=== PATIENT | male | born 1960 | race Caucasian/White ===

== ENCOUNTER → 2017-05-23 09:41 | Outpatient (CLI) | payer OTHER, SELFPAY ==
--- NOTE | 2017-05-23 09:42 | CDU_ITS ---
Reason For Study: Carotid stenosis Rt. Velocities/BP Lt. Velocities/BP Prox CCA 117.0/18.2 cm/sec. Prox CCA 135.0/29.5 cm/sec. Mid CCA 113.0/12.9 cm/sec. Mid CCA 115.0/23.6 cm/sec. Dist CCA 93.8/15.8 cm/sec. Dist CCA 90.4/22.0 cm/sec. Prox ICA 165.0/54.2 cm/sec. Prox ICA 47.5/15.3 cm/sec. Mid ICA 111.0/34.8 cm/sec. Mid ICA 65.8/23.6 cm/sec. Dist ICA 84.8/24.2 cm/sec. Dist ICA 60.5/20.6 cm/sec. Rt. ICA/CCA = 1.5. Lt. ICA/CCA = .57. Prox ECA 99.7/10.6 cm/sec. Prox ECA 116.0/15.7 cm/sec. Rt. Vert. 56.3/14.7 cm/sec. Lt. Vert. 45.1/14.1 cm/sec. Right Extracranial There is intimal thickening but no significant atherosclerotic plaque noted in the right common carotid artery. There is heterogeneous, irregular atherosclerotic plaque noted in the right internal carotid artery. There is homogeneous, smooth atherosclerotic plaque noted in the right external carotid artery. Antegrade flow is noted in the right vertebral artery. Left Extracranial There is homogeneous, smooth atherosclerotic plaque noted in the left common carotid artery. There is no significant atherosclerotic plaque noted in the left internal carotid artery. There is no significant atherosclerotic plaque noted in the left external carotid artery. Antegrade flow is noted in the left vertebral artery. Procedure Carotid Duplex [id number]. Exam performed in department. Interpretation Summary Irregular, calcific plague at the proximal right internal carotid with 50-69% stenosis. Post - operative patch changes of the left carotid bulb and proximal internal carotid with <50% stenosis. Normal flow bilateral external carotids. Patent and antegrade bilateral vertebrals Ordering Physician: Blane Bronson Referring Physician: Blane Bronson Performed By: Estefanía Klein RVT
== END ==
PROVIDERS: Family Provider Family Medicine; PCP Family Medicine; Visit Provider Surgery
DX: I65.23 Occlusion and stenosis of bilateral carotid arteries (principal)
CPT/HCPCS: 93880

== ENCOUNTER → 2018-08-05 07:40 | Outpatient (CLI) | payer OTHER, SELFPAY ==
[2017-03-06 08:17] VITALS: BMI 25.5
--- NOTE | 2018-08-05 07:42 | CDU_ITS ---
Reason For Study: Carotid stenosis Rt. Velocities/BP Lt. Velocities/BP Prox CCA 115.2/22.6 cm/sec. Prox CCA 115.6/26.1 cm/sec. Mid CCA 106/18.6 cm/sec. Mid CCA 95.5/18.8 cm/sec. Dist CCA 74.7/18.6 cm/sec. Dist CCA 87.6/20 cm/sec. Prox ICA 233.9/62.9 cm/sec. Prox ICA 62.6/19.2 cm/sec. Mid ICA 174.3/44.8 cm/sec. Mid ICA 78.3/26.7 cm/sec. Dist ICA 139.4/40.7 cm/sec. Dist ICA 82.8/34.4 cm/sec. Rt. ICA/CCA = 2.2. Lt. ICA/CCA = 0.9. Prox ECA 89.1/8.2 cm/sec. Prox ECA 115.8/15.1 cm/sec. Rt. Vert. 59.8/14.5 cm/sec. Lt. Vert. 55.3/17.9 cm/sec. Right Extracranial There is homogeneous, smooth atherosclerotic plaque noted in the right common carotid artery. There is heterogeneous, irregular atherosclerotic plaque noted in the right internal carotid artery. There is homogeneous, smooth atherosclerotic plaque noted in the right external carotid artery. Antegrade flow is noted in the right vertebral artery. Left Extracranial There is heterogeneous, irregular atherosclerotic plaque noted in the left common carotid artery. There is intimal thickening but no significant atherosclerotic plaque noted in the left internal carotid artery. There is intimal thickening but no significant atherosclerotic plaque noted in the left external carotid artery. Antegrade flow is noted in the left vertebral artery. Procedure Carotid Duplex 35850. Exam performed in department. Interpretation Summary Irregular calcific plague at the proximal right internal and external carotid arteries. >70% stenosis right internal carotid <50% stenosis right external carotid Patent and antegrade right vertebral Post operative changes left carotid bulb and proximal internal carotid with irregular plague <50% stenosis left internal carotid <50% stenosis left external carotid Patent and antegrade left vertebral Findings suggest progression of disease on the right since 05/23/18 Ordering Physician: Blane Bronson Referring Physician: Blane Bronson Performed By: Nan Shipman RVT
== END ==
PROVIDERS: Family Provider Family Medicine; PCP Family Medicine; Referring Provider Surgery; Visit Provider Surgery
DX: I65.22 Occlusion and stenosis of left carotid artery (principal); I77.9 Disorder of arteries and arterioles, unspecified
CPT/HCPCS: 93880

== ENCOUNTER → 2018-09-17 09:27 | Outpatient (CLI) | payer OTHER, SELFPAY ==
--- NOTE | 2018-09-17 09:33 | STEWCON_ITS ---
Reason For Study: CHEST PAIN Stress Results Protocol: Stress Echocardiogram Maximum Predicted HR: 160 bpm Target HR: 136 bpm % Maximum Predicted HR: 91 % DurationHeart Rate Stage (mm:ss) (bpm) BP Comment BASELINE 65 135/793CC DILUTED DEFINITY USED DURING STRESS ALLISON PROTOCOL- STAGE 1 3:00 110 140/80NO SX ALLISON PROTOCOL- STAGE 2 3:00 128 158/82NO SX ALLISON PROTOCOL- STAGE 3 2:30 146 160/84SL SOB, LEG PAIN RECOVERY 96 150/80SX RESOLVED Stress Duration: 8:30 mm:ss Maximum Stress HR: 146 bpm METS: 9 Baseline Echocardiogram Findings Stress Echo Wall motion Data Resting WM Intermediate WM Stress WM Resting Wall Motion Wall Motion Stress All segments Normal. All segments Hyperkinetic. Ejection Fraction 55 %. Ejection Fraction 65 %. Stress Results Heart rate response: Normal resting heart rate-appropriate response Blood pressure: Resting hypertension-appropriate blood pressure response Arrhythmias: None Functional capacity: Good Stopped: Secondary to dyspnea and leg discomfort. EKG Data The baseline ECG displays normal sinus rhythm. Exercise ECG: Somatic/motion artifact with no obvious ECG changes. Symptoms with Stress No complaint of chest discomfort during exercise or recovery. Interpretation Summary Technically difficult study Contrast injection performed Negative (adequate) stress echocardiogram Ordering Physician: Valeriy Bobo Referring Physician: Valeriy Bobo Performed By: Jessica Wills, ROSSANA, RVT
== END ==
PROVIDERS: Family Provider Family Medicine; PCP Family Medicine; Referring Provider Family Medicine; Visit Provider Family Medicine
DX: R07.9 Chest pain, unspecified (principal); R00.2 Palpitations
CPT/HCPCS: 93017; 93225; 93226; 93350; Q9957; A4216; C8928

== ENCOUNTER → 2019-05-26 09:44 | Outpatient (CLI) | payer OTHER, SELFPAY ==
--- NOTE | 2019-05-26 09:46 | CDU_ITS ---
Reason For Study: Carotid stenosis Rt. Velocities/BP Lt. Velocities/BP Prox CCA 117.8/17.3 cm/sec. Prox CCA 112/22.5 cm/sec. Mid CCA 102.1/21.3 cm/sec. Mid CCA 96.2/22.5 cm/sec. Dist CCA 74.7/17.3 cm/sec. Dist CCA 85.1/21.2 cm/sec. Prox ICA 187.3/57.8 cm/sec. Prox ICA 55.1/20.1 cm/sec. Mid ICA 153.6/42.2 cm/sec. Mid ICA 91.5/35.5 cm/sec. Dist ICA 117.4/35.3 cm/sec. Dist ICA 68.8/25.2 cm/sec. Rt. ICA/CCA = 1.8. Lt. ICA/CCA = 1.0. Prox ECA 106/10.8 cm/sec. Prox ECA 117.4/17 cm/sec. Rt. Vert. 54.2/10.2 cm/sec. Lt. Vert. 55.3/17.9 cm/sec. Right Extracranial There is homogeneous, smooth atherosclerotic plaque noted in the right common carotid artery. There is heterogeneous, irregular atherosclerotic plaque noted in the right internal carotid artery. Unable to demonstrate correlating velocities in the KATIE as compared to 08/05/2018. There is homogeneous, smooth atherosclerotic plaque noted in the right external carotid artery. Antegrade flow is noted in the right vertebral artery. Left Extracranial There is heterogeneous, irregular atherosclerotic plaque noted in the left common carotid artery. There is heterogeneous, irregular atherosclerotic plaque noted in the left internal carotid artery. There is intimal thickening but no significant atherosclerotic plaque noted in the left external carotid artery. Antegrade flow is noted in the left vertebral artery. Procedure Carotid Duplex 24073. Exam performed in department. Interpretation Summary Irregular calcific plaque at the proximal right internal carotid 50-69% stenosis right internal carotid <50% stenosis right external carotid Postoperative change left carotid bulb and proximal internal carotid with irregular calcific plaque noted. <50% stenosis left internal carotid Patent, antegrade vertebrals bilaterally Ordering Physician: Blane Bronson Referring Physician: Valeriy Bobo Performed By: Nan Shipman RVT
== END ==
PROVIDERS: PCP Family Medicine; Referring Provider Surgery; Visit Provider Surgery
DX: I65.22 Occlusion and stenosis of left carotid artery (principal)
CPT/HCPCS: 93880

== ENCOUNTER → 2020-02-03 | Outpatient (CLI) | payer OTHER, SELFPAY ==
[2019-06-30 14:05] VITALS: BMI 25.5
--- NOTE | 2020-02-03 | IMM_PTH ---
PATIENT: EVANGELINA CALHOUN LOC: [facility] U#:[id number] AGE/SX: 59/M ROOM: RE02/03/[address]: Dr. Jose Wing MD : 1960 BED: DIS: 02/03/2020 SPEC #: [id number] RECD: 02/04/20 13:22 STATUS: ALEXSANDRA REQ #: [id number] TIKI: 02/03/20 00:[address]: Jose Wing DEPT: IMMUNOHISTOCHEMISTRY RECD BY: Shaylee Kelly ENTERED: 02/04/20 13:22 SP TYPE: IMMUNO OTHR DR: Dr. Valeriy Bobo MD Tissues: F - PROSTATE LEFT Procedures: P40 (add) 34BE12 (initial) PHYSICIAN & INSTITUTION [place] [id number] SPECIMEN INFORMATION: Tissue Source: F - Left prostate, base, core biopsy Clinical Info: Elevated PSA Specimen Number: [id number] CPT code: 90448, 14705 METHODOLOGY: Deparaffinized sections of prefer/formalin-fixed tissue or PAP/DQ stained slides are incubated with monoclonal/polyclonal antibodies/oligonucleotide probes. Localization is made via biotin free immunoperoxidase method. Appropriate controls are performed and reacted as expected. Results on target cell population are indicated in the following table: RESULTS: ANTIBODY / CLONE RESULT Block F P40 (BC28) positive 34BE12 (34BE12) positive These tests were developed and their performance characteristics determined by [facility]. They may not have been cleared or approved by the U.[place]. Food and Drug Administration. The FDA has determined that such clearance or approval is not necessary. The above immunohistochemical/dualISH markers are ordered and reviewed by the Pathologist. INTERPRETATION: F. Left prostate, base, core biopsy: Consistent with focal high-grade prostatic intraepithelial neoplasia (HGPIN). MARQUITA:daren 02/05/20
--- NOTE | 2020-02-03 11:30 | PROSBIL_PTH ---
PATIENT: EVANGELINA CALHOUN LOC: [facility] U#:[id number] AGE/SX: 59/M ROOM: RE02/03/[address]: Dr. Jose Wing MD : 1960 BED: DIS: 02/03/2020 SPEC #: [id number] RECD: 02/03/20 13:09 STATUS: ALEXSANDRA REPapo #: [id number] TIKI: 02/03/20 11:[address]: Jose Wing DEPT: SURGICAL PATHOLOGY RECD BY: Megan Johnson ENTERED: 02/03/20 13:10 SP TYPE: PROST BX NEIL DR: Dr. Valeriy Bobo MD Tissues: A - PROSTATE RIGHT B - PROSTATE RIGHT C - PROSTATE RIGHT D - PROSTATE LEFT E - PROSTATE LEFT F - PROSTATE LEFT Procedures: PROSTATE BX HEADER OPERATION: Prostate biopsy PRE-OP DIAGNOSIS: Elevated PSA TISSUE SUBMITTED: A - Right apex, B - Right mid, C - Right base, D - Left apex, E - Left mid, F - Left base MICROSCOPIC DIAGNOSIS A. Right prostate, apex, core biopsy: Prostatic tissue, negative for malignancy. Focal atrophy and mild chronic inflammation. B. Right prostate, mid, core biopsy: Prostatic tissue, negative for malignancy. Focal mild acute and chronic inflammation. C. Right prostate, base, core biopsy: Prostatic tissue, negative for malignancy. Focal mild acute and chronic inflammation. D. Left prostate, apex, core biopsy: Prostatic tissue, negative for malignancy. E. Left prostate, mid, core biopsy: Prostatic tissue, negative for malignancy. Focal mild chronic inflammation. F. Left prostate, base, core biopsy: Focal high-grade prostatic intraepithelial neoplasia (HGPIN). Focal atrophy and chronic inflammation. See comment. SJ:daren 02/04/20 COMMENT F. Immunohistochemistry ([id number]) supports the above diagnosis. MICROSCOPIC DESCRIPTION Slides are reviewed. GROSS DESCRIPTION A - Received is one container designated prostate, right apex. The specimen consists of one elongated fragment of light wright-white soft tissue measuring 1.7 cm in length and 0.1 cm in diameter. The specimen is totally submitted in one cassette. B - Received is one container designated prostate, right mid. The specimen consists of two elongated fragments of light wright-white soft tissue measuring 1.2 and 1.8 cm in length and 0.1 cm in diameter. The specimen is totally submitted in one cassette. C - Received is one container designated prostate, right base. The specimen consists of two elongated fragments of light wright-white soft tissue each measuring 1.5 cm in length and 0.1 cm in diameter. The specimen is totally submitted in one cassette. D - Received is one container designated prostate, left apex. The specimen consists of one elongated fragment of light wright-white soft tissue measuring 1.2 cm in length and 0.1 cm in diameter. The specimen is totally submitted in one cassette. E - Received is one container designated prostate, left mid. The specimen consists of two elongated fragments of light wright-white soft tissue measuring 1.5 and 1.7 cm in length and 0.1 cm in diameter. The specimen is totally submitted in one cassette. F - Received is one container designated prostate, left base. The specimen consists of two elongated fragments of light wright-white soft tissue each measuring 1.5 cm in length and 0.1 cm in diameter. The specimen is totally submitted in one cassette. / SJ:rg 02/03/20 TC:3 CPT: 14374 x6
== END | disposition home or self-care (01) ==
LOC: LABSPEC 12:43
PROVIDERS: PCP Family Medicine; Visit Provider Urology
DX: R97.20 Elevated prostate specific antigen [PSA] (principal)
CPT/HCPCS: 88305; 88341; 88342; G0416

== ENCOUNTER → 2020-06-09 08:41 | Outpatient (CLI) | payer OTHER, SELFPAY ==
[2019-06-30 14:05] VITALS: BMI 25.5
--- NOTE | 2020-06-09 08:43 | CDU_ITS ---
Reason For Study: carotid stenosis Rt. Velocities/BP Lt. Velocities/BP Prox CCA 100.8/16.0 cm/sec. Prox CCA 134.4/19.4 cm/sec. Mid CCA 111.2/22.6 cm/sec. Mid CCA 119.8/28.5 cm/sec. Dist CCA 104.7/18.6 cm/sec. Dist CCA 114.3/24.8 cm/sec. Prox ICA 202.6/44.6 cm/sec. Prox ICA 66.0/16.9 cm/sec. Mid ICA 190.0/34.2 cm/sec. Mid ICA 92.6/32.2 cm/sec. Dist ICA 135.2/36.4 cm/sec. Dist ICA 40.3/12.2 cm/sec. Rt. ICA/CCA = 202.6/111.2=1.8. Lt. ICA/CCA = 92.6/134.4=0.7. Prox ECA 108.6/13.4 cm/sec. Prox ECA 145.4/8.4 cm/sec. Rt. Vert. 47.9/13.0 cm/sec. Lt. Vert. 52.0/18.0 cm/sec. Right Extracranial There is homogeneous, smooth atherosclerotic plaque noted in the right common carotid artery. There is heterogeneous, irregular atherosclerotic plaque noted in the right internal carotid artery. There is homogeneous, smooth atherosclerotic plaque noted in the right external carotid artery. Antegrade flow is noted in the right vertebral artery. There is heterogeneous, irregular atherosclerotic plaque noted in the right bulb. Left Extracranial There is heterogeneous, irregular atherosclerotic plaque noted in the left common carotid artery. There is heterogeneous, irregular atherosclerotic plaque noted in the left internal carotid artery. There is homogeneous, smooth atherosclerotic plaque noted in the left external carotid artery. Antegrade flow is noted in the left vertebral artery. Procedure Carotid Duplex 59307. This is a Carotid Duplex examination using B-mode, color flow and specral Doppler. Exam performed in department. VL/Carotid Duplex Ultrasound Interpretation Summary Irregular plague at the proximal right internal carotid with 50-69% stenosis. <50% stenosis right external carotid Post-operative changes left carotid bulb and proximal internal carotid with <50 % stenosis left internal carotid <50% stenosis left external carotid Patent, antegrade vertebrals bilaterally No change from 05/26/19 Ordering Physician: Blane Bronson Referring Physician: Valeriy Bobo Performed By: Jessica Wills, RDCS, RVT
== END ==
PROVIDERS: PCP Family Medicine; Referring Provider Surgery; Visit Provider Surgery
DX: I65.23 Occlusion and stenosis of bilateral carotid arteries (principal)
CPT/HCPCS: 93880

== ENCOUNTER → 2020-06-17 09:14 | Outpatient (CLI) | payer OTHER, SELFPAY ==
[2019-06-30 14:05] VITALS: BMI 25.5
[2020-06-17 10:22] LABS: PSA,Total- Diagnostic 7.45 ng/mL (0.0-4.0)
== END ==
PROVIDERS: PCP Family Medicine; Referring Provider Urology; Visit Provider Urology
DX: R97.20 Elevated prostate specific antigen [PSA] (principal)
CPT/HCPCS: 36415; 84153

== ENCOUNTER → 2020-10-18 14:15 | Outpatient (CLI) | payer OTHER, SELFPAY ==
[2020-10-18 15:36] LABS: PSA,Total- Diagnostic 5.68 ng/mL (0.0-4.0)
== END ==
PROVIDERS: PCP Family Medicine; Referring Provider Urology; Visit Provider Urology
DX: R97.20 Elevated prostate specific antigen [PSA] (principal)
CPT/HCPCS: 36415; 84153

== ENCOUNTER → 2021-06-24 | Outpatient (CLI) | payer OTHER, SELFPAY ==
--- NOTE | 2021-06-24 07:42 | CDU_ITS ---
Reason For Study: Carotid stenosis Rt. Velocities/BP Lt. Velocities/BP Prox CCA 106.5/18.8 cm/sec. Prox CCA 104.4/26.7 cm/sec. Mid CCA 95.5/17 cm/sec. Mid CCA 109.6/29.3 cm/sec. Dist CCA 70.4/15.1 cm/sec. Dist CCA 95/20.4 cm/sec. Prox ICA 253.1/78.5 cm/sec. Prox ICA 58.6/17.9 cm/sec. Mid ICA 161.4/44.8 cm/sec. Mid ICA 94.8/31.1 cm/sec. Dist ICA 86.2/24.8 cm/sec. Dist ICA 98.1/35.5 cm/sec. Rt. ICA/CCA = 2.65. Lt. ICA/CCA = 0.94. Prox ECA 88.8/9 cm/sec. Prox ECA 88.2/6 cm/sec. Rt. Vert. 46.6/9.7 cm/sec. Lt. Vert. 48.5/15.4 cm/sec. Right Extracranial There is homogeneous, smooth atherosclerotic plaque noted in the right common carotid artery. There is heterogeneous, irregular atherosclerotic plaque noted in the right internal carotid artery. There is homogeneous, smooth atherosclerotic plaque noted in the right external carotid artery. Antegrade flow is noted in the right vertebral artery. Left Extracranial There is heterogeneous, irregular atherosclerotic plaque noted in the left common carotid artery. There is heterogeneous, irregular atherosclerotic plaque noted in the left internal carotid artery. There is heterogeneous, irregular atherosclerotic plaque noted in the left external carotid artery. Antegrade flow is noted in the left vertebral artery. Procedure Carotid Duplex 55112. This is a Carotid Duplex examination using B-mode, color flow and specral Doppler. Prelim to Nallely. Exam performed in department. VL/Carotid Duplex Ultrasound Interpretation Summary Irregular calcific plaque at the proximal right internal carotid artery with gr eater than 70% stenosis. Less than 50% stenosis right external carotid artery Postoperative changes of the left carotid bulb and proximal internal carotid ar omer with less than 50% stenosis of the internal carotid artery Less than 50% stenosis left external carotid artery Patent and antegrade vertebral arteries bilaterally Slight progression of disease involving the right proximal internal carotid art cindy from the previous examination of June 09, 2020 Ordering Physician: Blane Bronson Referring Physician: Valeriy Bobo Performed By: Nan Shipman RVT
== END | disposition home or self-care (01) ==
LOC: CVS 07:39
PROVIDERS: PCP Family Medicine; Referring Provider Surgery; Visit Provider Surgery
DX: I65.23 Occlusion and stenosis of bilateral carotid arteries (principal)
CPT/HCPCS: 93880

== ENCOUNTER → 2021-07-25 | Outpatient (CLI) | payer OTHER, SELFPAY ==
--- NOTE | 2021-07-25 06:56 | CT_ITS ---
INDICATION: CAROTID STENOSIS EXAMINATION: CTA NECK - CTA Neck WO/W Contrast Injection TECHNIQUE: Routine carotid CT angiogram protocol was performed without and with IV contrast. NASCET criteria using the distal ICAs for comparison were used for evaluation of stenoses. 3D reconstructions were reviewed. A radiation dose optimization technique was used for this scan. IV Contrast dosage and agent: 100 cc [id number] COMPARISON: None. FINDINGS: AORTIC ARCH AND BRANCHES: Normal anatomy, patent. RIGHT CCA: Prominent calcific plaquing at the carotid bulb. No occlusion, significant stenosis or dissection. RIGHT ICA: No occlusion, significant stenosis or dissection. LEFT CCA: Surgical changes of endarterectomy noted at the left carotid bulb. LEFT ICA: No occlusion, significant stenosis or dissection. RIGHT VERTEBRAL ARTERY: No occlusion, significant stenosis or dissection. LEFT VERTEBRAL ARTERY: No occlusion, significant stenosis or dissection. NECK SOFT TISSUES: Unremarkable. LUNG APICES: Clear. BONES: Unremarkable. CT/CTA Neck W/WO Contrast IMPRESSION: No evidence of arterial stenosis, occlusion or dissection. Electronically Signed: August Mcgee MD at 11:54 EDT ,
[2021-07-25 07:06] LABS: CREATININE FINGERSTICK < 0.9 mg/dL (0.70-1.30); EGFR FINGERSTICK > 60.0000 mL/min (>60)
== END | disposition home or self-care (01) ==
LOC: CT 06:54
PROVIDERS: PCP Family Medicine; Referring Provider Surgery; Visit Provider Surgery
DX: Z01.812 Encounter for preprocedural laboratory examination (principal); I65.23 Occlusion and stenosis of bilateral carotid arteries
CPT/HCPCS: 70498; Q9967

== ENCOUNTER 2021-08-29 05:00 | Inpatient (IN) | payer OTHER, SELFPAY ==
--- NOTE | 2021-08-23 08:12 | EKG12_ITS ---
Test Reason : PRE OP Blood Pressure : / mmHG Vent. Rate : 064 BPM Atrial Rate : 064 BPM P-R Int : 154 ms QRS Dur : 092 ms QT Int : 394 ms P-R-T Axes : 045 082 060 degrees QTc Int : 406 ms Normal sinus rhythm Normal ECG Confirmed by ANDREA MCGEE, MANA ([id number]), art editor CUATE ASHFORD ([id number]) on 08/24/2021 9:36:02 AM Referred By: Blane Bronson Confirmed By:MANA MENDEZ MD
[2021-08-23 08:58] LABS: Hematocrit 45.1 % (40-54); Hemoglobin 14.9 g/dL (13.0-16.5); Mean Corpuscular Hgb 29.3 pg (27.0-32.0); Mean Corpuscular Volume 88.6 fL (80-94); Mean Platelet Vol. 9.6 fl (6.2-12.0); Platelet Count 233 K/mm3 (150-450); RBC Distribution Width CV 14.7 % (11.6-14.6); RBC Distribution Width SD 48.1 fl (35.1-43.9); Red Blood Count 5.09 M/mm3 (4.6-6.2); White Blood Count 8.9 K/mm3 (4.4-11.0)
[2021-08-23 09:21] LABS: Anion Gap 10 (5-15); BUN 12 mg/dL (7-18); BUN/Creat Ratio 13.1 RATIO (10-20); Calcium,Total 8.6 mg/dL (8.5-10.1); Chloride 104 mmol/L (98-107); Creatinine, Serum 0.92 mg/dL (0.70-1.30); EST Glomerular Filtration Rate 89 mL/min (>60); Est Glom Filt Rate - Afr Amer 107 mL/min (>60); Glucose 145 mg/dL (74-106); Sodium Level 137 mmol/L (136-145)
[2021-08-29] VITALS (21 sets, daily range): BP systolic 117–157; BP diastolic 64–88; PULSE 58–89; RESP 14–143; TEMP 36.2–37.3; O2SAT 16–100; BMI 27.0
--- NOTE | 2021-08-29 05:17 | HP.PCM_ITS ---
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 Is patient in pain?: No Allergies No Known Allergies Allergy (Verified 07/27/21 09:59) Medications amlodipine 5 mg PO DAILY 08/22/15 [History Confirmed 07/27/21] Lactobacillus acidophilus 1.5 mg (250 million cell) capsule 100 mmu cells PO DAILY 06/30/19 [History Confirmed 07/27/21] calcium cmb no.1-vit [id number]-B12 120 mg-1,000 unit-10 mg tablet tab PO 06/30/19 [History Confirmed 07/27/21] lisinopril 20 mg tablet 20 mg PO DAILY 06/30/19 [History Confirmed 07/27/21] multivitamin 1 tab PO DAILY 06/30/19 [History Confirmed 07/27/21] omega-3 fatty acids 1,000 mg capsule 1,000 mg PO DAILY 06/30/19 [History Confirmed 07/27/21] PFSH Medical History? Benign essential hypertension Carotid arterial disease Chest pain HLD (hyperlipidemia) Tobacco use disorder Surgical History? Carotid stenosis, left Hx of esophagogastroduodenoscopy Hx of eye surgery S/P appendectomy S/P colonoscopy Family History? Father Lung cancer Social History? Smoking Status:? Current every day smoker second hand exposure:? Yes alcohol intake:? current substance use type:? does not use caffeine:? No what type of physical activity do you participate in:? walking, running and weight training frequency:? 3-4 times per week seatbelt use:? 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 As noted below I saw this patient in the office on July 18, 2021.? 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 On July 25, 2021 at the [facility] the patient had a CTA of the carotid.? The initial interpretation per radiology was no significant disease.? However I personally reviewed the images and detected that he had postoperative changes of the left carotid bulb and internal carotid artery which was widely patent but that he also had clinically significant stenosis with calcific disease at the origin of the right internal carotid artery and more over that he had obvious atrophy of the right internal carotid artery consistent with a lower flow state.? This is actually rather dramatic in comparison from the right to the left internal carotid.? Fortunately I was able to get radiology to make a correct addendum on their initial interpretation. ADDENDUM by Dr. August Mcgee MD on 07/25/21 at 1541 ADDENDUM There may be an ulcerated lack at the origin of the right internal carotid artery.? There may be no greater than 70% stenosis at the origin of the right internal carotid artery. Electronically Signed: August Mcgee MD at 15:41 EDT , 07/25/21 1541Date cc:? Dr. Blane Bronson MD; Dr. Valeriy Bobo MD ~*Signed ADDENDUM by Dr. August Mcgee MD on 07/25/[address]/CTA Neck W/WO Contrast IMPRESSION: undefined 07/25/21 1548Date cc:? Dr. Blane Bronson MD; Dr. Valeriy Bobo MD ~*Signed INDICATION: CAROTID STENOSIS EXAMINATION: CTA NECK - CTA Neck WO/W Contrast Injection TECHNIQUE:? Routine carotid CT angiogram protocol was performed without and with IV contrast. NASCET criteria using the distal ICAs for comparison were used for evaluation of stenoses. 3D reconstructions were reviewed.? A radiation dose optimization technique was used for this scan. IV Contrast dosage and agent: 100 cc [id number] COMPARISON: None. FINDINGS: AORTIC ARCH AND BRANCHES: Normal anatomy, patent. RIGHT CCA: Prominent calcific plaquing at the carotid bulb.? No occlusion, significant stenosis or dissection. RIGHT ICA: No occlusion, significant stenosis or dissection. LEFT CCA: Surgical changes of endarterectomy noted at the left carotid bulb. LEFT ICA: No occlusion, significant stenosis or dissection. RIGHT VERTEBRAL ARTERY: No occlusion, significant stenosis or dissection. LEFT VERTEBRAL ARTERY: No occlusion, significant stenosis or dissection. NECK SOFT TISSUES: Unremarkable. LUNG APICES: Clear. BONES: Unremarkable. CT/CTA Neck W/WO Contrast IMPRESSION: ? No evidence of arterial stenosis, occlusion or dissection. ? Electronically Signed: August Mcgee MD at 11:54 EDT Reading Location ID and State: [facility] / [place] Tel , Service support? , I have just recently seen this patient in the office on July 18, 2021 and my note follows Intake Visit Reasons: FU COROTID Chief Complaint: carotid US results Allergies No Known Allergies Allergy (Verified 07/18/21 07:24) Medications amlodipine 5 mg PO DAILY 08/22/15 [History Confirmed 07/18/21] Lactobacillus acidophilus 1.5 mg (250 million cell) capsule 100 mmu cells PO DAILY 06/30/19 [History Confirmed 07/18/21] calcium cmb no.1-vit V7-R8-OR-B12 120 mg-1,000 unit-10 mg tablet tab PO 06/30/19 [History Confirmed 07/18/21] lisinopril 20 mg tablet 20 mg PO DAILY 06/30/19 [History Confirmed 07/18/21] multivitamin 1 tab PO DAILY 06/30/19 [History Confirmed 07/18/21] omega-3 fatty acids 1,000 mg capsule 1,000 mg PO DAILY 06/30/19 [History Confirmed 07/18/21] [facility] Medical History (Updated 07/18/21 @ 07:[address] Blane Bronson MD) Benign essential hypertension Carotid arterial disease Chest pain HLD (hyperlipidemia) Tobacco use disorder Surgical History Carotid stenosis, left Hx of esophagogastroduodenoscopy Hx of eye surgery S/P appendectomy S/P colonoscopy Family History Father Lung cancer Social History Smoking Status:? Current every day smoker second hand exposure:? Yes alcohol intake:? current substance use type:? does not use caffeine:? No what type of physical activity do you participate in:? walking, running and weight training frequency:? 3-4 times per week seatbelt use:? always HPI HPI HPI: EVANGELINA CALHOUN, is a 61 M who presents to the office today for follow-up of extracranial carotid artery occlusive disease.? His most recent visit with me was June 23, 2020.? Based upon carotid duplex imaging from June 09, 2020 his peak systolic velocity within the right internal carotid was 202 cm/s flow.? Currently that is slightly increased to 253 cm/s flow. Fortunately he is asymptomatic.? No hospitalizations over the past year.? Denies any focal TIAs. He continues to smoke cigarettes at the rate of a pack per day.? In addition he is not on a statin medication.? Claims that he is tried them in the past and developed sore muscles.? 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 He notes that he has had some trouble on the treadmill per tickly with the left calf cramping.? He was told by his chiropractor that it was probably low potassium.? The patient tried eating some more bananas but the problems not resolved. He is mildly hypertensive today.? He does take 2 blood pressure medications.? He is supposed to be on a low-dose aspirin and he takes it when he remembers it. He has known bilateral extracranial carotid artery occlusive disease.? On December 28, 2011 because of a preoperative TIA I performed a left carotid endarterectomy with bovine patch angioplasty.? He is done well since that time. As of August 05, 2018 bilateral carotid duplex imaging demonstrated peak systolic velocity within the right proximal internal carotid at 233 cm/s flow and peak systolic velocity on the left at 82 cm/s.? The patient has had a updated carotid duplex exam at the [facility] on May 26, 2019.? This demonstrates peak systolic velocity within the right proximal internal carotid at 187 cm/s and peak systolic velocity within the left internal carotid at 91 cm/s.? The current examination suggest 50 to 69% stenosis on the right and less than 50% stenosis on the left with postoperative changes on the left.? There is irregular calcific plaque noted bilaterally June 24, 2021 Reason For Study: Carotid stenosis Rt. Velocities/BP ? Lt. Velocities/BP Prox CCA 106.5/18.8 cm/sec. ? Prox CCA 104.4/26.7 cm/sec. Mid CCA 95.5/17 cm/sec. ? Mid CCA 109.6/29.3 cm/sec. Dist CCA 70.4/15.1 cm/sec.? Dist CCA 95/20.4 cm/sec. Prox ICA 253.1/78.5 cm/sec. ? Prox ICA 58.6/17.9 cm/sec. Mid ICA 161.4/44.8 cm/sec.? Mid ICA 94.8/31.1 cm/sec. Dist ICA 86.2/24.8 cm/sec.? Dist ICA 98.1/35.5 cm/sec. Rt. ICA/CCA = 2.65. ? Lt. ICA/CCA = 0.94. Prox ECA 88.8/9 cm/sec. ? Prox ECA 88.2/6 cm/sec. Rt. Vert. 46.6/9.7 cm/sec.? Lt. Vert. 48.5/15.4 cm/sec. Right Extracranial There is homogeneous, smooth atherosclerotic plaque noted in the right common carotid artery. There is heterogeneous, irregular atherosclerotic plaque noted in the right internal carotid artery. There is homogeneous, smooth atherosclerotic plaque noted in the right external carotid artery. Antegrade flow is noted in the right vertebral artery. Left Extracranial There is heterogeneous, irregular atherosclerotic plaque noted in the left common carotid artery. There is heterogeneous, irregular atherosclerotic plaque noted in the left internal carotid artery. There is heterogeneous, irregular atherosclerotic plaque noted in the left external carotid artery. Antegrade flow is noted in the left vertebral artery. Procedure Carotid Duplex 87268. This is a Carotid Duplex examination using B-mode, color flow and specral Doppler. Prelim to Nallely. Exam performed in department. VL/Carotid Duplex Ultrasound Interpretation Summary Irregular calcific plaque at the proximal right internal carotid artery with greater than 70% stenosis. Less than 50% stenosis right external carotid artery Postoperative changes of the left carotid bulb and proximal internal carotid ar omer with less than 50% stenosis of the internal carotid artery Less than 50% stenosis left external carotid artery Patent and antegrade vertebral arteries bilaterally Slight progression of disease involving the right proximal internal carotid artery from the previous examination of June 09, 2020 ? Ordering Physician: Blane Bronson Referring Physician: Valeriy Bobo Performed By: Nan Shipman RVT 06/24/21 0958Date Blane Bronson MD Exam Const General: cooperative, comfortable and no acute distress Nutritional Appearance: overweight Orientation: alert and awake [facility] Head: normal to inspection Neck Other: Well-healed left carotid incision Bilateral carotids approximately 3+.? No carotid bruits Chest Other: Increased AP diameter Resp Other: Diminished respiratory excursion, clear Cardio Rate: regular rate Rhythm: regular rhythm Other: Right femoral pulse 2+ left femoral pulse 1+.? Bilateral popliteals difficult to palpate GI Other: Soft, overweight, no bruits, not pulsatile or expansile Musc Cervical Spine: normal cervical lordosis Neuro General: patient alert, patient awake and patient oriented x3 Extrem General: no calf tenderness Psych Appearance: grossly normal Assessment and Plan Assessment and Plan (1) Tobacco use disorder: ? ? ? Status: Acute (2) Carotid stenosis, right: ? ? ? Status: Acute (3) PAOD (peripheral arterial occlusive disease): ? ? ? Status: Acute ? ? ? Plan - Dr. Blane Bronson MD: The patient has slow progression of his right extracranial carotid occlusive disease based upon carotid duplex imaging.? I recommend that we obtain a CTA of the carotids and we will have him return for further office consultation The patient describes symptoms that is very much consistent with vascular claudication left lower extremity.? Left femoral pulses diminished.? I have instructed him at this point we can pursue further investigation in the future.? We will follow through with his carotid determination and then can pursue his lo wer extremities pending recommendations for his carotid.? As noted fortunately he is still currently asymptomatic.? The patient has been urged multiple times to cease his tobacco use and just has been unable to. I appreciate the ongoing opportunity of assisting with surgical care Copy: Dr. Valeriy Bronson M.D., F.A.C.S. Assessment and Plan Assessment and Plan (1) Carotid stenosis, right: ?Status:?Acute ?Plan - Dr. Blane Bronson MD: Today was a 20-minute consultative appointment.? The patient's previously had a left carotid enterectomy performed by myself approximately 8 years ago.? He is quite familiar with that process.? I do recommend to him a right carotid enterectomy with patch angioplasty and arterial line monitoring.? I have demonstrated to him the atrophy of the right internal carotid distal to its origin at the site of the calcification.? I do believe that he has clinically significant stenosis at the origin of the right internal carotid.? He continues to smoke cigarettes which I believe continues to put him at increased risk.? He then goes on to say that in the morning he has had some filmlike debris over his right more than the left.? He was briefly seen by microsoft access developer who the patient suggested there was a dry eye syndrome.? Eyedrops were recommended and the patient states that this has improved that condition to a degree.? He additionally goes on to say that he was told that one of his retinal arteries was smaller than the other 1 but he honestly cannot remember which side had a smaller artery. He has had an opportunity to ask questions answered.? He wondered whether I would feel comfortable waiting till February 2022 and I suggested probably not.? He is aware that I cannot eliminate his risk of stroke and that with no surgical treatment is at risk and with surgical treatment he is at risk.? As he is an ongoing cigarette smoker I do believe that his risk of further disease progression is real and that I have offered him consideration of the surgical treatment. He states that he will consider the treatment options as described.? He then will recontact us as to how he would like to proceed.? He admits that he was well aware ever since he had a left carotid enterectomy that he likely would not have progression of disease on the right. Copy: Dr. Valeriy Bronson M.D., F.A.C.S. I have re-examined the patient. There are no clinical changes since date of exam. Blane Bronson M.D., F.A.C.S.
[2021-08-29] MEDS: 0.9% Normal Saline 1,000 ML 15 ML IV (06:02)
[2021-08-29] MEDS: Lactated Ringers 1,000 ML 15 ML IV ×2 (06:03→09:01)
--- NOTE | 2021-08-29 06:29 | OP.PCM_ITS ---
Report of Operation Date of Procedure: 08/29/21 Pre-Operative Diagnosis: Severe stenosis right extracranial internal carotid ar omer Post-Operative Diagnosis: Same Surgery/Procedure Performed:: Right radial arterial line placement Right carotid endarterectomy with bovine patch angioplasty Vascu-Guard 0.8 x 8 cm. Reference the [id number], lot number [id number], PN: [id number] Description of Surgical Findings:: Timeout and informed consent was obtained. At the bedside Venancio test was performed demonstrating adequate ulnar flow. The right wrist was gently extended and prepped with Betadine. Under ultrasound guidance 1% lidocaine was used as a local anesthetic. A total of 1 cc was used. Under ultrasound guidance an Angiocath was advanced into the artery and Seldinger wire technique was utilized. The catheter was secured to skin with 3-0 silk and OpSite dressing. Ryder wrap was applied. Good waveform was obtained. The patient tolerated the procedure well. Minimal blood loss. The hand was viable at the completion. No apparent complication. The patient was subsequently taken the operating for definitive surgical intervention. Timeout informed consent was obtained. The patient underwent general endotracheal intubation esthesia. Ancef 2 g were given intravenously preoperatively. The right neck was sterilely prepped and draped. An oblique incision was made along the anterior border the sternocleidomastoid. Sharp dissection was carried down through the subtenons tissue. The platysma was incised. The sternocleidomastoid was reflected laterally. Sharp and blunt dissection used to identify the common carotid carotid bulb and proximal right internal/external carotid arteries. A Cam tie of Dacron tape was placed around the common carotid Dacron tape Zamzam tourniquet around the internal carotid vessel loop around the external carotid and a Cam tie of 3-0 Vicryl around the superior thyroid artery. The patient received 9000 units of heparin. During the procedure based upon ACT measurements he received another 1000 units. Peripheral vascular clamps were placed on the common carotid internal carotid and external carotid. An 11 blade was used to make an arteriotomy which was extended with Cam scissors. It is of note that the internal carotid was dramatically diminutive in size. I was unable to get the #10 USC I style to insert in a very small orifice. I did an endarterectomy of the layer of the external elastic lamina. The plaque was sharply transected proximally large amount of calcific narrow plaque was removed from the carotid bulb and then the internal carotid was feathered. Further debris was carefully removed. It is of note that an inversion endarterectomy was performed of the external carotid. A 7-0 Prolene tacking suture was used at the internal carotid. The Vascu-Guard patch was shaped to form and a patch angioplasty created with a running 6-0 Prolene. Prior to completion there is good retrograde and antegrade flow. Patch angioplasty was completed. Clamps were removed. 2 repair sutures 1 proximally and distally of 7-0 Prolene was used for hemostasis. Then during some further adhesiolysis that dissection at the internal carotid to relieve some of the fibrinous tissue causing an abnormal curvature I did make a small opening in the internal carotid which I then repaired with a 7-0 Prolene. Pneumostasis was intact. The patient then had 30 mg of protamine as reversal agent. There was good pulsatile flow within the common carotid carotid bulb. Hemostasis was nicely intact. The wound was closed with the platysma layer running 3-0 Vicryl and the skin edges proximal and subicular 5-0 Vicryl. Incision was incised with 20 cc of 0.5% Marcaine. Steri-Strips, Telfa, tape dressing applied. Sponge and instrument and needle counts were reported to the surgeon to be correct. Specimens plaque. Drains none. Blood loss 250 cc. Blane Bronson M.D., F.A.C.S. Surgeon: Blane Bronson Type of Anesthesia: General and Local Anesthesiologist: Madina Garsia
--- NOTE | 2021-08-29 06:41 | DCINST_ITS ---
Discharge Instructions Diet Discharge Diet: Light diet - advance as tolerated Activity Discharge Activity: May Not Drive (For 5 to 7 days), May Not Shower (For 3 days. You may shower on .) and May Take a Tub Bath Weight Bearing Status: Full weight bearing Additional Activity Instructions:: You may shower starting on . Dressing / Incision Call your doctor if your incision/area has: Continuous Slow Oozing, Sudden Increased Bleeding and Increased Pain/ Swelling Call your doctor if you observe: Fever of 101 or Higher Suture Line Care: Avoid Pulling/Pushing Change Dressing in: 1 day (You may apply a dry gauze cover dressing to your incision as needed to protect from clothing irritation. Change as needed) Remove Dressing in: 1 week (Leave your Steri-Strips in place for 1 week then you may remove) Follow Up Care Please Follow Up With: Blane Bronson MD When: Approximately 10 days. Please call [phone] to arrange for an appointment Test Results: Test results from this visit will be discussed in further detail at your follow- up appointment, if applicable. Discharge Plan Admission Admit Date/Time: 08/29/21 05:00 Primary Reason for Your Visit: Severe stenosis right internal carotid artery Attending Provider: Blane Bronson Primary Care Provider: Valeriy Bobo Discharge Orders/Prescriptions Prescriptions: New aspirin 81 mg tablet,delayed release (DR/EC) 81 mg PO DAILY Qty: 360 0RF clopidogrel 75 mg tablet 75 mg PO DAILY Qty: 30 0RF Continued lisinopril 20 mg tablet 20 mg PO DAILY omega-3 fatty acids [Fish Oil Concentrate] 1,000 mg capsule 1,000 mg PO DAILY multivitamin Tablet 1 tab PO DAILY calcium cmb no.1-vit A9-J3-VJ-B12 120 mg-1,000 unit-10 mg tablet 120-1,000-10 mg-unit-mg tablet 1 tab PO DAILY amlodipine 5 MG tablet 5 mg PO DAILY Label Comments: hypertension sucralfate [Carafate] 1 gram Tablet 1 g PO BID PRN (Reason: GI UPSET) Other Ambulatory Orders: 12 Lead EKG (Routine) Timeframe: [id number] Location: None Selected Ordered By: Dr. Blane Bronson Referrals / Follow Up: Valeriy Bobo MD [Primary Care Provider] - Disposition Disposition (needs filled in before D/C Order can be placed): Home, Self Care
[2021-08-29] MEDS: Cefazolin 2 GM in 0.9% Normal Saline 100 ML IV (07:18)
--- NOTE | 2021-08-29 07:30 | PLAQ_PTH ---
PATIENT: EVANGELINA CALHOUN LOC: [facility] U#:[id number] AGE/SX: 61/M ROOM: LA315 RE08/29/[address]: Dr. Blane Bronson MD : 1960 BED: 1 DIS: 08/30/2021 SPEC #: [id number] RECD: 08/29/21 12:20 STATUS: ALEXSANDRA MCCLURE #: [id number] TIKI: 08/29/21 07:[address]: Blane Bronson DEPT: SURGICAL PATHOLOGY RECD BY: Alton Lorenzo ENTERED: 08/29/21 13:04 SP TYPE: PLAQUE OTHR DR: Dr. Valeriy Bobo MD Tissues: PLAQUE Procedures: Decalcification bone/plaque Surgery Specimen Level III HEADER OPERATION: Carotid endarterectomy with patch angioplasty and arterial PRE-OP DIAGNOSIS: Right carotid stenosis TISSUE SUBMITTED: Right carotid plaque MICROSCOPIC DIAGNOSIS Right carotid plaque, carotid endarterectomy: Calcified atheromatous plaque consistent with severe stenosis. AM:daren 08/31/2021 GROSS DESCRIPTION Received in fixative is one container labeled with the patient's name and designated right carotid plaque. The specimen consists of a previously opened Y-shaped piece of wright, indurated tubular tissue measuring 2.5 cm in length and up to 1.5 cm in diameter. The specimen cuts with gritty sensation. The entire specimen is submitted in one cassette after decalcification. / SJ:daren 08/30/2021 TC:5 CPT: 87715, 83877
[2021-08-29] MEDS: Heparin Injection (Vial) 5,000 UNIT/ML VIAL 5000 UNIT (09:31)
[2021-08-29] MEDS: Bupivacaine Mpf 0.5% 30 ML VIAL (09:37)
--- NOTE | 2021-08-29 13:42 | SUR.PHASEI ---
RIGHT RADIAL ARTERIAL DISCONTINUED INTACT. PRESSURE APPLIED TO RIGHT WRIST FOR APPROXIMATELY 10 MINUTES. NO ACTIVE BLEEDING OR HEMATOMA NOTED. DSD APPLIED
[2021-08-29] MEDS: Omega-3 Acid Ethyl Esters 1 GM Capsule PO (14:26)
[2021-08-29] MEDS: Cefazolin 1 GM/50 ML BAG IV ×2 (15:25→23:03)
[2021-08-29] MEDS: HYDROcodone Bitartrate/Apap 5/325 Tablet PO (20:11)
[2021-08-30 02:00] VITALS: BP 130/71; PULSE 55; RESP 18; TEMP 36.3; O2SAT 97
--- NOTE | 2021-08-30 06:08 | PCM.PN.SRG ---
Subjective Subjective Patient without complaints. Comfortable. Objective Data Objective Data Vital Signs: Vital Signs Temp Pulse Resp BP Pulse Ox 97.4 F L 55 L 18 130/71 H 97 08/30/21 02:00 08/30/21 02:00 08/30/21 02:00 08/30/21 02:00 08/30/21 02:00 Oxygen Flow Rate (L/min) 4 Oxygen Delivery Method Room Air Weight: 177 lb 14.609 oz Body Mass Index (BMI) 27.0 Intake & Output: Intake and Output for Last 24 Hours 08/28/21 08/29/21 08/30/21 23:59 23:59 23:59 Intake Total 4019 / 4019 120 / 120 Output Total 1025 / 1025 Balance 2994 / 2994 120 / 120 Lab / Micro Data Result Diagrams: 08/23/21 08:07 08/23/21 08:07 Physical Exam Narrative Right neck clean dry supple intact. Neuro intact. Assessment & Plan Assessment/Plan (1) Carotid stenosis, right: PLAN: The patient now admits that over the past week he had not been taking his routine 81 mg aspirin stating that he ran out of it. Because of the diminutive size of his internal carotid artery I will initiate him on clopidogrel therapy for 30 days in addition to low-dose aspirin. He is well aware that he is to remain on low-dose aspirin therapy for life. Plan for discharge. Blane Bronson M.D., F.A.C.S.
[2021-08-30] MEDS: Clopidogrel Bisulfate 75 MG Tablet PO (06:20)
[2021-08-30 07:50] LABS: ACT Activated Clotting Time 155 sec (74-137)
[2021-08-30 07:52] LABS: ACT Activated Clotting Time 271 sec (74-137)
[2021-08-30 07:54] LABS: ACT Activated Clotting Time 254 sec (74-137)
[2021-08-30 08:30] VITALS: BP 141/79; PULSE 63; RESP 16; TEMP 36.6; O2SAT 99
== END 2021-08-30 08:49 | disposition home or self-care (01) | DRG 39 ==
LOC: ACINP 05:43 → MS3 09:58
PROVIDERS: Admitting Provider Surgery; PCP Family Medicine; Referring Provider Surgery; Visit Provider Surgery
PROC: 03CM0ZZ Extirpation of Matter from Right External Carotid Artery, Open Approach (ICD-10-PCS; CPT 35301; principal; 2021-08-29 07:10)
DX: I65.21 Occlusion and stenosis of right carotid artery (principal); E78.5 Hyperlipidemia, unspecified; I73.9 Peripheral vascular disease, unspecified; I10 Essential (primary) hypertension; F17.210 Nicotine dependence, cigarettes, uncomplicated
CPT/HCPCS: 36415; 80048; 85027; 85347; 88304; 88311; 93005; 99251; 99406; J7040; J7050; J7120; G0463; J2405

== ENCOUNTER 2021-09-03 23:52 | Observation (INO) | payer OTHER, SELFPAY ==
[2021-09-03 23:53] VITALS: BP 163/82; PULSE 79; RESP 15; TEMP 36.6; O2SAT 99; BMI 27.3
[2021-09-03 23:59] VITALS: BP 155/88; PULSE 82; RESP 18; TEMP 36.4; O2SAT 98; BMI 28.2
[2021-09-04] VITALS (31 sets, daily range): BP systolic 77–184; BP diastolic 43–98; PULSE 66–100; RESP 12–24; TEMP 36.3–37.3; O2SAT 95–100; BMI 28.2; BMI 27.3
--- NOTE | 2021-09-04 00:02 | CT_ITS ---
STUDY: CTA NECK WITH CONTRAST REASON FOR EXAM: Male, 61 years old. post-op swelling RADIATION DOSAGE (If Supplied By Facility): CTDIvol = ( 23.77 ) mGy, DLP = ( 617.62 ) mGycm TECHNIQUE: CT angiography with multi-detector data acquisition was performed from the aortic arch to the skull base following intravenous administration of IV 100mL Isovue-370. MIP images were reconstructed from the axial data set. Post-processing of the angiographic images was performed, with multiplanar reformation and 3D reconstruction. Individualized dose optimization techniques were used for this CT. COMPARISON: None. FINDINGS: AORTIC ARCH: Normal. CAROTID ARTERIES: Normal. VERTEBRAL ARTERIES: Normal. OTHER ARTERIES: Normal. VENOUS STRUCTURES: Normal. BONES/SOFT TISSUES: Heterogeneous intermediate density collection in the superficial right neck inseparable from the sternocleidomastoid measuring 7.3 x 4.6 x 3.5 cm and focal 9 mm hyperattenuation. No acute osseous abnormality. OTHER: Left maxillary sinus mucosal thickening.. CT/CTA Neck W/WO Contrast IMPRESSION: 1. Heterogeneous collection in the right neck measuring up to 7.3 cm, likely represents hematoma with findings concerning for active extravasation. 2. No flow-limiting stenosis, aneurysm or dissection in the large vessels of the neck. Electronically Signed: Ced Griffith MD at 1:10 EDT ,
[2021-09-04 00:23] LABS: Absolute Lymphocyte Count 1.87 X10^3/uL (0.83-4.51); Absolute Neutrophil Count 7.3 X10^3/uL (2.0-7.7); Basophil# 0.09 X10^3/uL; Basophil% 0.9 % (0-1); Eosinophil# 0.23 X10^3/uL; Eosinophils% 2.3 % (0-5); Hematocrit 44.5 % (40-54); Hemoglobin 14.5 g/dL (13.0-16.5); Lymphocyte # 1.87 X10^3/ul (0.83-4.51); Lymphocyte % 18.5 % (19-41); Mean Corp Hgb Conc 32.6 g/dL (32-36); Mean Corpuscular Hgb 28.9 pg (27.0-32.0); Mean Corpuscular Volume 88.8 fL (80-94); Mean Platelet Vol. 9.1 fl (6.2-12.0); Monocyte# 0.59 X10^3/uL; Monocyte% 5.8 % (0-10); NRBC Flagged by Analyzer 0 % (0-5); Neutrophil # 7.26 X10^3/uL (2.7-7.7); Neutrophil % 71.6 % (47-70); Platelet Count 318 K/mm3 (150-450); RBC Distribution Width SD 45.1 fl (35.1-43.9); Red Blood Count 5.01 M/mm3 (4.6-6.2); White Blood Count 10.1 K/mm3 (4.4-11.0)
[2021-09-04] MEDS: Ondansetron 4 MG/2 ML Vial IV (00:24)
[2021-09-04] MEDS: Morphine 4 MG/ML Syringe IV (00:24)
[2021-09-04 00:34] LABS: Partial Thromboplast Time 34.6 Seconds (24.1-36.2); Prothrombin Time (Protime)PT. 12.4 SECONDS (11.7-14.9)
[2021-09-04 00:39] LABS: Anion Gap 9 (5-15); BUN 17 mg/dL (7-18); BUN/Creat Ratio 17.9 RATIO (10-20); Chloride 106 mmol/L (98-107); Creatinine, Serum 0.95 mg/dL (0.70-1.30); EST Glomerular Filtration Rate 85 mL/min (>60); Est Glom Filt Rate - Afr Amer 103 mL/min (>60); Estimated Creatinine Clearance 74.41 ml/min; Glucose 162 mg/dL (74-106); Potassium 3.9 mmol/L (3.5-5.1); Sodium Level 139 mmol/L (136-145)
--- NOTE | 2021-09-04 00:58 | EDS_ITS ---
HPI History of Present Illness Chief Complaint: Other, Pain/Inj Detail of Chief Complaint: neck pain/swelling Informant: patient Onset/Context/Timing Onset: Hours (1.5-2 hrs [employer]) Context: Sudden Onset Timing: Continuous Quality: sore/painful, swollen Location: R neck Current Severity: Severe Maximum Severity: Severe Worsened by: nothing Relieved by: nothing Associated Symptoms Associated Symptoms: none Narrative Narrative: Patient had a right carotid endarterectomy by Dr. Bronson about 6 days ago, he has had some mild swelling there but nothing severe until about an hour and a half or 2 hours prior to arrival, he was sitting watching TV when it started spontaneously becoming more painful and swollen and has quickly worsened. He denies any bleeding from the incision itself which has been doing well. He denies any neurologic symptoms, vision changes, headache. He is taking clopidogrel and no anticoagulants. [facility] Medical History Alcohol use Benign essential hypertension Bruises easily Bruising Carotid arterial disease Chest pain Difficulty with CPAP use Heartburn HLD (hyperlipidemia) Leg cramps Migraine headache Prostate disease Sleep apnea Smoker Tobacco use disorder Home Medications amlodipine 5 mg tablet 5 mg PO DAILY HTN 08/22/15 [History Last Taken 08/29/21 05:00] calcium cmb no.1-vit [id number]-MN-B12 120 mg-1,000 unit-10 mg tablet 1 tab PO DAILY SUPPLEMENT 06/30/19 [History Last Taken Unknown] lisinopril 20 mg tablet 20 mg PO DAILY HTN 06/30/19 [History Last Taken 08/29/21 05:00] multivitamin 1 tab PO DAILY SUPPLEMENT 06/30/19 [History Last Taken Unknown] omega-3 fatty acids 1,000 mg capsule (Fish Oil Concentrate) 1,000 mg PO DAILY SUPPLEMENT 06/30/19 [History Last Taken Unknown] sucralfate 1 gram tablet (Carafate) 1 g PO BID PRN GI UPSET 08/22/21 [History Last Taken Unknown] aspirin 81 mg tablet,delayed release 81 mg PO DAILY #360 tabs 08/30/21 [Rx Last Taken Unknown] clopidogrel 75 mg tablet 75 mg PO DAILY #30 tabs 08/30/21 [Rx Last Taken Unknown] Allergy/AdvReac Type Severity Reaction Status Date / Time doxycycline Allergy Rash Verified 09/04/21 00:04 prednisone Allergy Rash Verified 09/04/21 00:04 atorvastatin AdvReac Other Verified 09/04/21 00:04 Nyfsgex-RLU-XnM Reductase AdvReac Other Verified 09/04/21 00:04 Inhibitor Family History Father Lung cancer Surgical History (Updated 09/04/21 @ 02:[address] Robin Sawant MD) Carotid stenosis, left History of carotid endarterectomy Hx of esophagogastroduodenoscopy Hx of eye surgery S/P appendectomy S/P colonoscopy Social History Smoking Status: Current every day smoker tobacco type: cigarettes second hand exposure: Yes alcohol intake: current substance use type: does not use caffeine: No what type of physical activity do you participate in: walking, running and weight training frequency: 3-4 times per week seatbelt use: always ROS ROS ED Constitutional Constitutional ED: Denies chills or fever(s) Eyes Eyes: Denies change in vision or diplopia ENT ENT ED: Denies rhinorrhea or sore throat Cardiovascular Cardiovascular: Denies chest pain or palpitations Respiratory/Chest Respiratory/Chest: Denies cough or dyspnea Gastrointestinal Gastrointestinal: Denies abdominal pain, diarrhea, nausea or vomiting Genitourinary Genitourinary ED: Denies dysuria or hematuria Musculoskeletal Musculoskeletal: Reports neck pain; Denies back pain Integumentary Denies abscess or rash Neurologic Neurologic: Denies headache(s), paresthesias or weakness Psychiatric Psychiatric: Denies anxiety or suicidal thoughts EXAM Physical Exam Const Vital Signs: 09/03/21 23:53 09/03/21 23:59 09/04/21 00:04 Temperature 97.9 F 97.5 F L Temperature Source Temporal Temporal Pulse Rate 79 82 Respiratory Rate 15 18 Respiratory Effort Normal Non-Labored Respiratory Pattern Normal Blood Pressure 163/82 H 155/88 H Blood Pressure Mean 109 110 Blood Pressure Source Blood Pressure Position Blood Pressure Location Pulse Ox 99 98 Oxygen Delivery Method Room Air Room Air 09/04/21 00:04 09/04/21 00:52 09/04/21 02:23 Temperature 9736 F H 97.6 F L 97.7 F L Temperature Source Temporal Temporal Oral Pulse Rate 77 77 93 Respiratory Rate 18 18 24 H Respiratory Effort Respiratory Pattern Blood Pressure 149/77 H 149/77 H 184/98 H Blood Pressure Mean 101 101 126 Blood Pressure Source Monitor Blood Pressure Position Semi-Fowlers Blood Pressure Location Right Arm Pulse Ox 95 95 97 Oxygen Delivery Method Room Air Room Air Room Air Positive well nourished and well developed Constitutional Narrative: Patient mentating well. General Appearance ED: well developed and NAD HEENT Reports moist mucous membranes normocephalic and atraumatic Eyes PERRL and EOMs intact bilaterally Neck Neck Narrative: Very swollen and firm right neck beneath surgical incision which has Steri- Strips on it and is without dehiscence, signs of infection, or bleeding/discharge. This area in its entirety is very tender. I hear no carotid bruits bilaterally. Resp normal respiratory effort and clear to auscultation bilaterally Cardio regular rate, regular rhythm and no murmurs GI non-tender and non-distended Auscultation: normoactive bowel sounds Palpation: soft Back/Spine no CVA tenderness General Back: other FROM Extremity normal to inspection General Extremety ED: Negative for edema, pulses abnormal or tenderness General Extremity: Negative for edema or pulses abnormal Neuro oriented x3, CN's II-XII intact bilaterally and no sensory deficits noted Neuro Narrative: Neurologically normal/symmetric Sensorium / Orientation: awake and alert Motor Exam: strength 5/5 throughout Skin no rashes or lesions noted and no wounds MDM MDM MDM Narrative Medical decision making narrative: Out of concern for the patient's carotid/surgery, after obtaining an IV and giving him analgesics we sent him directly to CT angiography before waiting for labs, which do show normal kidney function. Clinically, on multiple reevalua tions I do not see the hematoma expanding significantly, I did have nursing place ice on the affected area to try to minimize this. CT angiography read by radiology shows what appears to be active extravasation but not from the carotid vessels which appear to be intact. Dr. Bronson not on-call. I discussed with Dr. Castellanos, she states she does not do vascular and really cannot help. We checked with the hospital and they said that Dr. Conner was on-call for vascular so I called him, unfortunately states he is not on-call and is out of town and recommends calling Dr. Bronson directly which then we did. He came and evaluated the patient and the images, it is taken the patient to the operating room for further management. Just prior to this, checking on the patient again, he is not actively expanding although there is a large hematoma present and the patient's airway is intact and he is speaking without difficulty. Lab Data Attestation: I reviewed the patient's lab results. Labs: Laboratory Results - last 24 hr 09/04/21 09/04/21 09/04/21 00:15 00:15 00:15 WBC 10.1 RBC 5.01 Hgb 14.5 Hct 44.5 MCV 88.8 MCH 28.9 MCHC 32.6 RDW Std Deviation 45.1 H RDW Coeff of Og 14.0 Plt Count 318 MPV 9.1 Immature Gran % (Auto) 0.900 Neut % (Auto) 71.6 H Lymph % (Auto) 18.5 L [place] % (Auto) 5.8 Eos % (Auto) 2.3 Baso % (Auto) 0.9 Absolute Neuts (auto) 7.3 Absolute Lymphs (auto) 1.87 Nucleated RBC % 0 PT 12.4 INR 1.0 APTT 34.6 Sodium 139 Potassium 3.9 Chloride 106 Carbon Dioxide 24.0 Anion Gap 9 BUN 17 Creatinine 0.95 Estim Creat Clear Calc 74.41 Est GFR (MDRD) Af Amer 103 Est GFR (MDRD) Non-Af 85 BUN/Creatinine Ratio 17.9 Glucose 162 H Calcium 9.0 Radiography Diagnostic Testing: Clinical Impression(s) from Imaging Studies Neck CTA 09/04/21 00:02 IMPRESSION: 1. Heterogeneous collection in the right neck measuring up to 7.3 cm, likely represents hematoma with findings concerning for active extravasation. 2. No flow-limiting stenosis, aneurysm or dissection in the large vessels of the neck. Electronically Signed: Ced Griffith MD at 1:10 EDT , Critical Care Time Critical Care Time: Yes Critical care time (excluding procedures): 30-74 minutes (30 min), Including time spent:, Discussing w/Patient &/or Family/Electrical And Instrument Mechanic, Discussing w/Consultants, Arranging Admission or Transfer and Performing Direct Patient Care at Bedside Discharge Plan Triage Chief Complaint: Other, Pain/Inj ED Provider: Robin Sawant Dx/Rx/DC Orders Clinical Impression: Hematoma of neck, S/P carotid endarterectomy Prescriptions: No Action lisinopril 20 mg tablet 20 mg PO DAILY omega-3 fatty acids [Fish Oil Concentrate] 1,000 mg capsule 1,000 mg PO DAILY multivitamin Tablet 1 tab PO DAILY calcium cmb no.1-vit N5-U6-VF-B12 120 mg-1,000 unit-10 mg tablet 120-1,000-10 mg-unit-mg tablet 1 tab PO DAILY amlodipine 5 MG tablet 5 mg PO DAILY Label Comments: hypertension sucralfate [Carafate] 1 gram Tablet 1 g PO BID PRN (Reason: GI UPSET) aspirin 81 mg tablet,delayed release (DR/EC) 81 mg PO DAILY Qty: 360 0RF clopidogrel 75 mg tablet 75 mg PO DAILY Qty: 30 0RF Primary Care Provider: Valeriy Bobo Referrals: Valeriy Bobo MD [Primary Care Provider] - Disposition Disposition: Acute Care Hospital [facility]
[2021-09-04] MEDS: HYDROmorphone 1 MG/ML Syringe IV ×2 (01:02→02:46)
[2021-09-04] MEDS: Cefazolin 2 GM in 0.9% Normal Saline 100 ML IV (02:40)
--- NOTE | 2021-09-04 03:15 | PCM.HP.STD ---
HPI - General General Date of Admission: 09/04/21 Chief Complaint: Expanding painful right neck HPI Narrative EVANGEILNA CALHOUN, is a 61 M who presents with sudden onset last night 10:30 PM of pain in the right neck with sudden expansion. He presented to the emergency room. I was notified approximately 2:30 in the morning with concerns that a CTA of the neck which had been taken through the emergency room suggested a bleed within the right sternocleidomastoid muscle. I presented to examine the patient who appeared to have a swollen right neck. Neurologically had no complaints. I personally reviewed the images and I contacted the interpreting radiologist. He suggested that he had difficulties interpreting the films. He suggested that there was likely hematoma within the right sternocleidomastoid. There appeared to be a superficial blush within the right sternocleidomastoid but he could not identify a feeding vessel. He did not feel that this was correlating with the recent common carotid carotid bulb or internal carotid artery and that this was a separate area within the muscle. [facility] Medical History Alcohol use Benign essential hypertension Bruises easily Bruising Carotid arterial disease Chest pain Difficulty with CPAP use Heartburn HLD (hyperlipidemia) Leg cramps Migraine headache Prostate disease Sleep apnea Smoker Tobacco use disorder Home Medications amlodipine 5 mg tablet 5 mg PO DAILY HTN 08/22/15 [History Last Taken 08/29/21 05:00] calcium cmb no.1-vit O5-C4-TN-B12 120 mg-1,000 unit-10 mg tablet 1 tab PO DAILY SUPPLEMENT 06/30/19 [History Last Taken Unknown] lisinopril 20 mg tablet 20 mg PO DAILY HTN 06/30/19 [History Last Taken 08/29/21 05:00] multivitamin 1 tab PO DAILY SUPPLEMENT 06/30/19 [History Last Taken Unknown] omega-3 fatty acids 1,000 mg capsule (Fish Oil Concentrate) 1,000 mg PO DAILY SUPPLEMENT 06/30/19 [History Last Taken Unknown] sucralfate 1 gram tablet (Carafate) 1 g PO BID PRN GI UPSET 08/22/21 [History Last Taken Unknown] aspirin 81 mg tablet,delayed release 81 mg PO DAILY #360 tabs 08/30/21 [Rx Last Taken Unknown] clopidogrel 75 mg tablet 75 mg PO DAILY #30 tabs 08/30/21 [Rx Last Taken Unknown] Allergy/AdvReac Type Severity Reaction Status Date / Time doxycycline Allergy Rash Verified 09/04/21 00:04 prednisone Allergy Rash Verified 09/04/21 00:04 atorvastatin AdvReac Other Verified 09/04/21 00:04 Cyodazx-Diz-Ctt Reductase AdvReac Other Verified 09/04/21 00:04 Inhibitor [Uwjxsbu-KFF-KmH Reductase Inhibitor] Family History Father Lung cancer Surgical History (Updated 09/04/21 @ 02:[address] Robin Sawant MD) Carotid stenosis, left History of carotid endarterectomy Hx of esophagogastroduodenoscopy Hx of eye surgery S/P appendectomy S/P colonoscopy Social History Smoking Status: Current every day smoker tobacco type: cigarettes second hand exposure: Yes alcohol intake: current substance use type: does not use caffeine: No what type of physical activity do you participate in: walking, running and weight training frequency: 3-4 times per week seatbelt use: always ROS ROS Narrative Patient had acute onset of pain right neck with subsequent diaphoresis. Eyes Eyes: Reports systems reviewed and no addt'l complaints, except as documented ENT HEENT: Reports other Details: Acute right neck pain and swelling Respiratory/Chest Respiratory/Chest: Denies cough Neurologic Neurologic: Reports systems reviewed and no addt'l complaints, except as documented Vital Signs Vital Signs Vital Signs: 09/03/21 23:53 09/03/21 23:59 09/04/21 00:04 Temperature 97.9 F 97.5 F L Temperature Source Temporal Temporal Pulse Rate 79 82 Respiratory Rate 15 18 Respiratory Effort Normal Non-Labored Respiratory Pattern Normal Blood Pressure 163/82 H 155/88 H Blood Pressure Mean 109 110 Blood Pressure Source Blood Pressure Position Blood Pressure Location Pulse Ox 99 98 Oxygen Delivery Method Room Air Room Air 09/04/21 00:04 09/04/21 00:52 09/04/21 02:23 Temperature 9736 F H 97.6 F L 97.7 F L Temperature Source Temporal Temporal Oral Pulse Rate 77 77 93 Respiratory Rate 18 18 24 H Respiratory Effort Respiratory Pattern Blood Pressure 149/77 H 149/77 H 184/98 H Blood Pressure Mean 101 101 126 Blood Pressure Source Monitor Blood Pressure Position Semi-Fowlers Blood Pressure Location Right Arm Pulse Ox 95 95 97 Oxygen Delivery Method Room Air Room Air Room Air 09/04/21 02:58 Temperature 97.7 F L Temperature Source Oral Pulse Rate 93 Respiratory Rate 24 H Respiratory Effort Respiratory Pattern Blood Pressure 184/98 H Blood Pressure Mean 126 Blood Pressure Source Blood Pressure Position Blood Pressure Location Pulse Ox 97 Oxygen Delivery Method Weight Weight: 180 lb 1.883 oz Body Mass Index (BMI) 28.2 Physical Exam Const alert and oriented x3 General Appearance: cooperative Orientation / Consciousness: awake, oriented to person and oriented to place HEENT HEENT Narrative: Marked swelling of the right neck, no bleeding from the incision which is very clean dry and intact Eyes PERRL General Eye: normal appearance of both eyes Alignment: alignment normal Pupil: PERRL Neck Neck Narrative: Markedly swollen right neck, tender Resp normal respiratory effort Auscultation: clear to auscultation bilaterally Cardio regular rate and regular rhythm Rate: regular rate Rhythm: regular rhythm Extremity normal to inspection Neuro oriented x3, CN's II-XII intact bilaterally, moves all extremities and no focal motor deficits Results Lab / Micro Data Result Diagrams: 09/04/21 00:15 09/04/21 00:15 Labs: Laboratory Results - last 24 hr 09/04/21 00:15: WBC 10.1, RBC 5.01, Hgb 14.5, Hct 44.5, MCV 88.8, MCH 28.9, MCHC 32.6, RDW Std Deviation 45.1 H, RDW Coeff of Og 14.0, Plt Count 318, MPV 9.1, Immature Gran % (Auto) 0.900, Neut % (Auto) 71.6 H, Lymph % (Auto) 18.5 L, [place] % (Auto) 5.8, Eos % (Auto) 2.3, Baso % (Auto) 0.9, Absolute Neuts (auto) 7.3, Absolute Lymphs (auto) 1.87, Nucleated RBC % 0 09/04/21 00:15: PT 12.4, INR 1.0, APTT 34.6 09/04/21 00:15: Sodium 139, Potassium 3.9, Chloride 106, Carbon Dioxide 24.0, Anion Gap 9, BUN 17, Creatinine 0.95, Estim Creat Clear Calc 74.41, Est GFR (MDRD) Af Amer 103, Est GFR (MDRD) Non-Af 85, BUN/Creatinine Ratio 17.9, Glucose 162 H, Calcium 9.0 Radiology Impression Neck CTA 09/04/21 00:02 IMPRESSION: 1. Heterogeneous collection in the right neck measuring up to 7.3 cm, likely represents hematoma with findings concerning for active extravasation. 2. No flow-limiting stenosis, aneurysm or dissection in the large vessels of the neck. Electronically Signed: Ced Griffith MD at 1:10 EDT , Assessment & Plan Assessment/Plan (1) Hematoma of neck: PLAN: Acute postoperative right sternocleidomastoid hematoma. Because of the deviation of the neck and size of the hematoma I recommend urgent exploration. A feeding vessel cannot be identified per radiology. The patient is aware of the technique, benefit, risk and alternatives. We will proceed directly to the operating room. Dictation of this history and physical was delayed secondary to delayed patient registration Blane Bronson M.D., F.A.C.S.
--- NOTE | 2021-09-04 04:27 | PCM.OPRPT ---
Report of Operation Date of Procedure: 09/04/21 Pre-Operative Diagnosis: Right neck hematoma Post-Operative Diagnosis: Right neck hematoma suspected medication related Surgery/Procedure Performed:: Right neck exploration with evacuation of right neck hematoma Description of Surgical Findings:: Timeout informed consent was obtained. 61-year-old gentleman was urgently taken to the operating room. He had had a right carotid endarterectomy on August 30, 2021 and he presented to the emergency room with acute onset of right neck swelling and pain. The emergency room physician had gotten a CTA of the neck suggesting a right sternocleidomastoid hematoma. He was taken to the operating placed on the table underwent general endotracheal intubation anesthesia. Left tracheal deviation noted by Dr. Adorno. Patient received 2 g of Ancef. The right neck was sterilely prepped and draped. The previous right neck incision was very carefully reopened. Upon dissecting down through the subdermal stitching hematoma under pressure was encountered. This was slowly and carefully evacuated and clearly was not a sternocleidomastoid hematoma and not related to a bleed within the sternocleidomastoid. It tracked down to the carotid artery but the patch angioplasty was absolutely intact with absolutely no evidence of suture line leak. Over the next 45 minutes or so the neck wound was inspected no definitive source of bleeding identified. A few superficial areas treated with cautery a couple areas were secured with a 3-0 Vicryl suture but there was no pulsatile bleeding vessel. Clearly nothing within the sternocleidomastoid. My impression was that this was a medication related bleed with the aspirin and fish oil and clopidogrel aggravated by the increased pressure caused by the size differential between the common carotid carotid bulb and in the internal carotid. But again the patch angioplasty in particular the internal carotid was inspected there was no thrombus at the internal carotid site in fact there was already healing over the patch angioplasty. I placed Floseal and fibula are. Close the platysma with a running 3-0 Vicryl and closed the skin with a running subdermal 5-0 Vicryl. Very incision was now sized with 20 cc of 0.5% Marcaine. Steri-Strips Telfa tape dressings applied. Sponge and instrument and needle counts were reported to the surgeon to be correct. New blood loss was very minimal. Thrombus approximately 100 cc. He was taken to the recovery room in satisfactory addition no apparent complication. I have spoken to Dr. Nickie Rios who will assist with postoperative hypertension management. I anticipate holding all of the patient's anticoagulants including the fish oil that he takes. Blane Bronson M.D., F.A.C.S. Surgeon: Blane Bronson Type of Anesthesia: General and Local Anesthesiologist: Ramez Pettit
--- NOTE | 2021-09-04 04:32 | PCM.CONS.GEN ---
Assessment & Plan Assessment/Plan (1) Hematoma of neck: PLAN: Plan The patient is a 61 y/o M w/ PMHx: Carotid disease, HTN, HLD, MELODY with difficulty with CPAP usage, Tobacco use, BPH, PAOD, GERD who presents to the [facility] ED 09/04/21 with history of R CEA by Dr. 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 #1. Acute postoperative right sternocleidomastoid hematoma with postoperative hypotension, previously hypertensive suspect likely secondary to pain on #3: s/p recent R CEA, CTA neck with heterogeneous collection in the right neck measuring up to 7.3 cm likely sales support representative of a hematoma with findings concerning for active extravasation, admitted per Dr. Bronson, transitioned to the OR for evaluation, planned hold on asa, plavix, fish oil per discussion with Dr. Bronson. In the PACU patient blood pressure trended downward therefore have requested at this time 1 L normal saline bolus and a stat H&H. Dr. Bronson has been updated. Discussed with PACU staff and we will continue to monitor as patient may require transition from PACU to ICU if continued hypotension. #2. PAOD: Patient status post recent intervention given acute presentation #1, defer reinitiation of aspirin and Plavix to primary service, continue lisinopril regimen, per current list not on statin therapy with noted allergy. #3. Hypertension: Continue home regimen including lisinopril, amlodipine with hold parameters as needed, PRN hydralazine. #4. Hyperlipidemia: Noted statin intolerance. #5. MELODY: Unable to tolerate CPAP nightly. #6. Tobacco Abuse: Encouraged cessation, inpatient consultation per RT, NR if desired. #7. GERD: We will continue patient home as needed sucralfate. #8. DVT prophylaxis: SCDs, defer chemoprophylaxis given acute presentation with recent procedures noted. HPI Consult Data Date of Consult: 09/04/21 HPI Narrative Reason for Consultation: Medical consultation, BP aggressive treatment given acute presentation. HPI Narrative: The patient is a 61 y/o M w/ PMHx: Carotid disease, HTN, HLD, MELODY with difficulty with CPAP usage, Tobacco use, BPH, PAOD, GERD who presents to the [facility] ED 09/04/21 with history of R CEA by Dr. 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 He noted the pain was severe, constant, 10 out of 10 in severity and currently following OR he notes pain 1-2 out of 10 and significantly improved since intervention. Work-up in the ED included T97.9, heart rate 79, BP 163/82, respiratory rate 15, 99% on room air, CBC with WC 10.1, hemoglobin 14.5, platelets 318 without marked shift, unremarkable coags, BMP with glucose 162 otherwise unremarkable, CTA of the neck with heterogeneous collection in the right neck measuring up to 7.3 cm likely sales support representative of a hematoma with findings concerning for active extravasation. Patient was admitted per Dr. Bronson. In the PACU upon evaluation patient is having pressure held to the right side of his neck. From discussion with PACU staff he did get 10 mg of IV hydralazine in the OR secondary to elevated blood pressures at that time. Currently blood pressures are trending down therefore discussed with PACU staff and requested stat H&H and 1 L normal saline bolus. [facility] Medical History Alcohol use Benign essential hypertension Bruises easily Bruising Carotid arterial disease Chest pain Difficulty with CPAP use Heartburn HLD (hyperlipidemia) Leg cramps Migraine headache Prostate disease Sleep apnea Smoker Tobacco use disorder Home Medications amlodipine 5 mg tablet 5 mg PO DAILY HTN 08/22/15 [History Last Taken 08/29/21 05:00] calcium cmb no.1-vit Q9-J3-AL-B12 120 mg-1,000 unit-10 mg tablet 1 tab PO DAILY SUPPLEMENT 06/30/19 [History Last Taken Unknown] lisinopril 20 mg tablet 20 mg PO DAILY HTN 06/30/19 [History Last Taken 08/29/21 05:00] multivitamin 1 tab PO DAILY SUPPLEMENT 06/30/19 [History Last Taken Unknown] omega-3 fatty acids 1,000 mg capsule (Fish Oil Concentrate) 1,000 mg PO DAILY SUPPLEMENT 06/30/19 [History Last Taken Unknown] sucralfate 1 gram tablet (Carafate) 1 g PO BID PRN GI UPSET 08/22/21 [History Last Taken Unknown] aspirin 81 mg tablet,delayed release 81 mg PO DAILY #360 tabs 08/30/21 [Rx Last Taken Unknown] clopidogrel 75 mg tablet 75 mg PO DAILY #30 tabs 08/30/21 [Rx Last Taken Unknown] Allergy/AdvReac Type Severity Reaction Status Date / Time doxycycline Allergy Rash Verified 09/04/21 00:04 prednisone Allergy Rash Verified 09/04/21 00:04 atorvastatin AdvReac Other Verified 09/04/21 00:04 [id number]-VgF Reductase AdvReac Other Verified 09/04/21 00:04 Inhibitor Family History Father Lung cancer Surgical History (Updated 09/04/21 @ 02:[address] Robin Sawant MD) Carotid stenosis, left History of carotid endarterectomy Hx of esophagogastroduodenoscopy Hx of eye surgery S/P appendectomy S/P colonoscopy Social History Smoking Status: Current every day smoker tobacco type: cigarettes second hand exposure: Yes alcohol intake: current substance use type: does not use caffeine: No what type of physical activity do you participate in: walking, running and weight training frequency: 3-4 times per week seatbelt use: always ROS ROS Narrative Admission Review of Systems: CONSTITUTIONAL: No weight loss, fever, chills, + weakness or fatigue. HEENT: + Right-sided neck enlargement, pain, recent CEA. Eyes: No visual loss, blurred vision, double vision or yellow sclerae. Ears, Nose, Throat: No hearing loss, sneezing, congestion, runny nose or sore throat. SKIN: No rash or itching, lesions, wounds. CARDIOVASCULAR: No chest pain, chest pressure or chest discomfort, palpitations, edema, orthopnea, syncopal events. RESPIRATORY: No shortness of breath, cough or sputum, wheezing, hemoptysis. GASTROINTESTINAL: No anorexia, nausea, vomiting or diarrhea, abdominal pain, melena, BRBPR. GENITOURINARY: No dysuria, frequency, urgency or retention. NEUROLOGICAL: No headache, dizziness, syncope, paralysis, ataxia, numbness or tingling in the extremities, focal weakness, change in bowel or bladder control, seizure. MUSCULOSKELETAL: + muscle, back pain, joint pain or stiffness. HEMATOLOGIC: + anemia, bleeding or bruising. LYMPHATICS: No enlarged nodes. No history of splenectomy. PSYCHIATRIC: No history of depression or anxiety. ENDOCRINOLOGIC: No reports of sweating, cold or heat intolerance. No polyuria or polydipsia. ALLERGIES: No history of asthma, hives, eczema or rhinitis. Physical Exam Narrative Physical Examination: General: Awake, alert, oriented x 3 and cooperative, seated upright in the PACU bed, pressure being held to the right neck by staff. Skin: Normal color, normal turgor, no icterus, no cyanosis except recent OR with dressing in place to right neck with staff holding pressure currently. HEENT: AT/NC, EOMI, PERRLA, mildly dry MM, no obvious left-sided carotid bruit or JVD, right neck with dressing in place with pressure currently being held by staff, obvious mild right neck swelling although patient reports that this is improved. Lungs: Mildly diminished, greater bases, appropriate effort, no rales, ronchi or wheezing. Heart: Regular rate and rhythm; no gallop, rub audible. Abdomen: Soft, overweight, NTTP, ND, normal BS, no HSM. Extremities: No cyanosis, clubbing, or edema. Neurological: Patient awake, alert, oriented as noted, cognitive function intact; pupils equally reactive to light and accommodation, cranial nerves II-XII grossly normal, moving all 4 extremities, no focal deficits, strength moderately global decrease given recent intervention. Psychiatric: Affect appears fatigued otherwise notes feeling significantly improved, no acute evidence of depressive or anxiety feelings. Lab / Micro Data Result Diagrams: 09/04/21 00:15 09/04/21 00:15 Labs: Laboratory Results - last 24 hr 09/04/21 00:15: WBC 10.1, RBC 5.01, Hgb 14.5, Hct 44.5, MCV 88.8, MCH 28.9, MCHC 32.6, RDW Std Deviation 45.1 H, RDW Coeff of Og 14.0, Plt Count 318, MPV 9.1, Immature Gran % (Auto) 0.900, Neut % (Auto) 71.6 H, Lymph % (Auto) 18.5 L, [place] % (Auto) 5.8, Eos % (Auto) 2.3, Baso % (Auto) 0.9, Absolute Neuts (auto) 7.3, Absolute Lymphs (auto) 1.87, Nucleated RBC % 0 09/04/21 00:15: PT 12.4, INR 1.0, APTT 34.6 09/04/21 00:15: Sodium 139, Potassium 3.9, Chloride 106, Carbon Dioxide 24.0, Anion Gap 9, BUN 17, Creatinine 0.95, Estim Creat Clear Calc 74.41, Est GFR (MDRD) Af Amer 103, Est GFR (MDRD) Non-Af 85, BUN/Creatinine Ratio 17.9, Glucose 162 H, Calcium 9.0 Radiology Impression Neck CTA 09/04/21 00:02 IMPRESSION: 1. Heterogeneous collection in the right neck measuring up to 7.3 cm, likely represents hematoma with findings concerning for active extravasation. 2. No flow-limiting stenosis, aneurysm or dissection in the large vessels of the neck. Electronically Signed: Ced Griffith MD at 1:10 EDT , Charges/Coding Visit Charges Office Visits / Consults: 40037 IP Consult L4
--- NOTE | 2021-09-04 04:36 | DCINST_ITS ---
Discharge Instructions Diet Discharge Diet: Light diet - advance as tolerated Activity Discharge Activity: May Not Drive (For 5 to 7 days), May Not Shower (For 3 days) and May Take a Tub Bath Weight Bearing Status: Full weight bearing Dressing / Incision Call your doctor if your incision/area has: Continuous Slow Oozing, Sudden Increased Bleeding and Increased Pain/ Swelling Call your doctor if you observe: Fever of 101 or Higher Suture Line Care: Avoid Pulling/Pushing Change Dressing in: 1 day (You may apply a dry gauze cover dressing to your incision as needed to protect from clothing irritation. Change as needed) Remove Dressing in: 1 week (Leave your Steri-Strips in place for 1 week then you may remove) Additional Dressing/Incision Instructions:: Leave your dressing intact today and tomorrow. You may remove your dressing on September 07, 2021. Leave the Steri-Strips in place for an additional 1 week As much as possible please remain upright. You may apply ice at least 3 times daily to the right neck to limit discomfort and to limit swelling. Please keep the dressing clean and dry. As I have instructed you to cut the sidebar of the urinary catheter early on the morning of September 07, 2021. Remove the catheter. Notify my office if you have any difficulties urinating. Follow Up Care Please Follow Up With: Blane Bronson MD When: Please call [phone] to arrange for an appointment. Please convert your appointment from September 09 to September 12, 2021. Test Results: Test results from this visit will be discussed in further detail at your follow- up appointment, if applicable. Discharge Plan Admission Admit Date/Time: 09/04/21 04:21 Primary Reason for Your Visit: Right neck hematoma Attending Provider: Blane Bronson Primary Care Provider: Valeriy Bobo Consulting Providers: Suresh Oh ; Nickie Rios ; Tim Moncada Discharge Orders/Prescriptions Prescriptions: New tamsulosin 0.4 mg Capsule 0.8 mg PO DAILY 10 Days Qty: 10 0RF Continued lisinopril 20 mg tablet 20 mg PO DAILY multivitamin Tablet 1 tab PO DAILY calcium cmb no.1-vit B1-P4-FX-B12 120 mg-1,000 unit-10 mg tablet 120-1,000-10 mg-unit-mg tablet 1 tab PO DAILY amlodipine 5 MG tablet 5 mg PO DAILY Label Comments: hypertension sucralfate [Carafate] 1 gram Tablet 1 g PO BID PRN (Reason: GI UPSET) Held aspirin 81 mg tablet,delayed release (DR/EC) 81 mg PO DAILY Qty: 360 0RF Hold Instructions: Resume on 09/13/21. Discontinued omega-3 fatty acids [Fish Oil Concentrate] 1,000 mg capsule 1,000 mg PO DAILY clopidogrel 75 mg tablet 75 mg PO DAILY Qty: 30 0RF Referrals / Follow Up: Valeriy Bobo MD [Primary Care Provider] - Disposition Disposition (needs filled in before D/C Order can be placed): Home, Self Care
[2021-09-04] MEDS: 0.9% Normal Saline 1,000 ML 15 ML IV (05:12)
[2021-09-04] MEDS: 0.9% Normal Saline 1,000 ML 999 ML IV (05:37)
[2021-09-04 05:51] LABS: Hematocrit 40.4 % (40-54)
[2021-09-04 07:57] LABS: Hemoglobin A1c 5.4 % (3.8-5.6)
[2021-09-04] MEDS: Bupivacaine Mpf 0.5% 30 ML VIAL (08:35)
[2021-09-04] MEDS: Lidocaine Jelly 2% 20 ML Syringe (URO-JET) 1 APPLIC TOPICAL ×2 (09:29→14:00)
[2021-09-04] MEDS: Lisinopril 20 MG Tablet PO (09:41)
[2021-09-04] MEDS: amLODIPine 5 MG Tablet PO (09:41)
--- NOTE | 2021-09-04 10:39 | PCM.HOSP.N ---
Hospitalist Note Patient was seen and examined briefly today, he has had some urinary retention and he had to have a straight cath performed today with return in about 1000 cc of urine. Patient was placed on Flomax by surgery. Patient's blood pressure remained stable at this time.
[2021-09-04] MEDS: Tamsulosin HCl 0.4 MG Capsule PO ×2 (10:40→16:46)
[2021-09-04] MEDS: Cefazolin 1 GM/50 ML BAG IV ×2 (14:22→20:53)
[2021-09-04] MEDS: 0.9% Saline Lock 10 ML Syringe IV (20:54)
[2021-09-05 00:04] VITALS: BP 107/69; PULSE 87; RESP 18; TEMP 36.8; O2SAT 95
[2021-09-05] MEDS: Acetaminophen 325 MG Tablet PO (02:00)
[2021-09-05 03:16] VITALS: PULSE 75
[2021-09-05 04:00] VITALS: BP 109/61; PULSE 69; RESP 18; TEMP 36.7; O2SAT 95
[2021-09-05 06:39] VITALS: PULSE 74
--- NOTE | 2021-09-05 07:10 | PN.SURG_ITS ---
Subjective Subjective Patient is currently doing well. No complaints. He required straight caths x3 yesterday and then a Mary was left in place. He was initiated on Flomax yesterday. Objective Data Objective Data Vital Signs: Vital Signs Temp Pulse Resp BP Pulse Ox O2 Del Method O2 Flow Rate 98.1 F 74 18 109/61 95 Room Air 2 09/05/21 04:00 09/05/21 06:39 09/05/21 04:00 09/05/21 04:00 09/05/21 04:00 09/05/21 04:20 09/04/21 06:24 Oxygen Flow Rate (L/min) 2 Oxygen Delivery Method Room Air Weight: 175 lb Body Mass Index (BMI) 27.3 Intake & Output: Intake and Output for Last 24 Hours 09/03/21 09/04/21 09/05/21 23:59 23:59 23:59 Intake Total 4046 / 4046 Output Total 5850 / 5850 250 / 250 Balance -1804 / -1804 -250 / -250 Lab / Micro Data Result Diagrams: 09/04/21 05:40 09/04/21 00:15 Labs: Laboratory Results - last 24 hr 09/04/21 05:40: Hemoglobin A1c 5.4 Physical Exam Narrative Right neck has appropriate moderate induration. It is soft to palpation. Dressings are clean and dry. Nontender. Const oriented x3 and no apparent distress Resp normal respiratory effort Assessment & Plan Assessment/Plan (1) Postoperative hematoma: (2) Acute urinary retention: PLAN: Plan Patient appears stable status post postoperative hematoma right carotid enterect bhavik. No source of bleeding was identified. The patch angioplasty appeared to be completely intact and did not appear to be the focus of the bleed. I suspect a medical bleed related to his aspirin and clopidogrel and fish oil therapy. He has been asked to hold these until his office follow-up. Acute urinary retention treated with Mary catheter. He will go home with a catheter in and has instructions to remove it on Sunday morning. He will notify my office of any difficulties. Anticipate discharge today pending medical review. Blane Bronson M.D., F.A.C.S.
[2021-09-05 07:40] VITALS: BP 135/70; PULSE 72; RESP 18; TEMP 36.6; O2SAT 94
[2021-09-05 09:27] VITALS: BP 116/55; PULSE 73; RESP 18; TEMP 36.7; O2SAT 98
[2021-09-05] MEDS: Polyethylene Glycol 3350 17 GM PACKET PO ×2 (09:29)
[2021-09-05] MEDS: amLODIPine 5 MG Tablet PO (09:29)
[2021-09-05] MEDS: Lisinopril 20 MG Tablet PO (09:30)
--- NOTE | 2021-09-05 12:36 | PCM.PN.HOSP ---
Subjective Subjective Doing well, no issues overnight. Mary is draining and he was started on Flomax Objective Data Objective Data Vital Signs: Vital Signs Temp Pulse Resp BP Pulse Ox O2 Del Method O2 Flow Rate 98.0 F 73 18 116/55 L 98 Room Air 2 09/05/21 09:27 09/05/21 09:27 09/05/21 09:27 09/05/21 09:27 09/05/21 09:27 09/05/21 09:27 09/04/21 06:24 Oxygen Flow Rate (L/min) 2 Oxygen Delivery Method Room Air Weight: 175 lb Body Mass Index (BMI) 27.3 Intake & Output: Intake and Output for Last 24 Hours 09/04/21 09/05/21 09/06/21 03:59 03:59 03:59 Intake Total 500 / 500 3546 / 3546 Output Total 5850 / 5850 250 / 250 Balance 500 / 500 -2304 / -2304 -250 / -250 Lab / Micro Data Result Diagrams: 09/04/21 05:40 09/04/21 00:15 Physical Exam Const alert, oriented x3 and no apparent distress General Appearance: cooperative HEENT normocephalic and moist oral mucous membranes Eyes PERRL, EOMs intact bilaterally and conjunctivae normal Neck supple and no JVD Neck Narrative: Right neck incision with dressing intact Resp normal respiratory effort, no retractions, no use of accessory muscles and clear to auscultation bilaterally Auscultation: Negative for crackles, rales, rhonchi or wheezes Cardio regular rate, regular rhythm, S1 normal heart sound, S2 normal heart sound and no murmurs GI soft to palpation, non-tender and non-distended; Negative for hepatosplenomegaly Extremity no clubbing, cyanosis or edema Skin no rashes or lesions noted Neuro no focal motor deficits and no sensory deficits noted Psych affect normal Appearance: appropriate Assessment & Plan Assessment/Plan (1) Hematoma of neck: PLAN: Plan 1. Right neck hematoma status post repair on 09/04/2021 after a right carotid endarterectomy 08/29/2021 ? Blood pressure is stable ? Can resume his home blood pressure medications ? Hemoglobin remained stable ? Stable for discharge 2. Urinary retention ? Has a Mary in place ? Continue with Flomax ? Plan to have him follow-up as an outpatient for Mary removal and if this reoccurs then will need a Mary for longer and follow-up with urology Charges/Coding Visit Charges OBSV E&M: 62460 Subsequent observation care L2
--- NOTE | 2021-09-05 12:53 | NURSING ---
This RN changed pt's pascual cath to leg bag and provided education.
== END 2021-09-05 07:21 | disposition home or self-care (01) ==
LOC: ED 09-04 02:37 → SDC 09-04 03:08 → AC 09-04 03:20 → SDC 09-04 06:21 → PCU 09-04 06:21
PROVIDERS: Emergency Medicine; Family Medicine; Admitting Provider Surgery; Emergency Provider Emergency Medicine; PCP Family Medicine; Visit Provider Surgery
PROC: (CPT 35301; principal; 2021-09-04 03:00)
DX: I97.638 Postprocedural hematoma of a circulatory system organ or structure following other circulatory system procedure (principal); R33.9 Retention of urine, unspecified; K21.9 Gastro-esophageal reflux disease without esophagitis; I10 Essential (primary) hypertension; E78.5 Hyperlipidemia, unspecified; N40.1 Benign prostatic hyperplasia with lower urinary tract symptoms; Z79.899 Other long term (current) drug therapy; Z79.02 Long term (current) use of antithrombotics/antiplatelets; Z79.82 Long term (current) use of aspirin; F17.210 Nicotine dependence, cigarettes, uncomplicated; Y84.9 Medical procedure, unspecified as the cause of abnormal reaction of the patient, or of later complication, without mention of misadventure at the time of the procedure; G47.33 Obstructive sleep apnea (adult) (pediatric); R33.8 Other retention of urine
CPT/HCPCS: 21501; 70498; 80048; 83036; 85014; 85018; 85025; 85610; 85730; 96361; 96365; 96366; 96375; 96376; 99218; 99284; 99406; J7030; J7040; J7120; Q9967; A4216; G0378; J2405

== ENCOUNTER → 2021-10-03 | Outpatient (CLI) | payer OTHER, SELFPAY ==
--- NOTE | 2021-10-03 13:46 | CDU_ITS ---
Reason For Study: carotid stenosis Rt. Velocities/BP Lt. Velocities/BP Prox CCA 118.9/19.9 cm/sec. Prox CCA 126.6/20.6 cm/sec. Mid CCA 122.8/19.9 cm/sec. Mid CCA 107.2/23.7 cm/sec. Dist CCA 95.5/17.3 cm/sec. Dist CCA 113.4/20.0 cm/sec. Prox ICA 67.9/17.6 cm/sec. Prox ICA 54.2/11.3 cm/sec. Mid ICA 70.0/21.3 cm/sec. Mid ICA 77.2/22.3 cm/sec. Dist ICA 87.6/23.7 cm/sec. Dist ICA 86.0/31.1 cm/sec. Rt. ICA/CCA = .7. Lt. ICA/CCA = .8. Prox ECA 130.2/9.7 cm/sec. Prox ECA 121.1/13.3 cm/sec. Rt. Vert. 63.0/11.4 cm/sec. Lt. Vert. 65.2/16.8 cm/sec. Right Extracranial There is homogeneous, smooth atherosclerotic plaque noted in the right common carotid artery. There is intimal thickening but no significant atherosclerotic plaque noted in the right internal carotid artery. The right internal carotid artery is very tortuous. There is homogeneous, smooth atherosclerotic plaque noted in the right external carotid artery. Antegrade flow is noted in the right vertebral artery. Possible old hematoma measuring 1.29 x 2.4 cm. Left Extracranial There is heterogeneous, irregular atherosclerotic plaque noted in the left common carotid artery. There is heterogeneous, irregular atherosclerotic plaque noted in the left internal carotid artery. There is heterogeneous, irregular atherosclerotic plaque noted in the left external carotid artery. Antegrade flow is noted in the left vertebral artery. Procedure Carotid Duplex [id number]. This is a Carotid Duplex examination using B-mode, color flow and specral Doppler. The exam was diagnostic. Exam performed in department. VL/Carotid Duplex Ultrasound Interpretation Summary Intimal thickening of the right internal carotid artery with significant tortuo sity but less than 50% stenosis. Postoperative changes noted. 1.29 x 2.4 cm structure superficial to the carotid consistent with a hematoma noted. No vascular flow identified. Less than 50% stenosis right external carotid artery Postoperative changes of the left internal carotid with less than 50% stenosis Less than 50% stenosis left external carotid Patent and antegrade vertebrals bilaterally Ordering Physician: Blane Bronson Performed By: Valentino Durham RVT
== END | disposition home or self-care (01) ==
LOC: CVS 13:46
PROVIDERS: PCP Family Medicine; Referring Provider Surgery; Visit Provider Surgery
DX: I65.23 Occlusion and stenosis of bilateral carotid arteries (principal); Z98.890 Other specified postprocedural states
CPT/HCPCS: 93880

== ENCOUNTER → 2021-12-07 | Outpatient (CLI) | payer OTHER, SELFPAY ==
--- NOTE | 2021-12-07 09:59 | CDU_ITS ---
Reason For Study: H/O HEMATOMA & discomfort Rt. Velocities/BP Lt. Velocities/BP Prox CCA 111.3/22.3 cm/sec. Prox CCA 144.1/25.4 cm/sec. Mid CCA 110.2/20.1 cm/sec. Mid CCA 111.2/25.4 cm/sec. Dist CCA 103.6/16.8 cm/sec. Dist CCA 147.8/29.0 cm/sec. Prox ICA 133.2/23.6 cm/sec. Prox ICA 191.5/41.2 cm/sec. Mid ICA 165.5/35.8 cm/sec. Mid ICA 80.9/18.3 cm/sec. Dist ICA 84.4/24.1 cm/sec. Dist ICA 62.5/24.4 cm/sec. Rt. ICA/CCA = 165.5/110.2=1.50. Lt. ICA/CCA = 191.5/111.2=1.72. Prox ECA 247.0/11.1 cm/sec. Prox ECA 190.8/10.8 cm/sec. Rt. Vert. 64.1/8.4 cm/sec. Lt. Vert. 78.5/25.7 cm/sec. Right Extracranial There is homogeneous, smooth atherosclerotic plaque noted in the right common carotid artery. There is heterogeneous, irregular atherosclerotic plaque noted in the right internal carotid artery. There is homogeneous, smooth atherosclerotic plaque noted in the right external carotid artery. Antegrade flow is noted in the right vertebral artery. Left Extracranial There is homogeneous, smooth atherosclerotic plaque noted in the left common carotid artery. There is homogeneous, irregular atherosclerotic plaque noted in the left internal carotid artery. There is homogeneous, smooth atherosclerotic plaque noted in the left external carotid artery. Antegrade flow is noted in the left vertebral artery. Procedure Carotid Duplex [id number]. This is a Carotid Duplex examination using B-mode, color flow and specral Doppler. Exam performed in department. VL/Carotid Duplex Ultrasound Interpretation Summary Minimal plaque noted within the right internal carotid artery with tortuosity n oted and increased velocities likely secondary to this. By velocity 50 to 69% stenosis but likely an overestimation secondary to the size mismatch from the carotid bulb to the internal carotid ar omer. Greater than 50% stenosis right external carotid artery Postoperative changes of the left carotid bulb with irregular plaque noted and 50 to 69% stenosis of the proximal left internal carotid artery Less than 50% stenosis left external carotid artery Patent and antegrade vertebral arteries bilaterally Compared to the recent study of October 03, 2021 there appears to be increased ve locities in bilateral internal carotid arteries as compared to the previous study. Clinical correlati on would be appropriate. Ordering Physician: Blane Bronson Referring Physician: Kenia Morrison Performed By: Jessica Wills, RDDEMETRI, RVT
== END | disposition home or self-care (01) ==
LOC: CVS 09:58
PROVIDERS: PCP Internal Medicine; Referring Provider Surgery; Visit Provider Surgery
DX: I65.23 Occlusion and stenosis of bilateral carotid arteries (principal)
CPT/HCPCS: 93880

== ENCOUNTER 2022-03-02 06:16 | Day surgery (SDC) | payer OTHER, SELFPAY ==
[2022-03-01 07:04] VITALS: BMI 29.7
[2022-03-01 09:25] LABS: Absolute Neutrophil Count 6.8 X10^3/uL (2.0-7.7); Basophil# 0.15 X10^3/uL; Basophil% 1.5 % (0-1); Eosinophil# 0.69 X10^3/uL; Eosinophils% 7.1 % (0-5); Hemoglobin 16.2 g/dL (13.0-16.5); Lymphocyte % 16.5 % (19-41); Mean Corp Hgb Conc 33.1 g/dL (32-36); Mean Corpuscular Hgb 28.4 pg (27.0-32.0); Mean Platelet Vol. 9.1 fl (6.2-12.0); Monocyte# 0.48 X10^3/uL; Monocyte% 4.9 % (0-10); NRBC Flagged by Analyzer 0 % (0-5); Neutrophil # 6.75 X10^3/uL (2.7-7.7); Neutrophil % 69.6 % (47-70); Platelet Count 253 K/mm3 (150-450); RBC Distribution Width CV 14.9 % (11.6-14.6); White Blood Count 9.7 K/mm3 (4.4-11.0)
[2022-03-01 09:37] LABS: Anion Gap 4 (5-15); BUN 16 mg/dL (7-18); Calcium,Total 9.3 mg/dL (8.5-10.1); Chloride 105 mmol/L (98-107); Creatinine, Serum 0.84 mg/dL (0.70-1.30); EST Glomerular Filtration Rate 98 mL/min (>60); Est Glom Filt Rate - Afr Amer 118 mL/min (>60); Estimated Creatinine Clearance 84.16 ml/min; Glucose 103 mg/dL (74-106); Potassium 4.6 mmol/L (3.5-5.1); Sodium Level 136 mmol/L (136-145)
--- NOTE | 2022-03-02 06:37 | HP.PCM_ITS ---
History and Physical Date of Admission: 03/02/22 Chief Complaint: Update H&P [employer] Freight Required: No Is patient in pain?: No Allergies doxycycline Allergy (Verified 03/01/22 08:41) Rashprednisone Allergy (Verified 03/01/22 08:41) Rashatorvastatin Adverse Reaction (Verified 03/01/22 08:41) [id number] Reductase Inhibitor Adverse Reaction (Verified 03/01/22 08:41) Other Medications calcium cmb no.1-vit [id number]-B12 120 mg-1,000 unit-10 mg tablet 1 tab PO DAILY SUPPLEMENT 06/30/19 [History Confirmed 03/01/22] multivitamin 1 tab PO DAILY SUPPLEMENT 06/30/19 [History Confirmed 03/01/22] sucralfate 1 gram tablet (Carafate) 1 g PO BID PRN GI UPSET 08/22/21 [History Confirmed 03/01/22] aspirin 81 mg tablet,delayed release 81 mg PO DAILY #360 tabs 08/30/21 [Rx Confirmed 03/01/22] tamsulosin 0.4 mg capsule 0.4 mg PO DAILY #90 caps 10/06/21 [Rx Confirmed 03/01/22] ascorbic acid (vitamin C) 500 mg capsule mg PO 10/31/21 [History Confirmed 03/01/22] omega 8-hdh-yxv-fish oil 60 mg-90 mg-500 mg capsule (Fish Oil) 1 cap PO DAILY 10/31/21 [History Confirmed 03/01/22] amoxicillin 875 mg-potassium clavulanate 125 mg tablet 1 tab PO BID #28 tabs 11/16/21 [Rx Confirmed 03/01/22] meclizine 25 mg tablet 12.5 mg PO BID PRN dizziness #14 tabs 11/30/21 [Rx Confirmed 03/01/22] amlodipine 5 mg tablet 5 mg PO DAILY HTN #90 tabs 02/08/22 [Rx Confirmed 03/01/22] lisinopril 20 mg tablet 20 mg PO DAILY HTN #90 tabs 02/08/22 [Rx Confirmed 03/01/22] PFSH Medical History? Acute sinusitis, unspecified Alcohol use Benign essential hypertension Bruises easily Bruising Carotid arterial disease Chest pain Difficulty with CPAP use Heartburn HLD (hyperlipidemia) Hypertension Leg cramps Migraine headache Prostate disease Sleep apnea Smoker Tobacco use disorder Surgical History? Carotid stenosis, left History of carotid endarterectomy Hx of esophagogastroduodenoscopy Hx of eye surgery S/P appendectomy S/P carotid endarterectomy (~08/2021) S/P colonoscopy Family History? Father Lung cancer Social History? Smoking Status:? Current every day smoker tobacco type: cigarettes second hand exposure:? Yes alcohol intake:? current substance use type:? does not use caffeine:? No what type of physical activity do you participate in:? walking, running and weight training frequency:? 3-4 times per week seatbelt use:? always HPI HPI Surgical H&P: Yes HPI: Patient is a 61 y/o M I am seeing for an update history and physical for an elective abdominal pelvic left lower extremity arteriogram with possible left endovascular intervention. Patient denies any recent hospitalizations or illnesses since his last visit. Patient notes bilateral lower extremities with claudication. He is maintained on a daily aspirin. Patient's previous history per Dr. Bronson: 61-year-old gentleman.? I have most recently seen him in the office on November 16, 2021.? That was in follow-up of extracranial carotid artery occlusive disease.? August 30, 2021 I did a right carotid enterectomy and then he had evacuation of a hematoma the right neck September 05, 2021.? That area continues to improve. His most recent carotid duplex imaging December 07, 2021 demonstrates maximal velocity within the mid right internal carotid artery 165 cm second flow with minimal plaque noted.? Tortuosity is noted and that it is at an area of tortuosity with where the velocity is increased and likely is an overestimation of the degree of stenosis.? There are postoperative changes of the left carotid bulb with some irregular plaque with 50 to 69% stenosis.? Compared to a previous study of October 03, 2021 there is increased velocities in bilateral internal carotids.? A neck CTA of September 04, 2021 showed a heterogenous collection of the right neck 7.3 cm consistent with a hematoma.? No flow-limiting stenosis aneurysm or dissection of the large vessels of the neck. He was seen by Dr. Kenia Morrison in November 30, 2021.? Is complaining of unsteady dizziness spinning sensation.? This felt to have acute sinusitis and benign paroxysmal positional vertigo Had a previous office visit October 31, [address] Kenia Morrison the patient complained of claudication.? Recommendations were for aortic ultrasound and ABIs but I I do not see that those were accomplished. The patient underwent [facility] screening on November 25, 2021.? They did not inspect his carotids because of his recent investigations.? They did not find a abdominal aortic aneurysm.? They did find peripheral arterial occlusive disease with a left ILSA of 0.71 and a right ILSA of 0.8.? The patient has an elevated high sensitive see reactive protein of 3.2 He has been a greater than [id number] history of smoking and although he stopped for 2 months both he and his have resumed their tobacco use The patient complains of bilateral calf pain with walking.? He initially complained of the right leg worse than the left but now the left leg seems to be every bit as bad as the right possibly even worse.? He used to use a treadmill but now he is given up on that because of his leg discomfort.? He even notices discomfort that extends into his buttock. He is not on cholesterol medication.? 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 ROS General General: No weight change, appetite, fatigue, colon cancer, breast cancer or weakness HEENT HEENT: Yes eye surgery; No difficulty swallowing, eye injury, swollen glands or hoarseness Endo Endocrine: No thyroid disease, diabetes mellitus, thyroid cancer, Hair loss, heat intolerance or cold intolerance Skin Skin: No rash or changing moles Musc Musculoskeletal: No back problems, arthritis, rheumatoid arthritis, gout or joint pain Cardio Cardiovascular: No murmur, pacemaker, heart disease, atrial fibrillation, high blood pressure, heart attack, heart stent, palpitations, shortness of breat with exertion or chest pain Psych Psychiatric: No depression, anxiety or hearing voices Resp Respiratory: No shortness of breath, No sleep apnea, No cough, No COPD, No asthma, No emphysema and No wheezing Gastro Gastrointestinal: No abdominal pain, No nausea or vomiting, No diarrhea, No constipation, No blood in stool, No acid reflux, No hemorrhoids, No ulcers, No gallbladder problem and No black,tarry stools Neo Hematologic: No blood thinners, No blood disorders, No bleeding, No anemia and No blood clots Neuro Neurologic: No system reviewed and no additional complaints, except as documented, No as per HPI, No abnormal gait, No abnormal hearing, No abnormal movements, No abnormal speech, No behavioral changes, Yes burning sensations (Legs), No confusion, No convulsions, No disequilibrium, No dizziness, No localized weakness, No frequent falls, No headache(s), No lack of coordination, No loss of vision, No memory loss, Yes numbness (legs), No other visual disturbances, No radicular pain, No restless legs, No sensory deficit, No syncope, Yes tingling (legs), No tremor(s), No weakness and No other Exam Const General: cooperative, healthy appearing, comfortable and no acute distress HENMT Head: normal to inspection Neck Neck: normal visual inspection Neck mass: No Resp Effort & Inspection: normal respiratory effort Auscultation: clear to auscultation bilaterally Cardio Rate: regular rate Rhythm: regular rhythm Other: Bilateral radial pulse- 2+, bilateral femoral pulse 2+, left popliteal DP and PT are absent, right popliteal and DP pulses are absent, right posterior tibial 2+ GI Inspection: normal to inspection Palpation: soft Auscultation: normal bowel sounds Musc Cervical Spine: normal cervical lordosis Skin General: no rashes or lesions noted Neuro General: no focal motor deficits Extrem General: normal to inspection Psych Appearance: grossly normal Affect: normal affect Assessment and Plan Assessment and Plan (1) PVD (peripheral vascular disease) with claudication: ?Status:?Acute ?Plan: Dr. Bronson will plan to perform an abdominal pelvic left lower extremity arteriogram with possible endovascular intervention. Patient is also aware if iliofemoral disease is identified bilaterally, there is a potential that bilateral common femoral arteries would be accessed retrograde with possible endovascular intervention of his iliac vessels. Patient is maintained on a daily aspirin. Patient has had the opportunity to ask and have questions answered. Patient will obtain a CBC and BMP labs today. Patient verbally understands and agrees with the plan. I have examined the patient and the H&P has been reviewed. There are no clinical changes since date of exam. Blane Bronson M.D., F.A.C.S.
--- NOTE | 2022-03-02 09:50 | PCM.OPRPT ---
Report of Operation Date of Procedure: 03/02/22 Pre-Operative Diagnosis: Bilateral lower extremity claudication Post-Operative Diagnosis: Bilateral common iliac and external iliac occlusive disease. Occlusion left anterior tibial artery Surgery/Procedure Performed:: Abdominal pelvic left lower extremity arteriogram Bilateral common iliac 8 x 29 mm Fannie stenting reconstruction of aortic bifurcation Right common iliac 9 x 39 mm VBX stenting Right external iliac 8 x 40 mm angioplasty Left external iliac 8 x 40 mm angioplasty x2 locations Description of Surgical Findings:: Timeout informed consent was obtained the patient was taken to the special procedures lab placed on the table throughout the procedure he received in aliquots a total of 50 mcg of fentanyl and 3 mg of Versed is intravenous sedation bilateral groins were sterilely prepped and draped under ultrasound guidance the right common femoral artery was identified 2% lidocaine was instilled throughout the procedure a total of 20 cc of 2% lidocaine was used and under ultrasound guidance micropuncture needle was inserted micropuncture wire micropuncture sheath 035 J-wire 5 Lithuanian short sheath dilator then an 035 stiff Glidewire was placed in the abdominal aorta enough 5 Lithuanian universal flush catheter was placed. Visipaque contrast was used throughout the procedure and total of 65 cc was used. An AP aortogram was obtained of the abdominal aorta and pelvis. This demonstrated diffuse irregular disease of the proximal right common iliac and proximal left common iliac was able to get the Glidewire into the left common neck advance the Glidewire into the proximal left superficial femoral artery and then static views of the left lower extremity were obtained having performed that I then popped sheath the right groin to a 7 Lithuanian and eventually an 8 Lithuanian sheath I then used ultrasound and 2% lidocaine micropuncture technique and then placement of a 7 Lithuanian sheath on the left. Patient received 10,000 units of heparin. I placed in a kissing technique to 8 x 29 mm Fannie stents. They were deployed. Upon inspection. The stents were slightly more proximally into the abdominal aorta however the area of disease on the left nicely covered while the aortic bifurcation had been truly reconstructed more proximally now in the disease in the right incompletely covered. This at this point that up sheath to the 8 Lithuanian sheath and I then placed a 9 x 39 mm VBX stent additionally has an extension in the right common iliac. Images demonstrated now disease of the bilateral common necks appear to be covered widely patent and there appeared to be significantly improved flow The patient had stenosis of at least 70% at the immediate bifurcation of the external iliac internal iliac and common iliac. I placed the 8 x 4 balloon performed balloon angioplasty of that area only up to 8 dillon of pressure. Inspection revealed improvement because of its location because of a fairly dominant sized internal iliac I elected not to place any stents. On the left there is an area of stenosis in a similar location just proximal to the bifurcation of the internal iliac and also distally close to the inguinal ligament on the left. I treated both these areas with the 8 x 4 balloon but only up to 4 dillon of pressure. The proximal 1 responded nicely to the distal 1 had a very short segment of nonflow limiting dissection. The patient was completely asymptomatic and comfortable. I elected not to perform any additional treatment on the left. The patient had nicely palpable bilateral PT pulses. This point I deployed Perclose devices in both groins. I was prepared to place a second 1 on the right however the initial 1 immediately obtained hemostasis. Both groins were hemostatic additional gentle pressure was held. I did not give any reversal agent. It is of note that the patient did receive an additional 1000 units of heparin during the procedure based upon ACT measurements. The patient was taken to the recovery area in satisfactory addition without apparent complication Images demonstrate mild diffuse disease of the abdominal aorta with irregular calcific plaque at the bifurcation of the common iliacs with more diffuse disease extending within the proximal right common iliac there was at least 70% stenosis. The very proximal right external iliac at its bifurcation and moderate stenosis of the left external iliac at the internal iliac bifurcation as well as distally close to the inguinal ligament. The left superficial femoral and popliteal are patent the left anterior tibial artery occludes shortly after its origin left peroneal and posterior tibial appear to be patent down to the ankle. Subsequent to the angioplasty and stenting there is essentially reconstruction of the aortic bifurcation with the Fannie stents. There appears to be wide open patency at this location. Minimal plaque at the origin of the right external iliac. Nicely responded left proximal external iliac and nonflow limiting dissection and patent angioplasty of the distal left external iliac Total contrast used was 65 cc. Blane Bronson M.D., F.A.C.S. Surgeon: Blane Bronson Type of Anesthesia: IV Sedation and Local
[2022-03-02 15:49] LABS: ACT Activated Clotting Time 155 sec (74-137)
[2022-03-02 15:50] LABS: ACT Activated Clotting Time 299 sec (74-137)
[2022-03-02 15:50] LABS: ACT Activated Clotting Time 305 sec (74-137)
== END 2022-03-02 13:58 | disposition home or self-care (01) ==
PROVIDERS: Physician Assistant; PCP Internal Medicine; Referring Provider Surgery; Visit Provider Surgery
DX: I73.9 Peripheral vascular disease, unspecified (principal); G47.30 Sleep apnea, unspecified; F17.210 Nicotine dependence, cigarettes, uncomplicated; I10 Essential (primary) hypertension; Z79.82 Long term (current) use of aspirin; Z79.899 Other long term (current) drug therapy; Z79.01 Long term (current) use of anticoagulants
CPT/HCPCS: 36200; 36245; 36246; 36415; 37220; 37221; 37222; 75625; 75716; 76937; 80048; 85025; 85347; 99152; 99153; C1874; J7030; J7040; Q9967; C1760; C1769; C1876; C1894

== ENCOUNTER 2022-03-07 10:26 | Emergency (ER) | payer OTHER, SELFPAY ==
[2022-03-07 10:28] VITALS: BP 160/74; PULSE 105; RESP 16; TEMP 36.6; O2SAT 99; BMI 30.9
--- NOTE | 2022-03-07 10:51 | RAD_ITS ---
STUDY: X-RAY CHEST REASON FOR EXAM: Male, 61 years old. Lightheadedness and dizziness. Weakness. TECHNIQUE: Single AP portable view of the chest. COMPARISON: Comparison is made with prior study dated 08/22/2015. FINDINGS: EKG electrodes are seen. Mild increased markings at the left lung base. This may represent either atelectasis and/or early infiltrate. There is no demonstrated pleural abnormality. Normal size heart. Normal mediastinum and cain. Normal visualized pulmonary arteries. Normal visualized aortic arch and descending thoracic aorta. There are diffuse degenerative changes of the visualized thoracic spine. Normal visualized ribs, clavicles, and shoulders. There is no demonstrated abnormality of the visualized soft tissue structures of the upper abdomen. RAD/Chest 1 View (Portable) IMPRESSION: Mild increased markings at the left lung base suggestive of either atelectasis and/or early infiltrate. Electronically Signed: Maximo Caruso MD at 11:21 EST ,
--- NOTE | 2022-03-07 10:52 | EKG12_ITS ---
Test Reason : AB Blood Pressure : / mmHG Vent. Rate : 101 BPM Atrial Rate : 101 BPM P-R Int : 142 ms QRS Dur : 092 ms QT Int : 350 ms P-R-T Axes : 046 084 026 degrees QTc Int : 453 ms Sinus tachycardia Otherwise normal ECG Confirmed by ANDREA MCGEE, MANA ([id number]), subeditor CUATE ASHFORD ([id number]) on 03/09/2022 9:22:26 AM Referred By: Confirmed By:MANA MENDEZ MD
--- NOTE | 2022-03-07 10:53 | EX.ED.DYSGE1 ---
HPI History of Present Illness Chief Complaint: Fatigue Narrative Narrative: 61-year-old male presenting with lightheadedness. He does not describe this as vertiginous. He states he walked out to his shed while he was out there he became lightheaded and felt like he was going to pass out. He states he had a stent placed in his left external iliac about a week ago from Dr. Bronson. He states he is immediate concern was that he might of sprung a leak. He does not note any swelling to the area. Patient states his symptoms lasted for about 30 minutes on and off. He denied chest pain but states he might of felt a little short of breath with the episode. He states he feels like its a panic attack. He does have a history of anxiety that he knows of. He does have a history of benign positional vertigo. He is not had a fever, chills, sweats. He is not had any chest pain. He denies cardiac history. [facility] Medical History Acute sinusitis, unspecified Alcohol use Benign essential hypertension Bruises easily Bruising Carotid arterial disease Chest pain Difficulty with CPAP use Heartburn HLD (hyperlipidemia) Hypertension Leg cramps Migraine headache Prostate disease Sleep apnea Smoker Tobacco use disorder Home Medications calcium cmb no.1-vit G5-V8-LA-B12 120 mg-1,000 unit-10 mg tablet 1 tab PO DAILY SUPPLEMENT 06/30/19 [History Last Taken Unknown] multivitamin 1 tab PO DAILY SUPPLEMENT 06/30/19 [History Last Taken Unknown] sucralfate 1 gram tablet (Carafate) 1 g PO BID PRN GI UPSET 08/22/21 [History Last Taken Unknown] aspirin 81 mg tablet,delayed release 81 mg PO DAILY #360 tabs 08/30/21 [Rx Last Taken Unknown] tamsulosin 0.4 mg capsule 0.4 mg PO DAILY #90 caps 10/06/21 [Rx Last Taken Unknown] ascorbic acid (vitamin C) 500 mg capsule mg PO 10/31/21 [History Last Taken Unknown] omega 9-rxc-bqr-fish oil 60 mg-90 mg-500 mg capsule (Fish Oil) 1 cap PO DAILY 10/31/21 [History Last Taken Unknown] amoxicillin 875 mg-potassium clavulanate 125 mg tablet 1 tab PO BID #28 tabs 11/16/21 [Rx Last Taken Unknown] meclizine 25 mg tablet 12.5 mg PO BID PRN dizziness #14 tabs 11/30/21 [Rx Last Taken Unknown] amlodipine 5 mg tablet 5 mg PO DAILY HTN #90 tabs 02/08/22 [Rx Last Taken 03/02/22] lisinopril 20 mg tablet 20 mg PO DAILY HTN #90 tabs 02/08/22 [Rx Last Taken 03/02/22] clopidogrel 75 mg tablet (Plavix) 75 mg PO DAILY #90 tabs 03/02/22 [Rx Last Taken Unknown] Allergy/AdvReac Type Severity Reaction Status Date / Time doxycycline Allergy Rash Verified 03/07/22 10:27 prednisone Allergy Rash Verified 03/07/22 10:27 atorvastatin AdvReac Other Verified 03/07/22 10:27 Dnunugj-VLQ-BqG Reductase AdvReac Other Verified 03/07/22 10:27 Inhibitor Family History Father Lung cancer Surgical History Carotid stenosis, left History of carotid endarterectomy Hx of esophagogastroduodenoscopy Hx of eye surgery S/P appendectomy S/P carotid endarterectomy (~08/2021) S/P colonoscopy Social History Smoking Status: Current every day smoker tobacco type: cigarettes second hand exposure: Yes alcohol intake: current substance use type: does not use caffeine: No what type of physical activity do you participate in: walking, running and weight training frequency: 3-4 times per week seatbelt use: always EXAM Physical Exam Const Vital Signs: 03/07/22 10:28 03/07/22 10:30 03/07/22 11:22 Temperature 98 F Temperature Source Temporal Pulse Rate 105 H Pulse Rate [Lying] 78 Pulse Rate [Sitting (for 1 minute prior to obtaining)] 81 Pulse Rate [Standing (for 1 minute prior to obtaining)] 101 H Respiratory Rate 16 Respiratory Pattern Normal Blood Pressure 160/74 H Blood Pressure [Lying] 127/67 H Blood Pressure [Sitting (for 1 minute prior to obtaining)] 125/77 H Blood Pressure [Standing (for 1 minute prior to obtaining)] 130/81 H Blood Pressure Mean 102 Blood Pressure Mean [Lying] 87 Blood Pressure Mean [Sitting (for 1 minute prior to obtaining)] 93 Blood Pressure Mean [Standing (for 1 minute prior to obtaining)] 97 Pulse Ox 99 Oxygen Delivery Method Room Air 03/07/22 12:33 Temperature Temperature Source Pulse Rate 71 Pulse Rate [Lying] Pulse Rate [Sitting (for 1 minute prior to obtaining)] Pulse Rate [Standing (for 1 minute prior to obtaining)] Respiratory Rate 22 H Respiratory Pattern Blood Pressure 116/75 Blood Pressure [Lying] Blood Pressure [Sitting (for 1 minute prior to obtaining)] Blood Pressure [Standing (for 1 minute prior to obtaining)] Blood Pressure Mean 88 Blood Pressure Mean [Lying] Blood Pressure Mean [Sitting (for 1 minute prior to obtaining)] Blood Pressure Mean [Standing (for 1 minute prior to obtaining)] Pulse Ox 96 Oxygen Delivery Method Room Air Positive well nourished General Appearance ED: NAD; Negative for pallor HEENT Reports moist mucous membranes Eyes PERRL and EOMs intact bilaterally Resp normal respiratory effort and clear to auscultation bilaterally Auscultation: Negative for rales, rhonchi or wheezes Cardio regular rate and regular rhythm GI normal to inspection, nondistended, normoactive bowel sounds Neuro oriented x3 Sensorium / Orientation: alert Motor Exam: strength 5/5 throughout Psych mental status grossly normal Skin General Skin Exam: Negative for jaundice or pallor MDM MDM MDM Narrative Medical decision making narrative: Patient presenting with lightheadedness. He does not describe it as vertiginous. Does have a history of vertigo. He states that she will usually give a little bit of vertiginous dizziness when he first stands up. Patient did not have any chest pain during his episodes. He does state that he felt transiently short of breath while he felt lightheaded. EKG was obtained and on my interpretation this is a normal sinus tachycardia with a ventricular rate of 101 bpm. No signs of ischemia. Chest x-ray on my interpretation shows no acute cardiopulmonary process. The radiologist represents and states increased linear markings and possible atelectasis versus infiltrate. Patient has not had any cough, fever, congestion. His CBC shows no elevated white blood cell count and is currently 10.7. Hemoglobin is actually higher than previous. Renal function and electrolytes are normal. LFTs within normal limits. High-sensitivity troponin is 5. Orthostatic vital signs are normal. Patient was able to ambulate to the restroom without any difficulty. At this point I feel he stable for discharge home. Return precautions were discussed. Impression: 1. Dyspnea resolved 2. Lightheadedness Lab Data Attestation: I reviewed the patient's lab results. Labs: Laboratory Results - last 24 hr 03/07/22 03/07/22 10:00 10:00 WBC 10.7 RBC 5.86 Hgb 16.8 H Hct 50.0 MCV 85.3 MCH 28.7 MCHC 33.6 RDW Std Deviation 45.1 H RDW Coeff of Og 14.5 Plt Count 323 MPV 9.6 Immature Gran % (Auto) 0.500 Neut % (Auto) 71.7 H Lymph % (Auto) 15.7 L [place] % (Auto) 3.5 Eos % (Auto) 7.5 H Baso % (Auto) 1.1 H Absolute Neuts (auto) 7.7 Absolute Lymphs (auto) 1.68 Nucleated RBC % 0 Sodium 137 Potassium 3.9 Chloride 103 Carbon Dioxide 25.0 Anion Gap 9 BUN 16 Creatinine 0.88 Estim Creat Clear Calc 80.33 Est GFR (MDRD) Af Amer 112 Est GFR (MDRD) Non-Af 92 BUN/Creatinine Ratio 18.1 Glucose 99 Calcium 9.4 Total Bilirubin 0.40 AST 15 ALT 37 Alkaline Phosphatase 105 Troponin I High Sens 5 Total Protein 8.4 H Albumin 3.8 Globulin 4.6 H Albumin/Globulin Ratio 0.8 L Radiography Diagnostic Testing: Clinical Impression(s) from Imaging Studies Chest X-Ray 03/07/22 10:51 IMPRESSION: Mild increased markings at the left lung base suggestive of either atelectasis and/or early infiltrate. Electronically Signed: Maximo Caruso MD at 11:21 EST , Discharge Plan Triage Chief Complaint: Fatigue ED Provider: Jorge Pineda Dx/Rx/DC Orders Instructions: ED Weakness (Uncertain Cause) Prescriptions: No Action multivitamin Tablet 1 tab PO DAILY calcium cmb no.1-vit G4-M5-NZ-B12 120 mg-1,000 unit-10 mg tablet 120-1,000-10 mg-unit-mg tablet 1 tab PO DAILY tamsulosin 0.4 mg capsule 0.4 mg PO DAILY Qty: 90 2RF omega 1-ypr-upc-fish oil [Fish Oil] 60-90-500 mg capsule 1 cap PO DAILY ascorbic acid (vitamin C) 500 mg capsule PO amoxicillin-pot clavulanate 875-125 mg tablet 1 tab PO BID Qty: 28 0RF meclizine 25 mg tablet 12.5 mg PO BID PRN (Reason: dizziness) Qty: 14 0RF sucralfate [Carafate] 1 gram Tablet 1 g PO BID PRN (Reason: GI UPSET) aspirin 81 mg tablet,delayed release (DR/EC) 81 mg PO DAILY Qty: 360 0RF Hold Instructions: Resume on 09/13/21. clopidogrel [Plavix] 75 mg tablet 75 mg PO DAILY Qty: 90 0RF amlodipine 5 mg tablet 5 mg PO DAILY Qty: 90 3RF lisinopril 20 mg tablet 20 mg PO DAILY Qty: 90 3RF Primary Care Provider: Kenia Morrison Referrals: Kenia Morrison MD [Primary Care Provider] - Disposition Disposition: Home, Self Care
[2022-03-07 11:06] LABS: Absolute Lymphocyte Count 1.68 X10^3/uL (0.83-4.51); Absolute Neutrophil Count 7.7 X10^3/uL (2.0-7.7); Basophil# 0.12 X10^3/uL; Basophil% 1.1 % (0-1); Eosinophils% 7.5 % (0-5); Hemoglobin 16.8 g/dL (13.0-16.5); Lymphocyte # 1.68 X10^3/ul (0.83-4.51); Lymphocyte % 15.7 % (19-41); Mean Corp Hgb Conc 33.6 g/dL (32-36); Mean Corpuscular Hgb 28.7 pg (27.0-32.0); Mean Corpuscular Volume 85.3 fL (80-94); Mean Platelet Vol. 9.6 fl (6.2-12.0); Monocyte# 0.37 X10^3/uL; Monocyte% 3.5 % (0-10); NRBC Flagged by Analyzer 0 % (0-5); Neutrophil # 7.65 X10^3/uL (2.7-7.7); Neutrophil % 71.7 % (47-70); Platelet Count 323 K/mm3 (150-450); RBC Distribution Width CV 14.5 % (11.6-14.6); RBC Distribution Width SD 45.1 fl (35.1-43.9); Red Blood Count 5.86 M/mm3 (4.6-6.2); White Blood Count 10.7 K/mm3 (4.4-11.0)
[2022-03-07 11:22] VITALS: BP 125/77; BP 127/67; BP 130/81; PULSE 101; PULSE 78; PULSE 81
[2022-03-07 11:23] LABS: ALB/GLOB Ratio 0.8 RATIO (0.9-2.4); AST(SGOT) 15 U/L (15-37); Alanine Aminotransfer ALT/SGPT 37 U/L (16-61); Albumin, Serum 3.8 g/dL (3.2-5.0); Alkaline Phosphatase 105 U/L (45-117); Anion Gap 9 (5-15); BUN 16 mg/dL (7-18); BUN/Creat Ratio 18.1 RATIO (10-20); Calcium,Total 9.4 mg/dL (8.5-10.1); Chloride 103 mmol/L (98-107); Creatinine, Serum 0.88 mg/dL (0.70-1.30); EST Glomerular Filtration Rate 92 mL/min (>60); Est Glom Filt Rate - Afr Amer 112 mL/min (>60); Estimated Creatinine Clearance 80.33 ml/min; Globulin 4.6 g/dL (2.2-4.2); Glucose 99 mg/dL (74-106); Potassium 3.9 mmol/L (3.5-5.1); Protein, Total 8.4 g/dL (6.4-8.2); Sodium Level 137 mmol/L (136-145); Troponin-I HS 5 pg/mL (3.0-78.0)
[2022-03-07 12:33] VITALS: BP 116/75; PULSE 71; RESP 22; O2SAT 96
[2022-03-07 14:21] VITALS: BP 123/76; PULSE 73; PULSE 78; RESP 19; RESP 21; O2SAT 97; O2SAT 98
== END 2022-03-07 14:32 | disposition home or self-care (01) ==
PROVIDERS: Emergency Provider Student in an Organized Health Care Education/Training Program; PCP Internal Medicine; Visit Provider Student in an Organized Health Care Education/Training Program
DX: R42 Dizziness and giddiness (principal); I10 Essential (primary) hypertension; E78.5 Hyperlipidemia, unspecified; F17.210 Nicotine dependence, cigarettes, uncomplicated; F41.9 Anxiety disorder, unspecified; R55 Syncope and collapse; R53.83 Other fatigue
CPT/HCPCS: 71045; 80053; 84484; 85025; 93005; 99285

== ENCOUNTER → 2022-04-04 | Outpatient (CLI) | payer OTHER, SELFPAY ==
--- NOTE | 2022-04-04 07:36 | ART_ITS ---
Reason For Study: Claudication Procedure A bilateral lower extremity continuous wave Doppler with analog waveform analysis,segmental pressures,and ankle brachial indexes with exercise. Left Segmental Pressures Left brachial= 126mmHg. Left posterior tibial artery = 137mmHg. Left dorsalis pedis artery = 111mmHg. Left digit = 106 mmHg. The left posterior tibial artery waveforms are triphasic. The left dorsalis pedis waveforms are triphasic. Right Segmental Pressures Right brachial= 127mmHg. Right thigh = 135mmHg. Right calf = 105mmHg. Right posterior tibial artery = 109mmHg. Right dorsalis pedis artery = 88mmHg. Right digit = 62 mmHg. The right posterior tibial artery waveforms are triphasic. The right dorsalis pedis waveforms are triphasic. Indices The right ankle brachial index by the posterior tibial artery is 0.86. The right ankle brachial index by the dorsalis pedis is 0.69. The right digital-brachial index is 0.49. The right ankle brachial index by the posterior tibial artery post exercise is 0.87. The left ankle brachial index by the posterior tibial artery is 1.08. The left ankle brachial index by the dorsalis pedis is 0.87. The left digital-brachial index is 0.83. The left post exercise ankle brachial index is 1.00. VL/Lower Ext Art Exam w/ Exercise Interpretation Summary Abnormal right posterior tibial and dorsalis pedis Doppler waveforms at rest at 0.86 and 0.69 respectively consistent with moderate occlusive disease. Interestingly there is no change with exercise. The right digital brachial indices of 0.49 is abnormal suggestive of small vess el disease. Left lower extremity posterior tibial and dorsalis pedis ankle-brachial indices at rest are 1.08 and 0.87 respectively suspicious for mild occlusive disease. The exercise response is normal suggesting no areas of clinically significant stenosis. The left digital brachial index is 0.83 which is normal Ordering Physician: Blane Bronson MD Referring Physician: Kenia Morrison M.D. Performed By: Gilberto Isaac RVT
== END | disposition home or self-care (01) ==
LOC: CVS 07:35
PROVIDERS: PCP Internal Medicine; Visit Provider Physician Assistant
DX: I73.9 Peripheral vascular disease, unspecified (principal)
CPT/HCPCS: 93924

== ENCOUNTER → 2022-04-10 | Outpatient (CLI) | payer OTHER, SELFPAY ==
[2022-04-10 12:33] LABS: Absolute Lymphocyte Count 1.79 X10^3/uL (0.83-4.51); Absolute Neutrophil Count 7.7 X10^3/uL (2.0-7.7); Basophil# 0.18 X10^3/uL; Basophil% 1.6 % (0-1); Eosinophil# 0.77 X10^3/uL; Eosinophils% 7.1 % (0-5); Hemoglobin 15.6 g/dL (13.0-16.5); Lymphocyte # 1.79 X10^3/ul (0.83-4.51); Lymphocyte % 16.4 % (19-41); Mean Corp Hgb Conc 33.2 g/dL (32-36); Mean Corpuscular Hgb 27.9 pg (27.0-32.0); Mean Corpuscular Volume 84.1 fL (80-94); Mean Platelet Vol. 9.2 fl (6.2-12.0); Monocyte# 0.44 X10^3/uL; NRBC Flagged by Analyzer 0 % (0-5); Neutrophil % 70.6 % (47-70); Platelet Count 261 K/mm3 (150-450); RBC Distribution Width CV 14.4 % (11.6-14.6); RBC Distribution Width SD 43.8 fl (35.1-43.9); Red Blood Count 5.59 M/mm3 (4.6-6.2); White Blood Count 10.9 K/mm3 (4.4-11.0)
[2022-04-10 12:55] LABS: Vitamin B12 935 pg/mL (211-911)
[2022-04-10 13:22] LABS: AST(SGOT) 20 U/L (15-37); Alanine Aminotransfer ALT/SGPT 33 U/L (16-61); Albumin, Serum 3.7 g/dL (3.2-5.0); Alkaline Phosphatase 86 U/L (45-117); Anion Gap 6 (5-15); BUN 18 mg/dL (7-18); BUN/Creat Ratio 20.4 RATIO (10-20); Calcium,Total 9.3 mg/dL (8.5-10.1); Chloride 107 mmol/L (98-107); Cholesterol 238 mg/dL (200); Creatinine, Serum 0.88 mg/dL (0.70-1.30); EST Glomerular Filtration Rate 93 mL/min (>60); Est Glom Filt Rate - Afr Amer 112 mL/min (>60); Globulin 3.8 g/dL (2.2-4.2); Glucose 95 mg/dL (74-106); High Density Lipoprotein 36 mg/dL; PSA,Total- Diagnostic 7.76 ng/mL (0.0-4.0); Potassium 4.5 mmol/L (3.5-5.1); Protein, Total 7.5 g/dL (6.4-8.2); Sodium Level 139 mmol/L (136-145); Thyroid Stim Hormone (TSH) 2.24 uIU/mL (0.358-3.74); Triglycerides 287 mg/dL; Very Low Density Lipoprotein 57 mg/dL (5-40)
== END | disposition home or self-care (01) ==
LOC: LAB 11:47
PROVIDERS: PCP Internal Medicine; Referring Provider Internal Medicine; Visit Provider Internal Medicine
DX: I73.9 Peripheral vascular disease, unspecified (principal); I77.9 Disorder of arteries and arterioles, unspecified; E78.5 Hyperlipidemia, unspecified; I10 Essential (primary) hypertension; N40.0 Benign prostatic hyperplasia without lower urinary tract symptoms; E53.8 Deficiency of other specified B group vitamins; E55.9 Vitamin D deficiency, unspecified
CPT/HCPCS: 36415; 80053; 80061; 82306; 82607; 84153; 84443; 85025

== ENCOUNTER → 2022-06-26 | Outpatient (CLI) | payer OTHER, SELFPAY ==
--- NOTE | 2022-06-26 06:36 | ECHOD_ITS ---
Reason For Study: DYSPNEA Procedure This was a 2D Doppler, Color Flow transthoracic echocardiogram. Exam performed in department. Left Ventricle Normal LV size. Left ventricular systolic function is normal. The estimated ejection fraction is 55 %. Stage 1 diastolic dysfunction. No regional wall motion abnormalities noted. Right Ventricle Normal RV size. Normal systolic function. Atria Normal left atrium. Normal right atrium. Mitral Valve Normal mitral valve. Tricuspid Valve Normal tricuspid valve. Mild tricuspid valve insufficiency. Aortic Valve Trisinus/trileaflet aortic valve. Pulmonic Valve Normal pulmonic valve. Great Vessels Normal aortic root. The pulmonary artery is normal size. Normal inferior vena cava. Pericardium/Pleural No pericardial effusion. MMode/2D Measurements & Calculations LVIDd: 4.3 cm IVSd: 0.81 cm Ao root diam: 3.5 cm LVIDs: 2.6 cm LVPWd: 0.83 cm RVDd: 2.9 cm FS: 40.4 % LAV(MOD-bp): 47.4 ml LVAd ap4: 24.5 cm2 SV(MOD-sp4): 40.7 ml LAV(MOD-bp) Indexed: 24.6 ml/m2 LVLd ap4: 7.7 cm LAV(MOD-sp2): 40.6 ml EDV(MOD-sp4): 63.6 ml LAV(MOD-sp4): 48.0 ml EDV(sp4-el): 66.0 ml LVAs ap4: 12.9 cm2 LVLs ap4: 6.2 cm ESV(MOD-sp4): 23.0 ml ESV(sp4-el): 22.8 ml EF(MOD-sp4): 63.9 % EF(sp4-el): 65.5 % SV(sp4-el): 43.2 ml LA A4 area: 19.4 cm2 LA dimension(2D): 3.3 cm RA A4 area: 13.9 cm2 Time Measurements MV dec time: 0.19 sec Doppler Measurements & Calculations MV E max [place]: 77.8 cm/sec Lat Peak E' [place]: 10.1 cm/sec Med Peak E' [place]: 9.8 cm/sec MV A max [place]: 94.3 cm/sec E/E' lat: 7.7 E/E' med: 8.0 MV E/A: 0.83 MV V2 max: 108.0 cm/sec Ao V2 max: 147.6 cm/sec MV max P.7 mmHg MV dec slope: 427.3 cm/sec2 Ao max P.7 mmHg MV V2 mean: 58.1 cm/sec Ao V2 mean: 96.4 cm/sec MV mean P.6 mmHg Ao mean P.4 mmHg MV V2 VTI: 41.8 cm Ao V2 VTI: 32.1 cm AV (velocity ratio): 0.85 LV V1 max: 122.7 cm/sec PA V2 max: 116.2 cm/sec TR max [place]: 213.1 cm/sec LV V1 max P.0 mmHg PA V2 mean: 77.2 cm/sec TR max P.2 mmHg LV V1 mean P.1 mmHg LV V1 mean: 81.9 cm/sec LV V1 VTI: 27.2 cm ECHO/Echo Complete Interpretation Summary Normal LV size. Left ventricular systolic function is normal. The estimated ejection fraction is 55 %. Stage 1 diastolic dysfunction. Ordering Physician: Edson Can Referring Physician: Edson Can Performed By: Kelsea Bradford RCS
--- NOTE | 2022-06-26 13:57 | STRESSREP_ITS ---
Stress Test Report Exercise myocardial perfusion stress test. 62-year-old man with a history of coronary artery disease Stress protocol: Resting EKG demonstrates normal sinus rhythm with a rate of 60 bpm resting blood pressure is 118/64 mmHg. The patient exercised according to the regular Tyrese protocol for a total duration of 7 minutes completing 1 minute into stage III attaining a maximum heart rate of 134 bpm which was 85% of maximum predicted heart rate; the maximum workload was 10.1 metabolic equivalents. At rest there were no ST or T wave changes noted to suggest ischemia and at peak exercise upsloping ST changes only were noted which did not meet the criteria for ischemia. No clinical angina was noted the test was terminated due to the targe t heart rate being achieved/fatigue. The peak blood pressure was 190/72 mmHg. Rate-pressure product was 21,700. Myocardial perfusion protocol. 11.5 mCi of technetium 99m sestamibi was injected at rest. The patient exercised according to regular Tyrese protocol for total duration of 7 minutes and at peak exercise 34.9 mCi of technetium 99m sestamibi was injected stress images were obtained stress and rest images were reconstructed in comparing the short axis vertical long and horizontal long axis. Gated images were also obtained. Perfusion SPECT analysis: Review of the stress images demonstrate normal uptake of tracer noted in all areas of the myocardium. The resting images similarly demonstrate normal uptake of tracer noted in all areas of the myocardium. No areas of reversibility are noted to suggest ischemia no previous infarct was noted. Gated SPECT analysis: The gated ejection fraction is 66%. Conclusion: Normal exercise myocardial perfusion stress test at a moderate workload to high workload Normal ejection fraction.
== END | disposition home or self-care (01) ==
LOC: CVS 06:35
PROVIDERS: PCP Internal Medicine; Referring Provider Internal Medicine Cardiovascular Disease; Visit Provider Internal Medicine Cardiovascular Disease
DX: I73.9 Peripheral vascular disease, unspecified (principal); I10 Essential (primary) hypertension; I25.10 Atherosclerotic heart disease of native coronary artery without angina pectoris
CPT/HCPCS: 78452; 93017; 93306; A9500; A4216

== ENCOUNTER 2022-09-26 07:41 | Outpatient (RCR) | payer BC, SELFPAY ==
--- NOTE | 2022-11-24 07:20 | HP.PTDCNRP_ITS ---
Patient Information Patient Information: EVANGELINA CALHOUN was seen in my office for initial evaluation on 09/26/22. The following Plan of Care was established for this patient: POC Established Initial Frequency: 2-3x /Week Initial Duration: 4-6 Months Anticipated Interventions Patient/Client Instruction: Educate patient on: Condition, Plan of Care and Risk Factors For the Purpose of:: To improve self management Therapeutic Exercise to Include: Strength training, Body mechanics, Postural training, Flexibilty training, Neuromotor development and Scapular Strength/Stabilization For the Purpose of:: To decrease pain, To increase ROM, To improve muscle performance and motor function, To increase tolerance to activity/ condition/position and To improve ability of physical actions for home/community/work/leisure Cryotherapy (ice pack, ice massage): Yes Thermo therapy (hot pack): Yes Ultrasound (thermal/non thermal): Yes For the Purpose of:: To decrease pain and To improve nutrient delivery to tissue Last Seen Last Seen: This patient was last seen in our office 09/26/22. Pertinent comments regarding their Physical therapy will appear below: This patient has not returned to Physical Therapy and is appropriate to return to MD for further follow-up as needed. At this point I will be discontinuing this patient from physical therapy. I would be happy to see this patient again in the future if found appropriate by the physician. Thank you! Tonja Albrecht, PT, Cert MDT Balance/Gait/Functional tests Balance/Special Test Scores Oswestry Neck Score: 15
== END 2022-09-26 19:00 | disposition home or self-care (01) ==
LOC: PT 07:41
PROVIDERS: PCP Internal Medicine; Referring Provider Physician Assistant; Visit Provider Physician Assistant
DX: S16.1XXD Strain of muscle, fascia and tendon at neck level, subsequent encounter (principal); S46.811D Strain of other muscles, fascia and tendons at shoulder and upper arm level, right arm, subsequent encounter; M54.12 Radiculopathy, cervical region
CPT/HCPCS: 97162

== ENCOUNTER → 2022-10-05 | Outpatient (CLI) | payer BC, SELFPAY ==
--- NOTE | 2022-10-05 07:40 | CDU_ITS ---
Reason For Study: Carotid Stenosis Rt. Velocities/BP Lt. Velocities/BP Prox CCA 85.3/20.4 cm/sec. Prox CCA 88.8/17.6 cm/sec. Mid CCA 89.7/21.5 cm/sec. Mid CCA 81.8/19.2 cm/sec. Dist CCA 56.7/16.0 cm/sec. Dist CCA 87.9/21.6 cm/sec. Bulb = 77.6/19.3 cm/sec. Bulb = 78.1/17.9 cm/sec. Prox ICA 75.9/25.4 cm/sec. Prox ICA 62.0/21.4 cm/sec. Mid ICA 93.6/32.7 cm/sec. Mid ICA 55.4/18.9 cm/sec. Dist ICA 74.3/27.0 cm/sec. Dist ICA 96.5/42.5 cm/sec. Rt. ICA/CCA = 1.04. Lt. ICA/CCA = 1.18. Prox ECA 130.2/6.0 cm/sec. Prox ECA 102.7/13.0 cm/sec. Rt. Vert. 53.4/9.5 cm/sec. Lt. Vert. 39.8/16.2 cm/sec. Right Extracranial There is homogeneous, smooth atherosclerotic plaque noted in the right common carotid artery. There is heterogeneous, irregular atherosclerotic plaque noted in the right internal carotid artery. The right internal carotid artery is very tortuous. HX CEA. There is heterogeneous, irregular atherosclerotic plaque noted in the right external carotid artery. Antegrade flow is noted in the right vertebral artery. There is heterogeneous, irregular atherosclerotic plaque noted in the right bulb. Left Extracranial There is heterogeneous, irregular atherosclerotic plaque noted in the left common carotid artery. There is heterogeneous, irregular atherosclerotic plaque noted in the left internal carotid artery. HX CEA. There is heterogeneous, irregular atherosclerotic plaque noted in the left external carotid artery. Antegrade flow is noted in the left vertebral artery. There is heterogeneous, irregular atherosclerotic plaque noted in the left bulb. Procedure Carotid Duplex [id number]. This is a Carotid Duplex examination using B-mode, color flow and specral Doppler. The exam was diagnostic. Exam performed in department. VL/Carotid Duplex Ultrasound Interpretation Summary Postoperative changes of the right carotid bulb and proximal internal carotid a rtery with tortuosity noted and less than 50% stenosis of the internal carotid artery Less than 50% stenosis right external carotid artery Postoperative changes of the left carotid bulb and proximal internal carotid ar omer with irregular calcific plaque noted in less than 50% stenosis of the internal carotid artery Less than 50% stenosis left external carotid artery Patent and antegrade vertebral arteries bilaterally Ordering Physician: Blane Bronson Referring Physician: Kenia Morrison Performed By: Gilberto Isaac RVT
== END | disposition home or self-care (01) ==
PROVIDERS: PCP Internal Medicine; Referring Provider Surgery; Visit Provider Surgery
DX: I65.21 Occlusion and stenosis of right carotid artery (principal); Z98.890 Other specified postprocedural states
CPT/HCPCS: 93880

== ENCOUNTER 2023-01-06 03:05 | Emergency (ER) | payer BC, SELFPAY ==
[2023-01-06 03:06] VITALS: TEMP 36.7; BMI 28.3
--- NOTE | 2023-01-06 03:19 | EDS_ITS ---
HPI History of Present Illness Chief Complaint: Complaint Informant: patient and spouse/S.O. Narrative Narrative: Patient is a 62-year-old male with past medical history of of hyperlipidemia peripheral vascular disease elevated PSA and one-time event of acute urinary retention following surgery. Patient states that he has been on Flomax secondary to his elevated PSA and ran out of it yesterday. He states otherwise there is been no new medications taken such as Sudafed or Benadryl. He reports he was urinating normally throughout the day and his last urination was approximately 9 PM. He states he awoke roughly 30 minutes to 1 hour prior to arrival with sensation that he had to urinate and he tried to do so but was unsuccessful. Patient states he took a shower and bath to try to help stimulate urination was still unsuccessful and secondary to persistent pain and the inability urinate he comes in for evaluation [facility] Medical History Acute sinusitis, unspecified Acute urinary retention Alcohol use Benign essential hypertension Bruises easily Bruising Carotid arterial disease Cervical radiculopathy Chest pain Difficulty with CPAP use Heartburn HLD (hyperlipidemia) Leg cramps Migraine headache Prostate disease Sleep apnea Smoker Strain of right trapezius muscle Tobacco use disorder Home Medications calcium cmb no.1-vit [id number]-B12 120 mg-1,000 unit-10 mg tablet 1 tab PO DAILY SUPPLEMENT 06/30/19 [History Last Taken Unknown] multivitamin 1 tab PO DAILY SUPPLEMENT 06/30/19 [History Last Taken Unknown] aspirin 81 mg tablet,delayed release 81 mg PO DAILY #360 tabs 08/30/21 [Rx Last Taken Unknown] ascorbic acid (vitamin C) 500 mg capsule mg PO 10/31/21 [History Last Taken Unknown] amlodipine 5 mg tablet 5 mg PO DAILY HTN #90 tabs 04/10/22 [Rx Last Taken Unknown] lisinopril 20 mg tablet 20 mg PO DAILY HTN #90 tabs 04/10/22 [Rx Last Taken Unknown] tamsulosin 0.4 mg capsule 0.4 mg PO DAILY #90 caps 04/10/22 [Rx Last Taken Unknown] red yeast rice extract PO 1XD 04/11/22 [History Last Taken Unknown] omega 0-ngw-vls-fish oil 60 mg-90 mg-500 mg capsule (Fish Oil) 1 cap PO BID 04/11/22 [History Last Taken Unknown] meclizine 25 mg tablet 12.5 mg (1/2 x 25 mg) PO BID PRN dizziness #14 tabs 09/20/22 [Rx Last Taken Unknown] Allergy/AdvReac Type Severity Reaction Status Date / Time doxycycline Allergy Rash Verified 01/06/23 03:11 prednisone Allergy Rash Verified 01/06/23 03:11 atorvastatin AdvReac Other Verified 01/06/23 03:11 Dktsuyl-ESX-FhP Reductase AdvReac Other Verified 01/06/23 03:11 Inhibitor Family History Father Lung cancer Uncle Myocardial infarction Surgical History Carotid stenosis, left History of carotid endarterectomy Hx of esophagogastroduodenoscopy Hx of eye surgery S/P appendectomy S/P carotid endarterectomy (~08/2021) S/P colonoscopy Social History Smoking Status: Current every day smoker tobacco type: cigarettes second hand exposure: Yes alcohol intake: current substance use type: does not use caffeine: No what type of physical activity do you participate in: walking, running and weight training frequency: 3-4 times per week seatbelt use: always ROS ROS ED Constitutional Constitutional ED: Denies chills or fever(s) ENT ENT ED: Denies sore throat Cardiovascular Cardiovascular: Denies chest pain Respiratory/Chest Respiratory/Chest: Denies cough or dyspnea Gastrointestinal Gastrointestinal: Reports abdominal pain; Denies diarrhea, nausea or vomiting Genitourinary Genitourinary ED: Reports other Details: Positive urinary retention Musculoskeletal Musculoskeletal: Denies myalgias Integumentary Denies rash Neurologic Neurologic: Denies headache(s) Hematologic/Lymphatic Hematologic/Lymphatic: Denies easy bleeding or easy bruising EXAM Physical Exam Const Vital Signs: 01/06/23 03:06 01/06/23 03:35 01/06/23 03:35 Temperature 98.0 F 98.2 F Temperature Source Temporal Temporal Pulse Rate 82 82 Respiratory Rate 18 18 Blood Pressure 171/101 H 171/101 H Blood Pressure Mean 124 124 Pulse Ox 96 96 Oxygen Delivery Method Room Air Room Air Positive well nourished and well developed General Appearance ED: well developed; Negative for pallor HEENT HEENT Narrative: Normocephalic atraumatic Eyes PERRL and EOMs intact bilaterally General Eye ED: Negative for scleral icterus Neck supple Resp normal respiratory effort and clear to auscultation bilaterally Cardio regular rate and regular rhythm Rate: other Other Details: Heart is regular rate and rhythm without murmurs rubs or gallops GI GI Narrative: Patient has distention and organomegaly/firmness in the suprapubic and midline lower abdomen consistent with a distended bladder. There is pain with palpation at the site. The remainder of the exam is soft and nontender with normal active bowel sounds. No guarding rigidity or pulsatile mass Auscultation: normoactive bowel sounds Palpation: soft Narrative: Normal circumcised male without blood or discharge from the urethral meatus No testicular swelling No secondary soft tissue skin changes to suggest Fernanda's gangrene Back/Spine no CVA tenderness Extremity normal to inspection Neuro oriented x3, CN's II-XII intact bilaterally and no sensory deficits noted Sensorium / Orientation: alert Motor Exam: strength 5/5 throughout Psych mental status grossly normal Skin no rashes or lesions noted General Skin Exam: Negative for jaundice or pallor MDM MDM MDM Narrative Medical decision making narrative: Patient presented to the ER with report of acute urinary retention. He states that his last urination was around 9 PM. Differential diagnosis is acute urinary retention versus UTI versus pyelonephritis versus acute kidney injury versus prostatitis. At this time as patient has only had the inability urinate for approximately 6 hours my concern for acute kidney injury is low and I do not feel need for laboratory testing. Also urine sample was obtained and is clear and patient's had no dysuria and concern for UTI is low and do not feel there is need for UA. A bladder scan was performed and shows approximate 1200 mL of urine within the bladder consistent with his history and physical exam. A Mary catheter was placed to resolve the retention. Following this patient had resolution of his abdominal pain and the organomegaly and firmness on exam resolved as well. In order to ensure there is no return of retention the patient will have the Mary catheter kept in place and he will follow-up with urology for repeat evaluation History & Record Review Discussion w/independent historian: Patient and Significant other Discharge Plan Triage Chief Complaint: Complaint ED Provider: Bhavesh Giraldo Dx/Rx/DC Orders Clinical Impression: Acute urinary retention, Elevated PSA, HLD (hyperlipidemia) Instructions: ED Mary Catheter, Care, ED Urinary Retention, Male Prescriptions: No Action multivitamin Tablet 1 tab PO DAILY calcium cmb no.1-vit [id number]-KT-B12 120 mg-1,000 unit-10 mg tablet 120-1,000-10 mg-unit-mg tablet 1 tab PO DAILY ascorbic acid (vitamin C) 500 mg capsule PO meclizine 25 mg tablet 12.5 mg PO BID PRN (Reason: dizziness) Qty: 14 0RF aspirin 81 mg tablet,delayed release (DR/EC) 81 mg PO DAILY Qty: 360 0RF Hold Instructions: Resume on 09/13/21. amlodipine 5 mg tablet 5 mg PO DAILY Qty: 90 3RF lisinopril 20 mg tablet 20 mg PO DAILY Qty: 90 3RF tamsulosin 0.4 mg capsule 0.4 mg PO DAILY Qty: 90 3RF red yeast rice extract PO 1XD omega 1-rof-osm-fish oil [Fish Oil] 60-90-500 mg capsule 1 cap PO BID Primary Care Provider: Kenia Morrison Referrals: Jose Wing MD [Med Staff - Active Staff] - Kenia Morrison MD [Primary Care Provider] - Activity Restrictions/Additional Instructions: Leave the Mary catheter in place to prevent recurrent obstruction. Follow-up with urology on an outpatient basis to have the catheter removed and return to the ER should you have any further concerns
[2023-01-06 03:35] VITALS: BP 171/101; PULSE 82; RESP 18; TEMP 36.8; O2SAT 96
[2023-01-06 04:12] VITALS: BP 112/73; PULSE 76; RESP 16
== END 2023-01-06 04:15 | disposition home or self-care (01) ==
LOC: ED 03:55
PROVIDERS: Emergency Provider Emergency Medicine; PCP Internal Medicine; Visit Provider Emergency Medicine
DX: R33.9 Retention of urine, unspecified (principal); I73.9 Peripheral vascular disease, unspecified; R97.20 Elevated prostate specific antigen [PSA]; I10 Essential (primary) hypertension; E78.5 Hyperlipidemia, unspecified; F17.210 Nicotine dependence, cigarettes, uncomplicated; Z79.82 Long term (current) use of aspirin; Z79.899 Other long term (current) drug therapy
CPT/HCPCS: 51702; 99283

== ENCOUNTER → 2023-03-07 | Outpatient (CLI) | payer BC, SELFPAY ==
[2023-03-07 10:07] LABS: Absolute Lymphocyte Count 1.62 X10^3/uL (0.83-4.51); Absolute Neutrophil Count 6.3 X10^3/uL (2.0-7.7); Basophil# 0.23 X10^3/uL; Basophil% 2.5 % (0-1); Eosinophils% 7.6 % (0-5); Hematocrit 49.5 % (40-54); Hemoglobin 15.9 g/dL (13.0-16.5); Lymphocyte # 1.62 X10^3/ul (0.83-4.51); Lymphocyte % 17.5 % (19-41); Mean Corp Hgb Conc 32.1 g/dL (32-36); Mean Corpuscular Hgb 28.8 pg (27.0-32.0); Mean Corpuscular Volume 89.7 fL (80-94); Mean Platelet Vol. 9.4 fl (6.2-12.0); Monocyte% 4.3 % (0-10); NRBC Flagged by Analyzer 0 % (0-5); Neutrophil # 6.29 X10^3/uL (2.7-7.7); Neutrophil % 67.8 % (47-70); Platelet Count 284 K/mm3 (150-450); RBC Distribution Width CV 13.6 % (11.6-14.6); RBC Distribution Width SD 45.1 fl (35.1-43.9); Red Blood Count 5.52 M/mm3 (4.6-6.2); White Blood Count 9.3 K/mm3 (4.4-11.0)
[2023-03-07 10:50] LABS: ALB/GLOB Ratio 0.9 RATIO (0.9-2.4); AST(SGOT) 19 U/L (15-37); Alanine Aminotransfer ALT/SGPT 38 U/L (16-61); Albumin, Serum 3.5 g/dL (3.2-5.0); Alkaline Phosphatase 79 U/L (45-117); Anion Gap 3 (5-15); BUN 16 mg/dL (7-18); BUN/Creat Ratio 15.2 RATIO (10-20); Chloride 109 mmol/L (98-107); Cholesterol 235 mg/dL (200); Creatinine, Serum 1.05 mg/dL (0.70-1.30); EST Glomerular Filtration Rate 75 mL/min (>60); Est Glom Filt Rate - Afr Amer 91 mL/min (>60); Glucose 73 mg/dL (74-106); High Density Lipoprotein 35 mg/dL; PSA,Total- Diagnostic 8.13 ng/mL (0.0-4.0); Potassium 4.2 mmol/L (3.5-5.1); Protein, Total 7.5 g/dL (6.4-8.2); Sodium Level 138 mmol/L (136-145); Thyroid Stim Hormone (TSH) 2.14 uIU/mL (0.358-3.74); Triglycerides 221 mg/dL; Very Low Density Lipoprotein 44 mg/dL (5-40)
--- OUTSIDE RECORDS SUMMARY | 2023-03-07 11:22 | XMS RPT_ITS | CCD ---
Author Name Unknown Address [address] [facility] [address] [place] [address] Organization [facility] Care Team Providers Care Bee Tender Name Role Phone Bob Bashir PA-C Primary Care Provider [phone] Allergies Allergy Classification Reported Allergen(s) Allergy Type Date of Onset Reaction(s) Facility (2 sources) atorvastatin Drug Allergy 9 Myalgia [facility] Work Phone: (2 sources) [facility] Work Phone: (2 sources) Dust Allergy to substance 7 Intolerance [facility] Work Phone: (2 sources) HMG-CoA reductase inhibitor Drug Intolerance 9 Intolerance [facility] Work Phone: (2 sources) predniSONE Drug Allergy 8 [facility] Work Phone: (2 sources) Delgado Drug Allergy 7 Intolerance [facility] Work Phone: Medications Completed/Discontinued Medications Medication Drug Class(es) Dates Sig (Normalized) Sig (Original) amLODIPine 5 mg oral tablet (2 sources) Dihydropyridine Calcium Channel Yady Start: 05-03-2021 take 1 tablet by mouth once daily amLODIPine (NORVASC) 5 mg tablet Indications: Hypertension, essential Take 1 tablet by mouth once daily. 90 tablet 0 05/03/2021 Active Problems Active Problems Problem Classification Problem Date Documented Date Episodic/Chronic Alcohol-related disorders (2 sources) Alcohol abuse; Translations: [Alcohol abuse, uncomplicated] Onset: 09-29-2009 09-29-2009 Chronic Chronic obstructive pulmonary disease and bronchiectasis (2 sources) Chronic obstructive lung disease; Translations: [Chronic obstructive pulmonary disease, unspecified] Onset: 06-15-2009 09-29-2009 Chronic Disorders of lipid metabolism (2 sources) Hyperlipidemia; Translations: [Hyperlipidemia, unspecified] Onset: 01-07-2010 01-07-2010 Chronic Diverticulosis and diverticulitis (2 sources) Diverticulitis of sigmoid colon; Translations: [Diverticulitis of large intestine without perforation or abscess without bleeding] Onset: 09-16-2020 09-16-2020 Chronic Esophageal disorders (2 sources) Gastro-esophageal reflux disease with esophagitis; Translations: [Gastroesophageal reflux disease with esophagitis] 03-28-2017 Chronic Essential hypertension (2 sources) Essential hypertension; Translations: [Essential (primary) hypertension] Onset: 06-15-2009 09-26-2017 Chronic Headache; including migraine (2 sources) Migraine; Translations: [Migraine, unspecified, not intractable, without status migrainosus] Onset: 09-29-2009 09-29-2009 Chronic Occlusion or stenosis of precerebral arteries (2 sources) Carotid artery stenosis; Translations: [Occlusion and stenosis of unspecified carotid artery] 06-11-2020 Chronic Other male genital disorders (2 sources) Secondary erectile dysfunction; Translations: [Male erectile dysfunction, unspecified] Onset: 01-07-2020 01-07-2020 Chronic Other screening for suspected conditions (not mental disorders or infectious disease) (5 sources) Colonoscopy abnormal; Translations: [Abnormal findings on diagnostic imaging of other parts of digestive tract] Onset: 03-06-2017 03-08-2017 Episodic Residual codes; unclassified (2 sources) Obstructive sleep apnea syndrome; Translations: [Obstructive sleep apnea (adult) (pediatric)] Onset: 10-02-2018 10-02-2018 Chronic Substance-related disorders (2 sources) Smoker; Translations: [Nicotine dependence, unspecified, uncomplicated] Onset: 06-15-2009 09-29-2009 Chronic Transient cerebral ischemia (2 sources) Transient cerebral ischemia; Translations: [Transient cerebral ischemic attack, unspecified] Onset: 05-03-2010 05-03-2010 Chronic Past or Other Problems Problem Classification Problem Date Documented Da te Episodic/Chronic Abdominal hernia (2 sources) Inguinal hernia; Translations: [Unilateral inguinal hernia, without obstruction or gangrene, not specified as recurrent] Onset: 09-29-2009 09-29-2009 Episodic Conditions associated with dizziness or vertigo (4 sources) Vertigo; Translations: [Dizziness and giddiness] Onset: 04-11-2010 04-11-2010 Episodic Other lower respiratory disease (2 sources) Nodule of lung; Translations: [Solitary pulmonary nodule] Onset: 03-12-2021 03-12-2021 Episodic Other nutritional; endocrine; and metabolic disorders (2 sources) Overweight; Translations: [Overweight] Onset: 09-29-2009 09-26-2017 Episodic Spondylosis; intervertebral disc disorders; other back problems (2 sources) Neck pain; Translations: [Cervicalgia] Onset: 05-12-2018 05-12-2018 Episodic Results Test Name Value Interpretation Reference Range Facil ity Encounters Encounter Date Encounter Type Care Provider Facility Start: 06-24-2021 Telephone encounter M Benigno Bashir PA-C Work Phone: [facility] Procedures Date Procedure Procedure Detail Performing Clinician Start: 09-26-2017 Adult depression scr eening assessment Stacy Gibbons APRN.CNP Work Phone: Start: 03-06-2017 Colonoscopy Stacy taylor APRN.CNP Work Phone: Plan of Treatment Date Care Activity Detail Author Start: 03-06-2027 Colonoscopy COLONOSCOPY [facility] Start: 03-06-2027 COLORECTAL CANCER SCREENING COLORECTAL CANCER SCREENING [facility] Start: 06-24-2026 LIPID SCREEN LIPID SCREEN [facility] Start: 03-15-2025 LIPID SCREEN LIPID SCREEN [facility] Start: 06-24-2024 DIABETES SCREEN DIABETES SCREEN [facility] Start: 04-01-2023 PROSTATE CANCER SCRE ENING DISCUSSION PROSTATE CANCER SCREENING DISCUSSION [facility] Start: 03-15-2023 DIABETES SCREEN DIABETES SCREEN [facility] Start: 06-08-2022 Influenza vaccination LUNG CANCER SC REENING [facility] Start: 11-03-2021 Influenza vaccination INFLUENZA (Sea son Ended) [facility] Start: 11-02-2021 ANNUAL PCP TEAM EXPERIMENTAL OUTBOARD MOTORS MECHANIC ARIELLA DISEASE VISIT ANNUAL PCP TEAM CHRONIC DISEASE VISIT [facility] Start: 09-16-2021 COVID-19 VACCINE (1) COVID-19 VACCIN E (1) [facility] Immunizations Immunization Date Immunization Notes Care Provider Fa yrlee 10-24-2020 zoster vaccine recombinant Stacy Gibbons APRN.CNP Work Phone: [facility] 01-24-2013 pneumococcal polysaccharide vaccine, 23 valent Stacy Gibbons APRN.PLUG AND MOLD FINISHER Work Phone: [facility] 06-15-2009 tetanus toxoid, redu kenny diphtheria toxoid, and acellular pertussis vaccine, adsorbed Stacy Gibbons APRN.PLUG AND MOLD FINISHER Work Phone: [facility] Payers Date Payer Category Payer Private Health Insurance [employer] A ETNA CHOICE POS II [id number] 2017-Present [phone] [address] [place] [address] POS [id number] Social History Date Type Detail Facility Start: 03-05-1976 [facility] Work Phone: Start: 03-05-1976 History of tobacco use Cigarette Smo ker [facility] Work Phone: Start: 06-08-2021 Alcohol intake Current drinke r of alcohol (finding) [facility] Start: 06-08-2021 Alcohol intake [facility] Start: 01-24-2013 History SDOH Alcohol Comment Hx of 6 beers daily [facility] Start: 01-24-2013 Tobacco Comment started smokin g 16yo-usually 1 PPD [facility] Start: 1960 Sex Assigned At Not on file C [facility] Start: 05-29-2021 End: 06-08-2021 Exposure to SARS-CoV-2 (event) Not sure [facility] Clinical Notes 03-08-2017 to 06-24-2021 Telephone Encounter - Noemi Sewell - 06/24/2021 4:10 PM EDTTelephone Encounter - Bob Bashir PA-C - 06/24/2021 3:59 PM EDT Note Date & Type Note Facility 06-24-2021 Miscellaneous Notes Unable to reach patient left detailed message on identified VM. Faxed PSA results to Dr. Wing's office as well. Please advise PSA took a bit of a jump. Sees Dr. Wing: please forward results to his office. Otherwise labs are stable or WNL. Thanks, Parmjit Bashir PA-C documented in this encounter [facility] 06-09-2021 Miscellaneous Notes Spoke with patient regarding previously discussed LDCT results category 3 with follow-up recommended in 6 months to evaluate stability of the RLL 11.7 mm nodule and additional LLL nodules with CT and appointment. Advised that schedulers will be reaching out to schedule this appointment. He comprehends and agrees with the plan. Stacy Gibbons APRN.SANDEE documented in this encounter [facility] 06-08-2021 Note HNO ID: [id number] Author: Stacy Gibbons APRN.SANDEE Service: ? Author Type: Nurse Practitioner Type: Progress Notes Filed: 06/08/2021 10:50 PM Note Text: Chief Complaint: 3 months follow-up from LDCT scan dated 03/02/2021 for LUNG RADS Category finding of 4A RLL 11.7 mm History of Present Illness: Jim Cooper is a 61 year old male who is presenting today for lung nodules follow-up. Nodule was found through lung cancer screening on LDCT. Patient has a PMH significant for GERD, HLD, HTN, MELODY, carotid stenosis, and pneumonia 2018. Patient is a active smoker with a 44 pack year history. Currently still smoking 1 PPD daily. Since the patient's last visit the patient has not had new medical issues or hospitalizations. Denies SOB, states he can tolerate ambulating > 1 mile, tolerates working out on the treadmill, recently has been off his routine exercise schedule. Notes seasonal allergies mild nasal drainage, post nasal drainage. Admits to occasional cough with clear mucus, states he uses Silver sheild natural OTC supplement for allergies notes improvement of mild sinusitis. Denies recent URIs, hospitalization for pneumonia,hemoptysis, Fevers/chills, wheezing, chest tightness, chest palpitations, use of inhalers, chest pain, LE edema,unintentional wt loss,altered appetite or neck axillary lumps. 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 Gamble-repeat in - EGD 03/20/14 esophagitis - LAPAROSCOPIC APPENDECTOMY 12-06-10 ruptured appendix - PAST SURGICAL HISTORY OF Left eye surgery. pterygium removed - TEAEC W/PATCH GRF CAROTID VERTB SUBCLAV NECK INC 12-28-11 LEFT Family Hx: FAMILY HISTORY Problem Relation Age of Onset - Alzheimer's Disease Mother - Hypertension Mother - Cancer Father lung - Ischemic Heart Disease Paternal Uncle [place] Allergies: ALLERGIES Allergen Reactions - Atorvastatin Myalgia - Doxycycline Hives - Dust Intolerance - Delgado Intolerance - Prednisone Hives - Ewgbreo-Ivx-Gsa Red* Intolerance myalgias Social History Tobacco Use: 1 packs/day, for 44 years. Types: Cigarettes (started smoking 16yo-usually 1 PPD) Review Of Systems: See HPI for ROS All of the remainder systems were reviewed and negative. PHYSICAL EXAMINATION: BP 138/81 Pulse 75 Ht 5' 7 (1.70m) Wt 179 lb (81.2kg) SpO2 97% BMI 28.03 kg/(m2). General appearance: Well appearing, alert, in no acute distress, well-hydrated, well nourished. Skin: Skin color normal, no suspicious rashes or lesions Oropharynx: Lips, mucosa normal, oropharynx normal Neck: Supple, no adenopathy Lungs: Lungs clear to auscultation. No wheezing, rhonchi, rales. Heart: RRR without murmur, gallop, or rubs. No ectopy Musculoskeletal: No joint swelling, deformity, or tenderness Peripheral pulses: Pulses palpable, radial=4/4 Neuro: Alert AND oriented X 3 Data Review I have visually reviewed imaging and testing below CT imaging done today was reviewed independently by practitioner and awaiting radiology review. CT chest 06/08/[address] chest 03/02/2021 RLL 11.7 mm nodule stable in size, however mild change in nodule consistency New LLL 4-5 mm GG nodule along the major fissure LDCT scan 03/02/2021 LungRADS category: 4A LungRADS modifier: None LungRADS 0 reason: n/a Nodule 1: ?This Solid nodule is located in the Right Lower Lobe on slice number 122 with an average diameter of 11.7 mm (12.8 mm x 10.6 mm). ?New Nodule 2: ?This Solid nodule is located in the Left Upper Lobe on slice number 143 with an average diameter of 3.5 mm (3.8 mm x 3.2 mm). ?Stable Nodule 3: ?This Perifissural nodule is located in the Left Lower Lobe on slice number 154 with an average diameter of 4.9 mm (6.0 mm x 3.8 mm). ? Stable Other lung nodule comments: ?None. Other findings: ?The central airways are patent without endobronchial lesion. ?There is mild diffuse bronchial wall thickening. ?Mild linear atelectasis at the the lung bases. ?No focal consolidation. ?The imaged thyroid gland is unremarkable. ?No thoracic lymphadenopathy. ?Mild atherosclerotic calcifications of the thoracic (more content not included)... [facility] 03-09-2021 Note HNO ID: [id number] Author: Adalgisa Reynolds APRN.PLUG AND MOLD FINISHER Service: ? Author Type: Nurse Practitioner Type: Progress Notes Filed: 03/09/2021 2:56 PM Note Text: MULTI DISCIPLINARY LUNG CANCER SCREENING TUMOR BOARD March 09, 2021 Presenting Providers: Adalgisa El CNP Providers present: Dr. Jef Godoy, Dr. Mark Bess, Jacklyn Hardy CNP, Dr. Errol Tilley, Khushi Hughes, Julieta Cooper [phone] Diagnosis: RLL 11.7 mm lung nodule new since CT chest imaging 2018. Outcome: Jim Cooper's low-dose CT scan was reviewed by the providers in attendance. Based on the current evidence of practice, the collaborative recommendation would be repeat imaging in three months with LDCT. These recommendations will be communicated by the presenting providers. The recommendation of the tumor board is based upon the information and personnel available at the time of the tumor board presentation and discussion. This recommendation is not mandatory, as the treating physician and other specialists may be in possession of additional information or have alternative viewpoints that could lead to another treatment plan for a particular patient. Adalgisa Reynolds APRN.SANDEE [facility] 03-02-2021 Note HNO ID: [id number] Author: MARIE Sultana Service: Radiology Author Type: Technologist Type: Progress Notes Filed: 03/02/2021 10:20 AM Note Text: Radiology Service Progress Note PATIENT NAME: Jim Cooper DATE OF SERVICE: March 02, 2021 TIME: 10:20 AM PATIENT IDENTITY VERIFICATION COMPLETED USING TWO (2) IDENTIFIERS: Name and Date of confirmed by patient verbally and Name and Date of confirmed by identification band. FALL SCREENING: Has the patient had 2 falls in the last year or 1 fall with injury or currently using an Ambulatory Assistive Device (Walker, Cane, Wheelchair, Crutches, etc.)? No PATIENT GENDER DATA: Male PATIENT RELEVANT IMPLANT DATA REVIEWED: Not Applicable RADIOLOGY DEPARTMENT: CT; Exam(s) Completed: Chest PERIPHERAL IV DATA: Not applicable SIGNED BY: MARIE Sultana March 02, 2021 10:20 AM [facility] 03-02-2021 Note HNO ID: [id number] Author: Adalgisa Reynolds APRN.PLUG AND MOLD FINISHER Service: ? Author Type: Nurse Practitioner Type: Progress Notes Filed: 03/02/2021 9:58 AM Note Text: LUNG SCREENING VISIT PRIMARY CARE PHYSICIAN: Bob Bashir PA-C PULMONARY PROVIDER: None Results will be communicated via letter or electronic record if applicable. Visit Delivery: In Person Patient Visit Type: New to Screening Results will be communicated via letter or electronic record. REQUESTER: The referring provider advised the patient to have screening. HISTORY OF PRESENT ILLNESS: Jim Cooper is a 60 year old active smoker who presents for lung screening. He is a fully active gentleman and works out 3-4 days per week using the treadmill and upper body cable machine. Denies GATES. He had an upper respiratory infection last week but symptoms have now decreased. He still has a productive cough with clear sputum at times. Denies fever, chills, night sweats, hemoptysis, SOB, CP. Respiratory symptoms include: SOB: No Chest tightness: No Coughing: Yes: With mucus Clear Hemoptysis: No Wheezing: No Fever/Chills: No Recent Respiratory Infection: Yes Unintentional weight loss: No Last 6 Encounter Wt Readings: Date: Wt: 03/02/2021 81.2 kg (179 lb) 11/02/2020 78.9 kg (174 lb) 09/16/2020 78 kg (172 lb) 08/23/2020 78.5 kg (173 lb) 08/20/2020 80.3 kg (177 lb) 05/08/2020 85.7 kg (189 lb) ECOG PERFORMANCE STATUS: 0- Fully active, able to carry on all pre-disease performance w/o restriction. Modified Medical Research Eyak Dyspnea Scale (MMRC) I only get breathless with strenous exercise 0 Lung Cancer Risk Factors: 1.Tobacco Use: Start Age 16, Quit Age N/A , Average packs per day 1, Pack Years 42. 2. Passive Smoke Exposure: Yes as a child and as an adult. 3. Personal hx of malignancy: No. 4. 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 5. Race: White. 6. Education:Highschool graduate 7. BMI:Body mass index is 28.04 kg/m?. 8. COPD: No 9. Pneumonia in the past 5 years: Yes 10. Is there a history of lung cancer in a first degree relative? Yes. 11. Is there a history of lung cancer in a non first degree relative? No 12. Is there a history of any other cancer in a first degree relative? No. PAST MEDICAL HISTORY Diagnosis Date - Alcohol dependence (HCC) - BPPV (benign paroxysmal positional vertigo) 2012 - Carotid stenosis - COPD (chronic obstructive pulmonary disease) (HCC) - Current smoker - GERD (gastroesophageal reflux disease) - Hyperlipidemia - Hypertension - Migraine headache - MELODY (obstructive sleep apnea) [facility] PAST SURGICAL HISTORY Procedure Laterality Date - COLONOSCOPY 06-15-06 normal-Dr. Gamble-repeat in - EGD 03/20/14 esophagitis - INSERT CATH,ART,PERCUT,SHORTTERM 12-28-11 - LAPAROSCOPY, SURGICAL, APPENDECTOMY 12-06-10 ruptured appendix - PAST SURGICAL HISTORY OF Left eye surgery. pterygium removed - THROMBOENDARTECTMY NECK,NECK INCIS 12-28-11 LEFT FAMILY HISTORY Problem Relation Age of Onset - Alzheimer's Disease Mother - Hypertension Mother - Cancer Father lung - Ischemic Heart Disease Paternal Uncle [place] amLODIPine (NORVASC) 5 mg tablet Take 1 tablet by mouth once daily. lisinopril (ZESTRIL, PRINIVIL) 20 mg tablet Take 1 tablet by mouth once daily. benzonatate (TESSALON PERLES) 100 mg capsule Take 1 capsule by mouth three times daily as needed for Cough. CPAP Autopap 8-20 cm H2O, Heat Humidity, suitable mask, Lifetime supplies, opt Chinstrap, G47.33. sildenafil (VIAGRA) 50 mg tablet One tab 30 minutes prior to activity sucralfate (CARAFATE) 1 gram tablet Take 1 tablet by mouth three times daily before meals. [place]-3 Fatty Acids-Vitamin E (FISH OIL) 1,000 mg cap Take 1 capsule by mouth. aspirin 81 mg chewable tablet Take 1 tablet by mouth once daily. ALLERGIES Allergen Reactions - Atorvastatin Myalgia - Doxycycline Hives - Dust Intolerance - Delgado Intolerance - Prednisone Hives - Tqfuugx-Gpx-Nzg Red* Intolerance myalgias The medications and allergies were reviewed and reconciled for this patient and deemed current. Health Maintenance Immunization History Administered Date(s) Administered Pneumovax 01/24/2013 Tdap (Age 7+) 06/15/2009 Zoster Recombinant (Shingrix) 10/24/2020 Colonoscopy: 09/27/2016 Mammogram: DATA REVIEW I have directly visualized the testing documented: Prior Imaging: CT: Yes 2018 Abnormal. CXR: Yes 2018 Normal. PHYSICAL EXAM: Deferred ASSESSMENT and RECOMMENDATIONS: 1. Screening for lung cancer: Six year risk for lung cancer: 5.2% Source: Everyclick I have determined that the patient is eligible for a low dose CT based on age, absence of signs or symptoms of lung cancer, and total pack years: Yes. The patient and I engaged in shared decision making, including the use of one or more decision aids, to include (more content not included)... [facility] 11-02-2020 Note HNO ID: [id number] Author: Bob Bashir PA-C Service: ? Author Type: Physician Garage Mechanic Type: Progress Notes Filed: 11/02/2020 5:16 PM Note Text: 60 year old male with c/o wart right middle finger. OTC treatment no benefit. HISTORIES FAMILY HISTORY Problem Relation Age of Onset - Alzheimer's Disease Mother - Hypertension Mother - Cancer Father lung - Ischemic Heart Disease Paternal Uncle RI PAST MEDICAL HISTORY Diagnosis Date - Alcohol dependence ([facility]) - BPPV (benign paroxysmal positional vertigo) 2012 - Carotid stenosis - COPD (chronic obstructive pulmonary disease) ([facility]) - Current smoker - GERD (gastroesophageal reflux disease) - Hyperlipidemia - Hypertension - Migraine headache - MELODY (obstructive sleep apnea) [facility] PAST SURGICAL HISTORY Procedure Laterality Date - COLONOSCOPY 06-15-06 normal-Dr. Gamble-repeat in - EGD 03/20/14 esophagitis - INSERT CATH,ART,PERCUT,SHORTTERM 12-28-11 - LAPAROSCOPY, SURGICAL, APPENDECTOMY 12-06-10 ruptured appendix - PAST SURGICAL HISTORY OF Left eye surgery. pterygium removed - THROMBOENDARTECTMY NECK,NECK INCIS 12-28-11 LEFT Social History Tobacco Use - Smoking status: Current Every Day Smoker Packs/day: 1.00 Years: 30.00 Pack years: 30.00 Types: Cigarettes - Smokeless tobacco: Never Used - Tobacco comment: started smoking 16yo-usually 1 PPD Substance Use Topics - Alcohol use: Yes Alcohol/week: 60.0 standard drinks Types: 24 Cans of Beer (12oz) per week Comment: Hx of 6 beers daily - Drug use: No ACTIVE PROBLEM LIST Hypertension, Essential Smoker Copd (Chronic Obstructive Pulmonary Disease) ([facility]) Routine Physical Examination Alcohol Abuse Overweight Migraine Headache Hernia, Inguinal Hyperlipidemia Vertigo Tia (Transient Ischemic Attack) Carotid Stenosis Gastroesophageal Reflux Disease With Esophagitis Abnormal Colonoscopy Neck Pain Dizziness and Giddiness Melody (Obstructive Sleep Apnea) Elevated Psa Ed (Erectile Dysfunction) of Organic Origin Sigmoid Diverticulitis Current Outpatient Medications Medication Sig Dispense Refill - lisinopril (ZESTRIL, PRINIVIL) 20 mg tablet Take 1 tablet by mouth once daily. 90 tablet 0 - amLODIPine (NORVASC) 5 mg tablet Take 1 tablet by mouth once daily. 90 tablet 0 - benzonatate (TESSALON PERLES) 100 mg capsule Take 1 capsule by mouth three times daily as needed for Cough. 60 capsule 0 - CPAP Autopap 8-20 cm H2O, Heat Humidity, suitable mask, Lifetime supplies, opt Chinstrap, G47.33. 1 Device 0 - sildenafil (VIAGRA) 50 mg tablet One tab 30 minutes prior to activity 6 tablet 5 - sucralfate (CARAFATE) 1 gram tablet Take 1 tablet by mouth three times daily before meals. 90 tablet 1 - [place]-3 Fatty Acids-Vitamin E (FISH OIL) 1,000 mg cap Take 1 capsule by mouth. - aspirin 81 mg chewable tablet Take 1 tablet by mouth once daily. 0 No current facility-administered medications for this visit. SPIROMETRY Never done HIV SCREENING Never done DEPRESSION SCREENING due on 09/26/2018 LUNG CANCER SCREENING due on 05/25/2019 DTAP,TDAP,TD(2 - Td or Tdap) due on 06/16/2019 EXAM: BP 128/66 Pulse 72 Resp 16 Wt 78.9 kg (174 lb) BMI 27.47 kg/m? Pleasant adult man in no acute distress. Alert and oriented all spheres. Normal affect and cognition. Speech normal. No deficits to learning or comprehension. Skin warm, dry, pink to lips and nailbeds. Normal turgor. Respirations regular and unlabored. Extrem: no clubbing or cyanosis. Extremities are warm and pink with prompt capillary refill. Large wart right finger 2 cmx 2cm ASSESSMENT/PLAN: 1. Viral wart on finger - ICD9: 078.10, ICD10: B07.9 We discussed risks and benefits of cryotherapy as well as other options for wart treament: agreed to proceed. 10 sec freeze twice to each area. Advised of expected course F/u in 2 weeks if not resolved. Bob Bashir PA-C [facility] 09-22-2020 Note HNO ID: [id number] Author: Paula Paz PA-C Service: ? Author Type: Physician Garage Mechanic Type: Progress Notes Filed: 09/22/2020 10:59 AM Note Text: Jim Cooper is a 60 year old current or former smoker. Patient has smoking history of: Social History Tobacco Use Smoking status: Current Every Day Smoker Packs/day: 1.00 Years: 30.00 Pack years: 30 Types: Cigarettes Smokeless tobacco: Never Used Tobacco comment: started smoking 16yo-usually 1 PPD Upon review of chart and last provider note the patient appears to have no unintentional weight loss, new or concerning cough or hemoptysis. Last 12 Encounter Wt Readings: Date: Wt: 09/16/2020 78 kg (172 lb) 08/23/2020 78.5 kg (173 lb) 08/20/2020 80.3 kg (177 lb) 05/08/2020 85.7 kg (189 lb) 01/02/2019 86.3 kg (190 lb 3.2 oz) 10/31/2018 85.3 kg (188 lb) 10/02/2018 84.4 kg (186 lb) 09/24/2018 83.7 kg (184 lb 8.4 oz) 09/06/2018 84.4 kg (186 lb) 07/30/2018 85.3 kg (188 lb) 04/29/2018 84.8 kg (187 lb) 04/19/2018 84.4 kg (186 lb) No CT chest imaging in the past year and no recent CXR requiring follow-up. Upon review of medical record, patient has no known health conditions that substantially limit life expectancy or the ability to have curative intent treatment. PAST MEDICAL HISTORY Diagnosis Date - Alcohol dependence (HCC) - BPPV (benign paroxysmal positional vertigo) 2012 - Carotid stenosis - COPD (chronic obstructive pulmonary disease) (HCC) - Current smoker - GERD (gastroesophageal reflux disease) - Hyperlipidemia - Hypertension - Migraine headache - MELODY (obstructive sleep apnea) [facility] After chart review patient appears eligible for lung cancer screening and order and scheduling request will be signed and sent. At the Shared Decision Making (SDM) Visit the patient's smoking history will be verified and they will be assessed for any current symptoms that may be concerning for lung cancer as well as willingness and ability to tolerate curative intent treatment if a cancer is found. If patient is determined to be eligible and desires to move forward with the LDCT for lung cancer screening they will be scheduled to have this done on the same day and immediately following the SDM visit. Paula Paz PA-C September 22, 2020 [facility] 09-16-2020 Note HNO ID: [id number] Author: Bob Bashir PA-C Service: ? Author Type: Physician Garage Mechanic Type: Progress Notes Filed: 09/19/2020 8:47 PM Note Text: 60 year old male with c/o here for annual wellness exam and chronic priblem review. Current concerns: ACTIVE PROBLEM LIST Hypertension, Essential HTN: Current meds: Lisinopril 20 mg daily Amlodipine 5 mg daily ASA 81 mg daily Patient is compliant with meds Yes Monitors bp at home: Yes. If yes, readings: Checks in evening 140/76-82 after work out, after resting 116/70 Denies side effects: No. Chest pain: No. Dyspnea: No. Edema: No. Palpitations: No. Syncope: No. Headache: Yes. Dizziness: No. Works out on treadmill and weights daily Last 3 Encounter BP Readings: Date: BP: 08/23/2020 132/60 08/20/2020 140/82 05/08/2020 148/78 Last 2 Encounter Wt Readings: Date: Wt: 08/23/2020 78.5 kg (173 lb) 08/20/2020 80.3 kg (177 lb) Tia (Transient Ischemic Attack) Carotid Stenosis Vertigo Dizziness and Giddiness Migraine Headache 06/09/20 Carotid Duplex Romario Bronson MD: irregular plaque KATIE 50-66% stenosis, < 50% RECA, <50% LICA + LECA 12/29/2011 left carotid endarterectomy for high-grade stenosis. Presented with clumsiness of his left hand. CT angiogram suggested 50% narrowing on the right and 80% narrowing on the left. 05/25/16 Carotid US: no progression of extracranial carotid artery occlusive disease with 60-79% stenosis on the right. Stable left carotid endarterectomy with 20-39% stenosis. 08/05/18 Carotid US Romario Bronson MD: irregular plaque IZABEL and REC. 70% stenosis IZABEL, 50% REC; <50% on left. Hyperlipidemia AHA 10 year CVE risk 25% Current medication Fish oil Prior meds Atorvastatin Pravastatin Rosuvastatin Simvastatin Observing low cholesterol high fiber diet Yes Last 2 Lipids: Component Latest Ref Rng AND Units 09/06/2018 03/15/2020 Cholesterol, Total <200 mg/dL 237 (H) Triglyceride <150 mg/dL 144 HDL Cholesterol >39 mg/dL 39 (L) LDL Cholesterol <100 mg/dL 169 (H) Non HDL Cholesterol <130 mg/dL 198 (H) Fasting Time hrs 12 VLDL Cholesterol <30 mg/dL 29 TC:HDL Ratio <5.10 6.08 (H) LDL:HDL Ratio <2.54 4.33 (H) Total Cholesterol, Nonfasting <200 mg/dL 241 (H) Triglycerides, Nonfasting <150 mg/dL 255 (H) HDL Cholesterol, Nonfasting >39 mg/dL 36 (L) LDL Cholesterol, Nonfasting <100 mg/dL 154 (H) Non HDL Cholesterol, Nonfasting <130 mg/dL 205 (H) VLDL Cholesterol, Nonfasting <30 mg/dL 51 (H) Total Chol/HDL Ratio, Nonfasting <5.10 mg/dL 6.69 (H) LDL/HDL Ratio, Nonfasting <2.54 mg/dL 4.28 (H) Smoker: was down to 1/2 PPD and a lot of stress at work so back up to Copd (Chronic Obstructive Pulmonary Disease) (Hcc) Coughs every on ce in awhile from smoking. No SOB, wheezing. Alcohol Abuse Since last visit no change: 4-6 beers/ day week, more weekend. Overweight Hernia, Inguinal: pain after lifting weights. Several docs have examined since without evidence. No pain or bulging. Gastroesophageal Reflux Disease With Esophagitis Current medication: none Current symptoms: none. Last Mg level if on PPI chronically: n/a. Last EGD: 03/22 esophagitis/ gastritis. Heartburn is controlled: Yes. Bloody or black stools: No. Bowel changes: No. Abnormal Colonoscopy Neck Pain: good Melody (Obstructive Sleep Apnea) 10/02/18 PSG with severe MELODY: AHI 6.4, HAYDEN 1.0, RERA 13.1 Couldn't tolerate CPAP over 2 months of steady Lost weight and snoring dramatically increased. Sleeps well 7-8h, feels refreshed 5/7 days Elevated Psa Saw [facility] nurse for physical last year PSA was elevated Sent to Dr. Wing [facility] Prostate Bx with negative records. Bled for several days after. 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 HISTORIES FAMILY HISTORY Problem Relation Age of Onset Alzheimer's Disease Mother Hypertension Mother Cancer Father lung Ischemic Heart Disease Paternal Uncle [place] PAST MEDICAL HISTORY Diagnosis Date Alcohol dependence (HCC) BPPV (benign paroxysmal positional vertigo) 2012 Carotid stenosis COPD (chronic obstructive pulmonary disease) (HCC) Current smoker GERD (gastroesophageal reflux disease) Hyperlipidemia Hypertension Migraine headache MELODY (obstructive sleep apnea) DME [facility] PAST SURGICAL HISTORY Procedure Laterality Date COLONOSCOPY 06-15-06 normal-Dr. Gamble-repeat in EGD 03/20/14 esophagitis INSERT CATH,ART,PERCUT,SHORTTERM 12-28-11 LAPAROSCOPY, SURGICAL, APPENDECTOMY 12-06-10 ruptured appendix PAST SURGICAL HISTORY OF Left eye surgery. pterygium removed THROMBOENDARTECTMY NECK,NECK INCIS 12-28-11 LEFT Social History Tobacco Use Smoking status: Current Every Day Smoker Packs/day: 1.00 Years: 30.00 Pack years: 30.00 Types: Cigarettes Smokeless (more content not included)... [facility] 08-23-2020 Note HNO ID: [id number] Author: Bob Bashir PA-C Service: ? Author Type: Physician Garage Mechanic Type: Progress Notes Filed: 08/24/2020 6:57 AM Note Text: 60 year old male with c/o Fever, chills aches which started 5 days ago. Tmax 103F CARUSO top of head. Post nasal drainage. No sinus pressure. Low appetite. Stools loose/ watery since start Augmentin Had allergy sx which preceded, started by being at grandson's after yard was mowed, itchy eyes, nasal drip. Denies cough except from drainage. Continues 4-6 beers/ day week, more weekend. HISTORIES FAMILY HISTORY Problem Relation Age of Onset - Alzheimer's Disease Mother - Hypertension Mother - Cancer Father lung - Ischemic Heart Disease Paternal Uncle [place] PAST MEDICAL HISTORY Diagnosis Date - Alcohol dependence (HCC) - BPPV (benign paroxysmal positional vertigo) 2012 - Carotid stenosis - COPD (chronic obstructive pulmonary disease) ([facility]) - Current smoker - GERD (gastroesophageal reflux disease) - Hyperlipidemia - Hypertension - Migraine headache - MELODY (obstructive sleep apnea) DME [facility] PAST SURGICAL HISTORY Procedure Laterality Date - COLONOSCOPY 06-15-06 normal-Dr. Jabour-repeat in - EGD 03/20/14 esophagitis - INSERT CATH,ART,PERCUT,SHORTTERM 12-28-11 - LAPAROSCOPY, SURGICAL, APPENDECTOMY 12-06-10 ruptured appendix - PAST SURGICAL HISTORY OF Left eye surgery. pterygium removed - THROMBOENDARTECTMY NECK,NECK INCIS 12-28-11 LEFT Social History Tobacco Use - Smoking status: Current Every Day Smoker Packs/day: 1.00 Years: 30.00 Pack years: 30.00 Types: Cigarettes - Smokeless tobacco: Never Used - Tobacco comment: started smoking 16yo-usually 1 PPD Substance Use Topics - Alcohol use: Yes Alcohol/week: 60.0 standard drinks Types: 24 Cans of Beer (12oz) per week Comment: Hx of 6 beers daily - Drug use: No ACTIVE PROBLEM LIST Hypertension, Essential Smoker Copd (Chronic Obstructive Pulmonary Disease) ([facility]) Routine Physical Examination Alcohol Abuse Overweight Migraine Headache Hernia, Inguinal Hyperlipidemia Vertigo Tia (Transient Ischemic Attack) Carotid Stenosis Gastroesophageal Reflux Disease With Esophagitis Abnormal Colonoscopy Neck Pain Dizziness and Giddiness Melody (Obstructive Sleep Apnea) Elevated Psa Ed (Erectile Dysfunction) of Organic Origin Current Outpatient Medications Medication Sig Dispense Refill - amoxicillin-clavulanic acid (AUGMENTIN) 875-125 mg per tablet Take 1 tablet by mouth twice daily for 10 days. 20 tablet 0 - lisinopril (ZESTRIL, PRINIVIL) 20 mg tablet Take 1 tablet by mouth once daily. 90 tablet 0 - amLODIPine (NORVASC) 5 mg tablet Take 1 tablet by mouth once daily. 90 tablet 0 - CPAP Autopap 8-20 cm H2O, Heat Humidity, suitable mask, Lifetime supplies, opt Chinstrap, G47.33. 1 Device 0 - sildenafil (VIAGRA) 50 mg tablet One tab 30 minutes prior to activity 6 tablet 5 - sucralfate (CARAFATE) 1 gram tablet Take 1 tablet by mouth three times daily before meals. 90 tablet 1 - [place]-3 Fatty Acids-Vitamin E (FISH OIL) 1,000 mg cap Take 1 capsule by mouth. - aspirin 81 mg chewable tablet Take 1 tablet by mouth once daily. 0 - benzonatate (TESSALON PERLES) 100 mg capsule Take 1 capsule by mouth three times daily as needed for Cough. 60 capsule 0 No current facility-administered medications for this visit. COVID-19 VACCINE(1) Never done SPIROMETRY Never done HIV SCREENING Never done BP CONTROLLED (<130/80) Never done SHINGRIX VACCINE(1 of 2) Never done DEPRESSION SCREENING due on 09/26/2018 LUNG CANCER SCREENING due on 05/25/2019 DTAP,TDAP,TD(2 - Td or Tdap) due on 06/16/2019 ANNUAL PCP TEAM CHRONIC DISEASE VISIT due on 11/01/2019 EXAM: BP 132/60 Pulse 98 Temp 37.9 ?C (100.2 ?F) (Tympanic) Wt 78.5 kg (173 lb) SpO2 96% BMI 25.92 kg/m? Pleasant adult man in no acute distress. Alert and oriented all spheres. Normal affect and cognition. Speech normal. No deficits to learning or comprehension. Skin warm, flushed, sweating, pink to lips and nailbeds. Normal turgor. Respirations regular and unlabored. HEENT WNL. TM's clear. Nose and oropharynx free from injection or lesion. No cervical lymph nodes. Thyroid non-tender, no masses Negative Brudzinski Chest CTA. HRRR without murmur or gallop. Abdomen: active bowel sounds throughout, soft, nontender, no masses or organomegaly. No CVAT. Extrem: no clubbing or cyanosis. Edema: none. Extremities are warm and pink with prompt capillary refill. ASSESSMENT/PLAN: 1. Flu-like symptoms - ICD9: 780.99, ICD10: R68.89 Negatvive Covid -19. We cannot check rapid flu tests at this facility He is past point antivirals would help. No improvement on Augmentin and does not have hx consistent with bacterial sinusitis. Diarrhea may be part of flu syndrome or from augmentin as it started following day. Recommend stop Augmentin, Educated (more content not included)... [facility] 08-20-2020 Note HNO ID: [id number] Author: Ced Flores APRN.PLUG AND MOLD FINISHER Service: ? Author Type: Nurse Practitioner Type: Progress Notes Filed: 08/20/2020 9:17 AM Note Text: Subjective HPI HPI Jim Cooper is a 60 year old male who presents today for CC of intermittent sinus congestion, cough for 1 week, became severe last night, now facial pain body ache, slight temp. Has tried otc medication for relief. Symptoms are worsened by nothing. Risk factors smoker, hx copd. Denies change in taste/smell. Denies covid vaccine. .Patient presents with: Sinus Problem: sinus pressure and drainage x 1 week off and on, chills x last night PAST MEDICAL HISTORY Diagnosis Date - Alcohol dependence (HCC) - BPPV (benign paroxysmal positional vertigo) 2012 - Carotid stenosis - COPD (chronic obstructive pulmonary disease) (HCC) - Current smoker - GERD (gastroesophageal reflux disease) - Hyperlipidemia - Hypertension - Migraine headache - MELODY (obstructive sleep apnea) DME [facility] PAST SURGICAL HISTORY Procedure Laterality Date - COLONOSCOPY 06-15-06 normal-Dr. Gamble-repeat in - EGD 03/20/14 esophagitis - INSERT CATH,ART,PERCUT,SHORTTERM 12-28-11 - LAPAROSCOPY, SURGICAL, APPENDECTOMY 12-06-10 ruptured appendix - PAST SURGICAL HISTORY OF Left eye surgery. pterygium removed - THROMBOENDARTECTMY NECK,NECK INCIS 12-28-11 LEFT ALLERGIES Atorvastatin, Doxycycline, Dust, Delgado, Prednisone, and Oxhtbjp-Tcv-Pak Reductase Inhibitors -This section reviewed with patient, no changes MEDICATIONS lisinopril (ZESTRIL, PRINIVIL) 20 mg tablet Take 1 tablet by mouth once daily. amLODIPine (NORVASC) 5 mg tablet Take 1 tablet by mouth once daily. CPAP Autopap 8-20 cm H2O, Heat Humidity, suitable mask, Lifetime supplies, opt Chinstrap, G47.33. sildenafil (VIAGRA) 50 mg tablet One tab 30 minutes prior to activity sucralfate (CARAFATE) 1 gram tablet Take 1 tablet by mouth three times daily before meals. [place]-3 Fatty Acids-Vitamin E (FISH OIL) 1,000 mg cap Take 1 capsule by mouth. aspirin 81 mg chewable tablet Take 1 tablet by mouth once daily. benzonatate (TESSALON PERLES) 100 mg capsule Take 1 capsule by mouth three times daily as needed for Cough. FAMILY HISTORY Problem Relation Age of Onset - Alzheimer's Disease Mother - Hypertension Mother - Cancer Father lung - Ischemic Heart Disease Paternal Uncle [place] Social History Tobacco Use - Smoking status: Current Every Day Smoker Packs/day: 1.00 Years: 30.00 Pack years: 30.00 Types: Cigarettes - Smokeless tobacco: Never Used - Tobacco comment: started smoking 16yo-usually 1 PPD Substance Use Topics - Alcohol use: Yes Alcohol/week: 60.0 standard drinks Types: 24 Cans of Beer (12oz) per week Comment: Hx of 6 beers daily - Drug use: No Review of Systems Constitutional: Positive for fever and malaise/fatigue. HENT: Positive for congestion and sinus pain. Negative for ear pain, nosebleeds and sore throat. Respiratory: Positive for cough. Negative for shortness of breath and wheezing. Cardiovascular: Negative for chest pain. Gastrointestinal: Negative for diarrhea. Genitourinary: Negative for dysuria, frequency and urgency. Musculoskeletal: Negative for neck pain. Skin: Negative for rash. Objective Blood pressure 140/82, pulse 94, temperature 37.7 ?C (99.8 ?F), resp. rate 16, weight 80.3 kg (177 lb), SpO2 96 %. Component Latest Ref Rng AND Units 03/15/2020 Protein, Total 6.3 - 8.0 g/dL 7.2 Albumin 3.9 - 4.9 g/dL 4.2 Calcium 8.5 - 10.2 mg/dL 9.4 Bilirubin, Total 0.2 - 1.3 mg/dL 0.3 Alkaline Phosphatase 38 - 113 U/L 100 AST 14 - 40 U/L 24 Glucose 74 - 99 mg/dL 104 (H) BUN 9 - 24 mg/dL 12 Creatinine 0.73 - 1.22 mg/dL 0.82 Sodium 136 - 144 mmol/L 138 Potassium 3.7 - 5.1 mmol/L 5.1 Chloride 97 - 105 mmol/L 106 (H) CO2 22 - 30 mmol/L 24 Anion Gap 9 - 18 mmol/L 8 (L) ALT 10 - 54 U/L 29 eGFR- >60 eGFR-All Other Races . >60 Physical Exam Constitutional: General: He is not in acute distress. Appearance: He is not toxic-appearing or diaphoretic. HENT: Head: Normocephalic and atraumatic. Right Ear: Hearing, tympanic membrane, ear canal and external ear normal. Left Ear: Hearing, tympanic membrane, ear canal and external ear normal. Nose: Right Sinus: Maxillary sinus tenderness present. Left Sinus: Maxillary sinus tenderness present. Mouth/Throat: Pharynx: Uvula midline. Eyes: General: Lids are normal. No scleral icterus. Right eye: No discharge. Left eye: No discharge. Conjunctiva/sclera: Conjunctivae normal. Pupils: Pupils are equal, round, and reactive to light. Neck: Trachea: Trachea normal. Cardiovascular: Rate and Rhythm: Normal rate and regular rhythm. Heart sounds: Normal heart sounds. Pulmonary: Effort: Pulmonary effort is normal. Breath sounds: Normal breath sounds. Musculoskeletal: Cervical back: Normal range of motion and ne (more content not included)... [facility] documented as of this encounter (statuses as of 06/09/2021) [facility]01-[facility] History of Past illness Narrative* Problem Noted Date Resolved Date Heme positive stool 03/08/2017 04/01/2018 Overview: 03/06/17 DREW Bronson MD: EGD: +GERD and esophagitis, minimal antral gastritis; COLONOSCOPY: minimal sigmoid diverticulosis, grade 3 internal and external hemorrhoids. Perforated appendicitis 12/16/2010 04/01/19 19 Hemorrhoid 09/29/2009 04/01/2018 Overview: 03/06/17 colonoscopy: grade 3 internal and external hemorrhoids Fatigue 06/15/2009 01/22/2012 documented as of this encounter (statuses as of 06/24/2021) [facility] Elevated PSA- Primary Elevated prostate specific antigen (PSA) documented in this encounter [facility] Summary Purpose Family History No Family History Records FoundNo Family History Records Found Advance Directives No Advanced Directives Records FoundNo Advanced Directives Records Found Reason for Referral Specialty Diagnoses / Procedures Referred By Zan t Referred To Contact Urology Diagnoses Elevated PSA Procedures CONSULT TO UROLOGY OFFICE/OUTPATIENT NEW HIGH MDM 60-74 MINUTES Bob Bashir PA-C [address] [place] [address] Referral ID Status Reason Start Date Expiration Date Visits Requested Visits Authorized [id number] Pending Review PCP Requested Referral 06/24/2021 06/24/2022 1 1 Additional Source Comments Source Comments (unrecognize d section and content) In the event this informatio n is protected by the Federal Confidentiality of Alcohol and Drug Abuse Patient Records regulations: The Federal rules restrict any use of the information to criminally investigate or prosecute any alcohol or drug abuse patient.[facility] the event this information is protected by the Federal Confidentiality of Alcohol and Drug Abuse Patient Records regulations: The Federal rules restrict any use of the information to criminally investigate or prosecute any alcohol or drug abuse patient.[facility] Reason for Visit (unrecogniz ed section and content) Reason Comments Results Care Teams (unrecognized sec tion and content) Bee Tender Relationship Specialty Start Date End Date Bob Bashir PA-C [address] [place] [address] PCP - General Family Practice 03/27/16 (unrecognized sect ion and content) No Status Records FoundNo Status Records Found INFORMATION SOURCE (unrecogn ized section and content) DATE CREATED AUTHOR AUTHOR'S ORGANIZ ATION 06/28/2021 [facility] FOR RECORDS PERTAINING TO PATIENTS WHO ARE OR HAVE BEEN ENROLLED IN A CHEMICAL DEPENDENCY/SUBSTANCEABUSE PROGRAM, SOME INFORMATION MAY BE OMITTED. This clinical summary was aggregated from multiple sources. Caution should be exercised in using it in the provision of clinical care. This summary normalizes information from multiple sources, and as a consequence, information in this document may materially change the coding, format and clinical context of patient data. In addition, data may be omitted in some cases. CLINICAL DECISIONS SHOULD BE BASED ON THE PRIMARY CLINICAL RECORDS. [facility] [employer] [facility]. provides no warranty or guarantee of the accuracy or completeness of information in this document.
== END | disposition home or self-care (01) ==
LOC: LAB 09:48
PROVIDERS: PCP Internal Medicine; Referring Provider Internal Medicine; Visit Provider Internal Medicine
DX: Z13.220 Encounter for screening for lipoid disorders (principal); H81.10 Benign paroxysmal vertigo, unspecified ear; R53.83 Other fatigue; N40.0 Benign prostatic hyperplasia without lower urinary tract symptoms
CPT/HCPCS: 36415; 80053; 80061; 84153; 84443; 85025

== ENCOUNTER → 2023-03-13 | Outpatient (CLI) | payer BC, SELFPAY ==
--- NOTE | 2023-03-13 09:18 | US_ITS ---
INDICATION: Upper abdominal bloating, nausea EXAMINATION: Ultrasound US Abdomen Limited (quadrant) TECHNIQUE: [place]wood scale and color doppler imaging was performed of the right upper quadrant. COMPARISON: No relevant prior comparison study available FINDINGS: LIVER: There is normal echotexture. The liver measures about 17.4 cm in length. The portal vein is patent with normal hepatopedal flow. No focal hepatic lesion. There is no free fluid. GALLBLADDER AND BILIARY TREE: No shadowing gallstone, pericholecystic fluid or gallbladder wall thickening is demonstrated. The gallbladder wall measures 2 mm. The proximal common bile duct measures 5 mm, which is within normal limits for the patient''s age. Sonographic Mata''s sign: Negative. PANCREAS: The pancreas is suboptimally visualized and is somewhat echogenic in texture. RIGHT KIDNEY: Right kidney measures 12.3 cm in length. The renal cortex measures 1.6 cm. No evidence of hydronephrosis. US/Liver IMPRESSION: No acute sonographic abnormality is demonstrated in the right upper quadrant. Electronically Signed: Garret Montano MD at 12:44 EST ,
--- OUTSIDE RECORDS SUMMARY | 2023-03-13 10:22 | XMS RPT_ITS | CCD ---
Author Name Unknown Address [address] [facility] [address] [place] [address] Organization [facility] Care Team Providers Care Luster Applicator Name Role Phone Bob Bashir PA-C Primary Care Provider Allergies Allergy Classification Reported Allergen(s) Allergy Type Date of Onset Reaction(s) Facility (2 sources) atorvastatin Drug Allergy 9 Myalgia [facility] Work Phone: (2 sources) D[facility] Work Phone: (2 sources) Dust Allergy to substance 7 Intolerance [facility] Work Phone: (2 sources) HMG-CoA reductase inhibitor Drug Intolerance 9 Intolerance [facility] Work Phone: (2 sources) predniSONE Drug Allergy 8 [facility] Work Phone: (2 sources) Delgado Drug Allergy 7 Intolerance [facility] Work Phone: Medications Completed/Discontinued Medications Medication [...] Benigno Bashir PA-C Work Phone: [facility] [place] Procedures Date Procedure Procedure Detail Performing Clinician Start: 09-26-2017 Adult depression scr eening assessment Stacy Gibbons APRN.CNP Work Phone: Start: 03-06-2017 Colonoscopy Stacy taylor APRN.CNP Work Phone: Plan of Treatment Date Care Activity Detail Author Start: 03-06-2027 Colonoscopy COLONOSCOPY [facility] Start: 03-06-2027 COLORECTAL CANCER SCREENING COLORECTAL CANCER SCREENING [facility] Start: 06-24-2026 LIPID SCREEN LIPID SCREEN [facility] Start: 03-15-2025 LIPID SCREEN LIPID SCREEN [facility] Start: 06-24-2024 DIABETES SCREEN DIABETES SCREEN [facility] Start: 04-01-2023 PROSTATE CANCER SCRE ENING DISCUSSION PROSTATE CANCER SCREENING DISCUSSION [facility] Start: 03-15-2023 DIABETES SCREEN DIABETES SCREEN [facility] Start: 06-08-2022 Influenza vaccination LUNG CANCER SC REENING [facility] Start: 11-03-2021 Influenza vaccination INFLUENZA (Sea son Ended) [facility] Start: 11-02-2021 ANNUAL PCP TEAM SOLUTIONS SALES EXECUTIVE ARIELLA DISEASE VISIT ANNUAL PCP TEAM CHRONIC DISEASE VISIT [facility] Start: 09-16-2021 COVID-19 VACCINE (1) COVID-19 VACCIN E (1) [facility] Immunizations Immunization Date Immunization Notes Care Provider Fa rylee 10-24-2020 zoster vaccine recombinant Stacy Gibbons APRN.CNP Work Phone: [facility] 01-24-2013 pneumococcal polysaccharide vaccine, 23 valent Stacy Gibbons APRN.WEB SITE ADMINISTRATOR Work Phone: [facility] 06-15-2009 tetanus toxoid, redu kenny diphtheria toxoid, and acellular pertussis vaccine, adsorbed Stacy Gibbons APRN.WEB SITE ADMINISTRATOR Work Phone: [facility] Payers Date Payer Category Payer Private Health Insurance [employer] A ETNA CHOICE POS II [id number] 2017-Present [phone] [address] [place] [address] POS [id number] Social History Date Type Detail Facility [facility]: [facility]05[facility] Work Phone: Start: 03-05-1976 History of tobacco use Cigarette Smo ker [facility] Work Phone: Start: 06-08-2021 Alcohol intake Current drinke r of alcohol (finding) [facility] Start: 06-08-2021 Alcohol intake [facility] mono [facility] Start: 01-24-2013 History SDOH Alcohol Comment Hx of 6 beers daily [facility] Start: 01-24-2013 Tobacco Comment started smokin g 16yo-usually 1 PPD [facility] Start: 1960 Sex Assigned At Not on file C [facility] Start: 05-29-2021 End: 06-08-2021 Exposure to SARS-CoV-2 (event) Not sure [facility] Clinical Notes 03-08-2017 to 06-24-2021 Telephone [...] Parmjit Bashir PA-C documented in this encounter [facility] 06-09-2021 Miscellaneous Notes Spoke with patient regarding previously discussed LDCT results category 3 with follow-up recommended in 6 months to evaluate stability of the RLL 11.7 mm nodule and additional LLL nodules with CT and appointment. Advised that schedulers will be reaching out to schedule this appointment. He comprehends and agrees with the plan. Stacy Gibbons APRN.SANDEE documented in this encounter [facility] 06-08-2021 Note HNO ID: [id number] Author: Stacy Gibbons APRN.SANDEE Service: ? Author [...] doses of COVID19 vaccine Modified Medical Research [place] Dyspnea Scale (MMRC) I only get breathless [...] Migraine headache - MELODY (obstructive sleep apnea) [facility] Surgical Hx: PAST SURGICAL HISTORY Procedure Laterality [...] lung - Ischemic Heart Disease Paternal Uncle [place] Allergies: ALLERGIES Allergen Reactions - Atorvastatin Myalgia - Doxycycline Hives - Dust Intolerance - Delgado Intolerance - Prednisone Hives - Jdfykkz-Yom-Ofh Red* Intolerance myalgias Social History Tobacco Use: [...] of the thoracic (more content not included)... [facility] 03-09-2021 Note HNO ID: [id number] Author: Adalgisa Reynolds APRN.WEB SITE ADMINISTRATOR Service: ? Author Type: Nurse Practitioner Type: Progress Notes Filed: 03/09/2021 2:56 PM Note Text: MULTI DISCIPLINARY LUNG CANCER SCREENING TUMOR BOARD March 09, 2021 Presenting Providers: Adalgisa El CNP Providers present: Dr. Jef Godoy, Dr. Mark Bess, Jacklyn Hardy CNP, Dr. Errol Tilley, Khushi Hughes, Julieta Cooper [phone] Diagnosis: RLL 11.7 mm lung nodule new [...] for a particular patient. Adalgisa Reynolds APRN.SANDEE [facility] 03-02-2021 Note HNO ID: [id number] Author: MARIE Sultana Service: Radiology Author Type: [...] MARIE Sultana March 02, 2021 10:20 AM [facility] 03-02-2021 Note HNO ID: [id number] Author: Adalgisa Reynolds APRN.WEB SITE ADMINISTRATOR Service: ? Author Type: Nurse Practitioner Type: [...] pre-disease performance w/o restriction. Modified [employer] [place] Dyspnea Scale (MMRC) I only get breathless [...] lung - Ischemic Heart Disease Paternal Uncle [place] amLODIPine (NORVASC) 5 mg tablet Take 1 [...] by mouth three times daily before meals. [place]-3 Fatty Acids-Vitamin E (FISH OIL) 1,000 mg cap Take 1 capsule by mouth. aspirin 81 mg chewable tablet Take 1 tablet by mouth once daily. ALLERGIES Allergen Reactions - Atorvastatin Myalgia - Doxycycline Hives - Dust Intolerance - Delgado Intolerance - Prednisone Hives - Zyydzel-Qwp-Opo Red* Intolerance myalgias The medications and allergies [...] year risk for lung cancer: 5.2% Source: [employer] I have determined that the patient is eligible for a low dose CT based on age, absence of signs or symptoms of lung cancer, and total pack years: Yes. The patient and I engaged in shared decision making, including the use of one or more decision aids, to include (more content not included)... [facility] 11-02-2020 Note HNO ID: [id number] Author: Bob Bashir PA-C Service: ? Author Type: Physician Plaster Whittler Type: Progress Notes Filed: 11/02/2020 5:16 PM Note Text: 60 year old male with c/o wart right middle finger. OTC treatment no benefit. HISTORIES FAMILY HISTORY Problem Relation Age of Onset - Alzheimer's Disease Mother - Hypertension Mother - Cancer Father lung - Ischemic Heart Disease Paternal Uncle [place] PAST MEDICAL HISTORY Diagnosis Date - Alcohol dependence ([facility]) - BPPV (benign paroxysmal positional vertigo) 2012 - Carotid stenosis - COPD (chronic obstructive pulmonary disease) ([facility]) - Current smoker - GERD (gastroesophageal reflux [...] Essential Smoker Copd (Chronic Obstructive Pulmonary Disease) ([facility]) Routine Physical Examination Alcohol Abuse Overweight Migraine [...] daily before meals. 90 tablet 1 - [place]-3 Fatty Acids-Vitamin E (FISH OIL) 1,000 mg [...] weeks if not resolved. Bob Bashir PA-C [facility] 09-22-2020 Note HNO ID: [id number] Author: Paula Paz PA-C Service: ? Author Type: Physician Plaster Whittler Type: Progress Notes Filed: 09/22/2020 10:59 AM [...] Migraine headache - MELODY (obstructive sleep apnea) [facility] After chart review patient appears eligible for [...] visit. Paula Paz PA-C September 22, 2020 [facility] 09-16-2020 Note HNO ID: [id number] Author: Bob Bashir PA-C Service: ? Author Type: Physician Plaster Whittler Type: Progress Notes Filed: 09/19/2020 8:47 PM [...] feels refreshed 5/7 days Elevated Psa Saw [facility] nurse for physical last year PSA was elevated Sent to Dr. Wing [facility] Prostate Bx with negative records. Bled for several days after. 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 HISTORIES FAMILY HISTORY Problem Relation Age of Onset Alzheimer's Disease Mother Hypertension Mother Cancer Father lung Ischemic Heart Disease Paternal Uncle [place] PAST MEDICAL HISTORY Diagnosis Date Alcohol dependence (HCC) BPPV (benign paroxysmal positional vertigo) 2012 Carotid stenosis COPD (chronic obstructive pulmonary disease) (HCC) Current smoker GERD (gastroesophageal reflux disease) Hyperlipidemia Hypertension Migraine headache MELODY (obstructive sleep apnea) [facility] PAST SURGICAL HISTORY Procedure Laterality Date COLONOSCOPY 06-15-06 normal-Dr. Gamble-repeat in EGD 03/20/14 esophagitis INSERT CATH,ART,PERCUT,SHORTTERM 12-28-11 LAPAROSCOPY, SURGICAL, APPENDECTOMY 12-06-10 ruptured appendix PAST SURGICAL HISTORY OF Left eye surgery. pterygium removed THROMBOENDARTECTMY NECK,NECK INCIS 12-28-11 LEFT Social History Tobacco Use Smoking status: Current Every Day Smoker Packs/day: 1.00 Years: 30.00 Pack years: 30.00 Types: Cigarettes Smokeless (more content not included)... [facility] 08-23-2020 Note HNO ID: [id number] Author: Bob Bashir PA-C Service: ? Author Type: Physician Plaster Whittler Type: Progress Notes Filed: 08/24/2020 6:57 AM [...] lung - Ischemic Heart Disease Paternal Uncle [place] PAST MEDICAL HISTORY Diagnosis Date - Alcohol dependence (HCC) - BPPV (benign paroxysmal positional vertigo) 2012 - Carotid stenosis - COPD (chronic obstructive pulmonary disease) ([facility]) - Current smoker - GERD (gastroesophageal reflux disease) - Hyperlipidemia - Hypertension - Migraine headache - MELODY (obstructive sleep apnea) DME [facility] PAST SURGICAL HISTORY Procedure Laterality Date - [...] Essential Smoker Copd (Chronic Obstructive Pulmonary Disease) ([facility]) Routine Physical Examination Alcohol Abuse Overweight Migraine [...] daily before meals. 90 tablet 1 - [place]-3 Fatty Acids-Vitamin E (FISH OIL) 1,000 mg [...] stop Augmentin, Educated (more content not included)... [facility] 08-20-2020 Note HNO ID: [id number] Author: Ced Flores APRN.WEB SITE ADMINISTRATOR Service: ? Author Type: Nurse Practitioner Type: [...] headache - MELODY (obstructive sleep apnea) D[facility] PAST SURGICAL HISTORY Procedure Laterality Date - COLONOSCOPY 06-15-06 normal-Dr. Gamble-repeat in - EGD 03/20/14 esophagitis - INSERT CATH,ART,PERCUT,SHORTTERM 12-28-11 - LAPAROSCOPY, SURGICAL, APPENDECTOMY 12-06-10 ruptured appendix - PAST SURGICAL HISTORY OF Left eye surgery. pterygium removed - THROMBOENDARTECTMY NECK,NECK INCIS 12-28-11 LEFT ALLERGIES Atorvastatin, Doxycycline, Dust, Delgado, Prednisone, and Vwvlivz-Nal-Qzq Reductase Inhibitors -This section reviewed with patient, [...] by mouth three times daily before meals. [place]-3 Fatty Acids-Vitamin E (FISH OIL) 1,000 mg [...] lung - Ischemic Heart Disease Paternal Uncle [place] Social History Tobacco Use - Smoking status: [...] motion and ne (more content not included)... [facility] documented as of this encounter (statuses as of 06/09/2021) [facility] History of Past illness Narrative* Problem [...] of this encounter (statuses as of 06/24/2021) [facility] Elevated PSA- Primary Elevated prostate specific antigen (PSA) documented in this encounter [facility] Summary Purpose Family History No Family History Records FoundNo Family History Records Found Advance Directives No Advanced Directives Records FoundNo Advanced Directives Records Found Reason for Referral Specialty Diagnoses / Procedures Referred By Zan t Referred To Contact Urology Diagnoses Elevated PSA Procedures CONSULT TO UROLOGY OFFICE/OUTPATIENT NEW HIGH MDM 60-74 MINUTES Bob Bashir PA-C [address] [place] [address] Referral ID Status Reason Start Date Expiration Date Visits Requested Visits Authorized [id number] Pending Review PCP Requested Referral 06/24/2021 06/24/2022 1 1 Additional Source Comments Source Comments (unrecognize d section and content) In the event this informatio n is protected by the Federal Confidentiality of Alcohol and Drug Abuse Patient Records regulations: The Federal rules restrict any use of the information to criminally investigate or prosecute any alcohol or drug abuse patient.[facility] the event this information is protected by the Federal Confidentiality of Alcohol and Drug Abuse Patient Records regulations: The Federal rules restrict any use of the information to criminally investigate or prosecute any alcohol or drug abuse patient.[facility] Reason for Visit (unrecogniz ed section and content) Reason Comments Results Care Teams (unrecognized sec tion and content) Luster Applicator Relationship Specialty Start Date End Date Bob Bashir PA-C [address] [place] [address] PCP - General Family Practice 03/27/16 (unrecognized sect ion and content) No Status Records FoundNo Status Records Found INFORMATION SOURCE (unrecogn ized section and content) DATE CREATED AUTHOR AUTHOR'S ORGANIZ ATION 06/28/2021 [facility] FOR RECORDS PERTAINING TO PATIENTS WHO [...] THE PRIMARY CLINICAL RECORDS. [facility]. provides no warranty or guarantee of the accuracy or completeness of information in this document.
== END | disposition home or self-care (01) ==
PROVIDERS: PCP Internal Medicine; Referring Provider Internal Medicine; Visit Provider Internal Medicine
DX: R14.0 Abdominal distension (gaseous) (principal); R10.9 Unspecified abdominal pain
CPT/HCPCS: 76705

== ENCOUNTER → 2023-03-23 | Outpatient (CLI) | payer BC, SELFPAY ==
--- NOTE | 2023-03-23 09:45 | NM_ITS ---
CLINICAL: 62-year-old male with history of postprandial abdominal bloating and nausea. RADIONUCLIDE HEPATOBILIARY SCINTIGRAPHY COMPARISON: Abdominal ultrasound report 03/13/2023 FINDINGS: Following the intravenous administration of 5.6 mCi of 99m Tc Mebrofenin, hepatobiliary images reveal: 1. Relatively prompt and homogeneous radiopharmaceutical concentration is noted by a normal sized liver. No parenchymal defects are identified. 2. Gallbladder activity is identified at 10 minutes post radiopharmaceutical administration. 3. Small intestinal tract is observed at 15 minutes following tracer injection. 4. Washout of the radiopharmaceutical by the hepatic parenchyma appears qualitatively normal. Cholecystokinin (0.02 ug/kg) was administered intravenously over a 30-minute period. The post CCK gallbladder ejection fraction calculated at 20 minutes following Cholecystokinin administration was noted to be < 5 % (normal greater than 35%). NM/Hepatobilliary Img w/Pharm Int IMPRESSION: 1. ABNORMAL 99m Tc Mebrofenin hepatobiliary imaging examination with Cholecystokinin. A. A gallbladder ejection fraction calculated to be less than 35% following the administration of Cholecystokinin is consistent with the presence of functional hepatobiliary disease (gallbladder and/or sphincter of Oddi dyskinesia) and/or organic hepatobiliary disease (chronic acalculous cholecystitis and/or cystic duct syndrome) in patients with intermediate to high pretest probabilities of hepatobiliary illness. (Alexandru Evans et al, Journal of Nuclear Medicine 32:1695, 1991). Electronically Signed: Ignacio Newby DO at 15:40 EST ,
--- OUTSIDE RECORDS SUMMARY | 2023-03-23 10:02 | XMS RPT_ITS | CCD ---
Author Name Unknown Address [address] [facility] [address] [place] [address] Organization [facility] Care Team Providers Care Center Punch Operator Name Role Phone Bob Bashir PA-C Primary Care Provider Allergies Allergy Classification Reported Allergen(s) Allergy Type Date of Onset Reaction(s) Facility (2 sources) atorvastatin Drug Allergy 9 Myalgia [facility] Work Phone: (2 sources) D[facility]ine [facility] Work Phone: (2 sources) Dust Allergy to substance 7 Intolerance [facility] Work Phone: (2 sources) HMG-CoA reductase inhibitor Drug Intolerance 9 Intolerance [facility] Work Phone: (2 sources) predniSONE Drug Allergy [address] [facility] Work Phone: (2 sources) Delgado Drug Allergy 7 Intolerance [facility] Work Phone: Medications Completed/Discontinued Medications Medication Drug [...] Benigno Bashir PA-C Work Phone: [facility] Procedures Date Procedure Procedure Detail Performing Clinician Start: 09-26-2017 Adult depression scr eening assessment Stacy Gibbons APRN.CNP Work Phone: Start: 03-06-2017 Colonoscopy Stacy taylor APRN.CNP Work Phone: Plan of Treatment Date Care Activity Detail Author Start: 03-06-2027 Colonoscopy COLONOSCOPY [facility] Start: 03-06-2027 COLORECTAL CANCER SCREENING COLORECTAL CANCER SCREENING [facility] Start: 06-24-2026 LIPID SCREEN LIPID SCREEN [facility] Start: 03-15-2025 LIPID SCREEN LIPID SCREEN [facility] Start: 06-24-2024 DIABETES SCREEN DIABETES SCREEN [facility] Start: 04-01-2023 PROSTATE CANCER SCRE ENING DISCUSSION PROSTATE CANCER SCREENING DISCUSSION [facility] Start: 03-15-2023 DIABETES SCREEN DIABETES SCREEN [facility] Start: 06-08-2022 Influenza vaccination LUNG CANCER SC REENING [facility] Start: 11-03-2021 Influenza vaccination INFLUENZA (Sea son Ended) [facility] Start: 11-02-2021 ANNUAL PCP TEAM STEWARD/STEWARDESS BANQUET ARIELLA DISEASE VISIT ANNUAL PCP TEAM CHRONIC DISEASE VISIT [facility] Start: 09-16-2021 COVID-19 VACCINE (1) COVID-19 VACCIN E (1) [facility] Immunizations Immunization Date Immunization Notes Care Provider Fa rylee 10-24-2020 zoster vaccine recombinant Stacy Gibbons APRN.CNP Work Phone: [facility] 01-24-2013 pneumococcal polysaccharide vaccine, 23 valent Stacy Gibbons APRN.[employer] Work Phone: [facility] 06-15-2009 tetanus toxoid, redu kenny diphtheria toxoid, and acellular pertussis vaccine, adsorbed Stacy Gibbons APRN.[employer]ELOP[employer] Work Phone: [facility] Payers Date Payer Category Payer Private Health Insurance [employer]ET[employer] A ETNA CHOICE POS II [id number] 2017-Present [phone] [address] [place] [address] POS [id number] Social History Date Type Detail Facility Start: [facility]05-[facility] Work Phone: Start: 03-05-1976 History of tobacco use Cigarette Smo ker [facility] Work Phone: Start: 06-08-2021 Alcohol intake Current drinke r of alcohol (finding) [facility] Start: 06-08-2021 Alcohol intake [facility] Start: 01-24-2013 History SDOH Alcohol Comment Hx of 6 beers daily [facility] Start: 01-24-2013 Tobacco Comment started smokin g 16yo-usually 1 PPD [facility] Start: 1960 Sex Assigned At Not on file C [facility] Start: 05-29-2021 End: 06-08-2021 Exposure to SARS-CoV-2 (event) Not sure [facility] Clinical Notes 03-08-2017 to 06-24-2021 Telephone Encounter [...] Parmjit Bashir PA-C documented in this encounter [facility] 06-09-2021 Miscellaneous Notes Spoke with patient regarding previously discussed LDCT results category 3 with follow-up recommended in 6 months to evaluate stability of the RLL 11.7 mm nodule and additional LLL nodules with CT and appointment. Advised that schedulers will be reaching out to schedule this appointment. He comprehends and agrees with the plan. Stacy Gibbons APRN.SANDEE documented in this encounter [facility] 06-08-2021 Note HNO ID: [id number] Author: Stacy Gibbons APRN.SANDEE Service: ? Author [...] doses of COVID19 vaccine Modified [employer] [place] Dyspnea Scale (MMRC) I only get breathless [...] Migraine headache - MELODY (obstructive sleep apnea) [facility] Surgical Hx: PAST SURGICAL HISTORY Procedure [...] lung - Ischemic Heart Disease Paternal Uncle AR Allergies: ALLERGIES Allergen Reactions - Atorvastatin Myalgia - Doxycycline Hives - Dust Intolerance - Delgado Intolerance - Prednisone Hives - Uvvkmbu-Qwg-Zjx Red* Intolerance myalgias Social History Tobacco Use: [...] of the thoracic (more content not included)... [facility] 03-09-2021 Note HNO ID: [id number] Author: Adlagisa Reynolds APRN.[employer] PRESIDENT [employer]ELOP[employer] Service: ? Author Type: Nurse Practitioner Type: Progress Notes Filed: 03/09/2021 2:56 PM Note Text: MULTI DISCIPLINARY LUNG CANCER SCREENING TUMOR BOARD March 09, 2021 Presenting Providers: Adalgisa El CNP Providers present: Dr. Jef Godoy, Dr. Mark Bess, Jacklyn Hardy CNP, Dr. Errol Tilley, Khushi Hughes, Julieta Cooper [phone] Diagnosis: RLL 11.7 mm lung nodule new [...] for a particular patient. Adalgisa Reynolds APRN.SANDEE [facility] 03-02-2021 Note HNO ID: [id number] Author: MARIE Sultana Service: Radiology Author Type: [...] MARIE Sultana March 02, 2021 10:20 AM [facility] 03-02-2021 Note HNO ID: [id number] Author: Adalgisa Reynolds APRN.[employer]OP[employer] Service: ? Author Type: Nurse Practitioner Type: [...] pre-disease performance w/o restriction. Modified [employer] [place] Dyspnea Scale (MMRC) I only get breathless [...] lung - Ischemic Heart Disease Paternal Uncle AR amLODIPine (NORVASC) 5 mg tablet Take 1 [...] by mouth three times daily before meals. [place]-3 Fatty Acids-Vitamin E (FISH OIL) 1,000 mg cap Take 1 capsule by mouth. aspirin 81 mg chewable tablet Take 1 tablet by mouth once daily. ALLERGIES Allergen Reactions - Atorvastatin Myalgia - Doxycycline Hives - Dust Intolerance - Delgado Intolerance - Prednisone Hives - Zqcuupx-Mof-Vsd Red* Intolerance myalgias The medications and allergies [...] year risk for lung cancer: 5.2% Source: [place] I have determined that the patient is eligible for a low dose CT based on age, absence of signs or symptoms of lung cancer, and total pack years: Yes. The patient and I engaged in shared decision making, including the use of one or more decision aids, to include (more content not included)... [facility] 11-02-2020 Note HNO ID: [id number] Author: Bob Bashir PA-C Service: ? Author Type: Physician Storekeeper Engineering Type: Progress Notes Filed: 11/02/2020 5:16 PM Note Text: 60 year old male with c/o wart right middle finger. OTC treatment no benefit. HISTORIES FAMILY HISTORY Problem Relation Age of Onset - Alzheimer's Disease Mother - Hypertension Mother - Cancer Father lung - Ischemic Heart Disease Paternal Uncle AR PAST MEDICAL HISTORY Diagnosis Date - Alcohol dependence ([facility]) - BPPV (benign paroxysmal positional vertigo) 2012 - Carotid stenosis - COPD (chronic obstructive pulmonary disease) ([facility]) - Current smoker - GERD (gastroesophageal [...] Essential Smoker Copd (Chronic Obstructive Pulmonary Disease) ([facility]) Routine Physical Examination Alcohol Abuse Overweight Migraine [...] daily before meals. 90 tablet 1 - [place]-3 Fatty Acids-Vitamin E (FISH OIL) 1,000 mg [...] weeks if not resolved. Bob Bashir PA-C [facility] 09-22-2020 Note HNO ID: [id number] Author: Paula Paz PA-C Service: ? Author Type: Physician Storekeeper Engineering Type: Progress Notes Filed: 09/22/2020 10:59 AM [...] Migraine headache - MELODY (obstructive sleep apnea) [facility] After chart review patient appears eligible [...] visit. Paula Paz PA-C September 22, 2020 [facility] 09-16-2020 Note HNO ID: [id number] Author: Bob Bashir PA-C Service: ? Author Type: Physician Storekeeper Engineering Type: Progress Notes Filed: 09/19/2020 8:47 PM [...] feels refreshed 5/7 days Elevated Psa Saw [facility] nurse for physical last year PSA was elevated Sent to Dr. Wing [facility] Prostate Bx with negative records. Bled for several days after. 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 HISTORIES FAMILY HISTORY Problem Relation Age of Onset Alzheimer's Disease Mother Hypertension Mother Cancer Father lung Ischemic Heart Disease Paternal Uncle AR PAST MEDICAL HISTORY Diagnosis Date Alcohol dependence (HCC) BPPV (benign paroxysmal positional vertigo) 2012 Carotid stenosis COPD (chronic obstructive pulmonary disease) (HCC) Current smoker GERD (gastroesophageal reflux disease) Hyperlipidemia Hypertension Migraine headache MELODY (obstructive sleep apnea) [facility] PAST SURGICAL HISTORY Procedure Laterality Date COLONOSCOPY 06-15-06 normal-Dr. Gamble-repeat in EGD 03/20/14 esophagitis INSERT CATH,ART,PERCUT,SHORTTERM 12-28-11 LAPAROSCOPY, SURGICAL, APPENDECTOMY 12-06-10 ruptured appendix PAST SURGICAL HISTORY OF Left eye surgery. pterygium removed THROMBOENDARTECTMY NECK,NECK INCIS 12-28-11 LEFT Social History Tobacco Use Smoking status: Current Every Day Smoker Packs/day: 1.00 Years: 30.00 Pack years: 30.00 Types: Cigarettes Smokeless (more content not included)... [facility] 08-23-2020 Note HNO ID: [id number] Author: Bob Bashir PA-C Service: ? Author Type: Physician Storekeeper Engineering Type: Progress Notes Filed: 08/24/2020 6:57 AM [...] lung - Ischemic Heart Disease Paternal Uncle AR PAST MEDICAL HISTORY Diagnosis Date - Alcohol dependence (HCC) - BPPV (benign paroxysmal positional vertigo) 2012 - Carotid stenosis - COPD (chronic obstructive pulmonary disease) ([facility]) - Current smoker - GERD (gastroesophageal reflux disease) - Hyperlipidemia - Hypertension - Migraine headache - MELODY (obstructive sleep apnea) [facility] PAST SURGICAL HISTORY Procedure Laterality Date - [...] Essential Smoker Copd (Chronic Obstructive Pulmonary Disease) ([facility]) Routine Physical Examination Alcohol Abuse Overweight Migraine [...] daily before meals. 90 tablet 1 - [place]-3 Fatty Acids-Vitamin E (FISH OIL) 1,000 mg [...] stop Augmentin, Educated (more content not included)... [facility] 08-20-2020 Note HNO ID: [id number] Author: Ced Flores APRN.VICE PRESIDENT [employer]ETING [employer] DEVELOPMENT Service: ? Author Type: Nurse Practitioner Type: [...] headache - MELODY (obstructive sleep apnea) [facility] PAST SURGICAL HISTORY Procedure Laterality Date - COLONOSCOPY 06-15-06 normal-Dr. Gamble-repeat in - EGD 03/20/14 esophagitis - INSERT CATH,ART,PERCUT,SHORTTERM 12-28-11 - LAPAROSCOPY, SURGICAL, APPENDECTOMY 12-06-10 ruptured appendix - PAST SURGICAL HISTORY OF Left eye surgery. pterygium removed - THROMBOENDARTECTMY NECK,NECK INCIS 12-28-11 LEFT ALLERGIES Atorvastatin, Doxycycline, Dust, Delgado, Prednisone, and Lcekelk-Elc-Vgf Reductase Inhibitors -This section reviewed with patient, [...] by mouth three times daily before meals. [place]-3 Fatty Acids-Vitamin E (FISH OIL) 1,000 mg [...] lung - Ischemic Heart Disease Paternal Uncle AR Social History Tobacco Use - Smoking status: [...] motion and ne (more content not included)... [facility] documented as of this encounter (statuses as of 06/09/2021) [facility]01-04-2018 History of Past illness Narrative* Problem Noted [...] of this encounter (statuses as of 06/24/2021) [facility] Elevated PSA- Primary Elevated prostate specific antigen (PSA) documented in this encounter [facility] Summary Purpose Family History No Family History Records FoundNo Family History Records Found Advance Directives No Advanced Directives Records FoundNo Advanced Directives Records Found Reason for Referral Specialty Diagnoses / Procedures Referred By Zan t Referred To Contact Urology Diagnoses Elevated PSA Procedures CONSULT TO UROLOGY OFFICE/OUTPATIENT NEW HIGH MDM 60-74 MINUTES Bob Bashir PA-C [address] [place] [address] Referral ID Status Reason Start Date Expiration Date Visits Requested Visits Authorized [id number] Pending Review PCP Requested Referral 06/24/2021 06/24/2022 1 1 Additional Source Comments Source Comments (unrecognize d section and content) In the event this informatio n is protected by the Federal Confidentiality of Alcohol and Drug Abuse Patient Records regulations: The Federal rules restrict any use of the information to criminally investigate or prosecute any alcohol or drug abuse patient.[facility] the event this information is protected by the Federal Confidentiality of Alcohol and Drug Abuse Patient Records regulations: The Federal rules restrict any use of the information to criminally investigate or prosecute any alcohol or drug abuse patient.[facility] Reason for Visit (unrecogniz ed section and content) Reason Comments Results Care Teams (unrecognized sec tion and content) Center Punch Operator Relationship Specialty Start Date End Date Bob Bashir PA-C [address] [place] [address] PCP - General Family Practice 03/27/16 (unrecognized sect ion and content) No Status Records FoundNo Status Records Found INFORMATION SOURCE (unrecogn ized section and content) DATE CREATED AUTHOR AUTHOR'S ORGANIZ ATION 06/28/2021 [facility] FOR RECORDS PERTAINING TO PATIENTS WHO [...] BE BASED ON THE PRIMARY CLINICAL RECORDS. [facility] [employer] [facility] provides no warranty or guarantee of the accuracy or completeness of information in this document.
== END | disposition home or self-care (01) ==
PROVIDERS: PCP Internal Medicine; Referring Provider Internal Medicine; Visit Provider Internal Medicine
DX: R14.0 Abdominal distension (gaseous) (principal); R10.9 Unspecified abdominal pain
CPT/HCPCS: 78227; A9537; J2805

== ENCOUNTER 2023-05-10 05:41 | Day surgery (SDC) | payer MEDICARE, OTHER, SELFPAY ==
--- NOTE | 2023-05-04 08:12 | EKG12_ITS ---
Test Reason : PREOP Blood Pressure : / mmHG Vent. Rate : 058 BPM Atrial Rate : 058 BPM P-R Int : 164 ms QRS Dur : 094 ms QT Int : 412 ms P-R-T Axes : 045 085 050 degrees QTc Int : 404 ms Sinus bradycardia Otherwise normal ECG Confirmed by JACQUELINE MCGEE, PANFILO ([id number]), editor house organ KEVIN PAEZ ([id number]) on 05/07/2023 6:53:35 AM Referred By: Blane Bronson Confirmed By:KI PHILLIPS MD
[2023-05-04 09:33] LABS: Absolute Lymphocyte Count 1.59 X10^3/uL (0.83-4.51); Absolute Neutrophil Count 5.4 X10^3/uL (2.0-7.7); Basophil# 0.16 X10^3/uL; Basophil% 1.9 % (0-1); Eosinophil# 0.77 X10^3/uL; Eosinophils% 9.3 % (0-5); Hematocrit 47.9 % (40-54); Hemoglobin 15.7 g/dL (13.0-16.5); Lymphocyte # 1.59 X10^3/ul (0.83-4.51); Lymphocyte % 19.1 % (19-41); Mean Corp Hgb Conc 32.8 g/dL (32-36); Mean Corpuscular Hgb 28.7 pg (27.0-32.0); Mean Corpuscular Volume 87.6 fL (80-94); Mean Platelet Vol. 9.6 fl (6.2-12.0); Monocyte% 4.8 % (0-10); NRBC Flagged by Analyzer 0 % (0-5); Neutrophil # 5.38 X10^3/uL (2.7-7.7); Neutrophil % 64.7 % (47-70); Platelet Count 242 K/mm3 (150-450); RBC Distribution Width CV 13.9 % (11.6-14.6); RBC Distribution Width SD 44.9 fl (35.1-43.9); Red Blood Count 5.47 M/mm3 (4.6-6.2); White Blood Count 8.3 K/mm3 (4.4-11.0)
[2023-05-04 09:54] LABS: Anion Gap 1 (5-15); BUN 13 mg/dL (7-18); BUN/Creat Ratio 14.2 RATIO (10-20); Calcium,Total 9.4 mg/dL (8.5-10.1); Chloride 110 mmol/L (98-107); Creatinine, Serum 0.92 mg/dL (0.70-1.30); EST Glomerular Filtration Rate 88 mL/min (>60); Est Glom Filt Rate - Afr Amer 107 mL/min (>60); Glucose 94 mg/dL (74-106); Potassium 4.6 mmol/L (3.5-5.1); Sodium Level 137 mmol/L (136-145)
[2023-05-10] VITALS (7 sets, daily range): BP systolic 105–119; BP diastolic 64–77; PULSE 52–82; RESP 16–18; TEMP 36.3–36.8; O2SAT 96–100; BMI 27.9
--- OUTSIDE RECORDS SUMMARY | 2023-05-10 05:53 | XMS RPT_ITS | CCD ---
Author Name Unknown Address [address] [place] [address] Organization [facility] Care Team Providers Care Gyroscope Repairer Name Role Phone Bob Bashir PA-C Primary Care Provider [phone] Allergies Allergy Classification Reported Allergen(s) Allergy Type Date of Onset Reaction(s) Facility (2 sources) atorvastatin Drug Allergy 9 Myalgia [facility] Work Phone: (2 sources) Doxycycline Drug Allergy 8 [facility] Work Phone: (2 sources) Dust Allergy to substance 7 Intolerance [facility] Work Phone: (2 sources) HMG-CoA reductase inhibitor Drug Intolerance 9 Intolerance [facility] Work Phone: (2 sources) predniSONE Drug Allergy 8 [facility] Work Phone: (2 sources) Delgado Drug Allergy 7 Intolerance [facility] Work Phone: Medications Completed/Discontinued Medications Medication Drug [...] Benigno Bashir PA-C Work Phone: [facility] [place] Procedures Date Procedure Procedure Detail Performing Clinician Start: 09-26-2017 Adult depression scr eening assessment Stacy Gibbons APRN.CNP Work Phone: Start: 03-06-2017 Colonoscopy Stacy taylor APRN.CNP Work Phone: Plan of Treatment Date Care Activity Detail Author Start: 03-06-2027 Colonoscopy COLONOSCOPY [facility] Start: 03-06-2027 COLORECTAL CANCER SCREENING COLORECTAL CANCER SCREENING [facility] Start: 06-24-2026 LIPID SCREEN LIPID SCREEN [facility] Start: 03-15-2025 LIPID SCREEN LIPID SCREEN [facility] Start: 06-24-2024 DIABETES SCREEN DIABETES SCREEN [facility] Start: 04-01-2023 PROSTATE CANCER SCRE ENING DISCUSSION PROSTATE CANCER SCREENING DISCUSSION [facility] Start: 03-15-2023 DIABETES SCREEN DIABETES SCREEN [facility] Start: 06-08-2022 Influenza vaccination LUNG CANCER SC REENING [facility] Start: 11-03-2021 Influenza vaccination INFLUENZA (Sea son Ended) [facility] Start: 11-02-2021 ANNUAL PCP TEAM BOTTLE LABELER ARIELLA DISEASE VISIT ANNUAL PCP TEAM CHRONIC DISEASE VISIT [facility] Start: 09-16-2021 COVID-19 VACCINE (1) COVID-19 VACCIN E (1) [facility] Immunizations Immunization Date Immunization Notes Care Provider Fa rylee 10-24-2020 zoster vaccine recombinant Stacy Gibbons APRN.CNP Work Phone: [facility] 01-24-2013 pneumococcal polysaccharide vaccine, 23 valent Stacy Gibbons APRN.[facility] Work Phone: [facility] 06-15-2009 tetanus toxoid, redu kenny diphtheria toxoid, and acellular pertussis vaccine, adsorbed Stacy Gibbons APRN.[facility] Work Phone: [facility] Payers Date Payer Category Payer Private Health Insurance [employer] A ETNA CHOICE POS II [id number] 2017-Present [phone] [address] [place] [address] POS [id number] Social History Date Type Detail Facility Start: 03[facility]05-[facility] Work Phone: Start: 03-05-1976 History of tobacco use Cigarette Smo ker [facility] Work Phone: Start: 06-08-2021 Alcohol intake Current drinke r of alcohol (finding) [facility] Start: 06-08-[address] [facility] mono [facility] Start: 01-24-2013 History SDOH Alcohol Comment Hx of 6 beers daily [facility] Start: 01-24-2013 Tobacco Comment started smokin g 16yo-usually 1 PPD [facility] Start: 1960 Sex Assigned At Not on file [facility] Start: 05-29-2021 End: 06-08-2021 Exposure to SARS-CoV-2 (event) Not sure [facility] Clinical Notes 03-08-2017 to 06-24-2021 Telephone Encounter [...] Parmjit Bashir PA-C documented in this encounter [facility] 06-09-2021 Miscellaneous Notes Spoke with patient regarding previously discussed LDCT results category 3 with follow-up recommended in 6 months to evaluate stability of the RLL 11.7 mm nodule and additional LLL nodules with CT and appointment. Advised that schedulers will be reaching out to schedule this appointment. He comprehends and agrees with the plan. Stacy Gibbons APRN.SANDEE documented in this encounter [facility] 06-08-2021 Note HNO ID: [id number] Author: Stacy Gibbons APRN.SANDEE Service: ? Author [...] doses of COVID19 vaccine Modified [employer] [place] Dyspnea Scale (MMRC) I only get breathless [...] Migraine headache - MELODY (obstructive sleep apnea) [facility] Surgical Hx: PAST SURGICAL HISTORY Procedure [...] lung - Ischemic Heart Disease Paternal Uncle [place] Allergies: ALLERGIES Allergen Reactions - Atorvastatin Myalgia - Doxycycline Hives - Dust Intolerance - Delgado Intolerance - Prednisone Hives - Lqadqnm-Yxf-Yyl Red* Intolerance myalgias Social History Tobacco Use: [...] of the thoracic (more content not included)... [facility] 03-09-2021 Note HNO ID: [id number] Author: Adalgisa Reynolds APRN.PARTNER CCO Service: ? Author Type: Nurse Practitioner Type: Progress Notes Filed: 03/09/2021 2:56 PM Note Text: MULTI DISCIPLINARY LUNG CANCER SCREENING TUMOR BOARD March 09, 2021 Presenting Providers: Adalgisa El CNP Providers present: Dr. Jef Godoy, Dr. Mark Bess, Jacklyn Hardy CNP, Dr. Errol Tilley, Khushi Hughes, Julieta Cooper [id number] Diagnosis: RLL 11.7 mm lung nodule new [...] for a particular patient. Adalgisa Reynolds APRN.SANDEE [facility] 03-02-2021 Note HNO ID: [id number] Author: MARIE Sultana Service: Radiology Author Type: [...] MARIE Sultana March 02, 2021 10:20 AM [facility] 03-02-2021 Note HNO ID: [id number] Author: Adalgisa Reynolds APRN.PARTNER CCO Service: ? Author Type: Nurse Practitioner Type: [...] pre-disease performance w/o restriction. Modified [employer] [place] Dyspnea Scale (MMRC) I only get breathless [...] lung - Ischemic Heart Disease Paternal Uncle [place] amLODIPine (NORVASC) 5 mg tablet Take 1 [...] by mouth three times daily before meals. Rowlett-3 Fatty Acids-Vitamin E (FISH OIL) 1,000 mg cap Take 1 capsule by mouth. aspirin 81 mg chewable tablet Take 1 tablet by mouth once daily. ALLERGIES Allergen Reactions - Atorvastatin Myalgia - Doxycycline Hives - Dust Intolerance - Delgado Intolerance - Prednisone Hives - Jgfduxo-Eix-Uxe Red* Intolerance myalgias The medications and allergies [...] year risk for lung cancer: 5.2% Source: [place] I have determined that the patient is eligible for a low dose CT based on age, absence of signs or symptoms of lung cancer, and total pack years: Yes. The patient and I engaged in shared decision making, including the use of one or more decision aids, to include (more content not included)... [facility] 11-02-2020 Note HNO ID: [id number] Author: Bob Bashir PA-C Service: ? Author Type: Physician Inspector Machine Cut Glass Type: Progress Notes Filed: 11/02/2020 5:16 PM Note Text: 60 year old male with c/o wart right middle finger. OTC treatment no benefit. HISTORIES FAMILY HISTORY Problem Relation Age of Onset - Alzheimer's Disease Mother - Hypertension Mother - Cancer Father lung - Ischemic Heart Disease Paternal Uncle [place] PAST MEDICAL HISTORY Diagnosis Date - Alcohol dependence ([facility]) - BPPV (benign paroxysmal positional vertigo) 2012 - Carotid stenosis - COPD (chronic obstructive pulmonary disease) ([facility]) - Current smoker - GERD (gastroesophageal reflux [...] Essential Smoker Copd (Chronic Obstructive Pulmonary Disease) ([facility]) Routine Physical Examination Alcohol Abuse Overweight [...] daily before meals. 90 tablet 1 - Rowlett-3 Fatty Acids-Vitamin E (FISH OIL) 1,000 mg [...] weeks if not resolved. Bob Bashir PA-C [facility] 09-22-2020 Note HNO ID: [id number] Author: Paula Paz PA-C Service: ? Author Type: Physician Inspector Machine Cut Glass Type: Progress Notes Filed: 09/22/2020 10:59 AM [...] Migraine headache - MELODY (obstructive sleep apnea) [facility] After chart review patient appears eligible [...] visit. Paula Paz PA-C September 22, 2020 [facility] 09-16-2020 Note HNO ID: [id number] Author: Bob Bashir PA-C Service: ? Author Type: Physician Inspector Machine Cut Glass Type: Progress Notes Filed: 09/19/2020 8:47 PM [...] feels refreshed 5/7 days Elevated Psa Saw [facility] nurse for physical last year PSA was elevated Sent to Dr. Wing [facility] Prostate Bx with negative records. Bled for several days after. 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 HISTORIES FAMILY HISTORY Problem Relation Age of Onset Alzheimer's Disease Mother Hypertension Mother Cancer Father lung Ischemic Heart Disease Paternal Uncle [place] PAST MEDICAL HISTORY Diagnosis Date Alcohol dependence (HCC) BPPV (benign paroxysmal positional vertigo) 2012 Carotid stenosis COPD (chronic obstructive pulmonary disease) ([facility]) Current smoker GERD (gastroesophageal reflux disease) Hyperlipidemia Hypertension Migraine headache MELODY (obstructive sleep apnea) [facility] PAST SURGICAL HISTORY Procedure Laterality Date COLONOSCOPY 06-15-06 normal-Dr. Gamble-repeat in EGD 03/20/14 esophagitis INSERT CATH,ART,PERCUT,SHORTTERM 12-28-11 LAPAROSCOPY, SURGICAL, APPENDECTOMY 12-06-10 ruptured appendix PAST SURGICAL HISTORY OF Left eye surgery. pterygium removed THROMBOENDARTECTMY NECK,NECK INCIS 12-28-11 LEFT Social History Tobacco Use Smoking status: Current Every Day Smoker Packs/day: 1.00 Years: 30.00 Pack years: 30.00 Types: Cigarettes Smokeless (more content not included)... [facility] 08-23-2020 Note HNO ID: [id number] Author: Bob Bashir PA-C Service: ? Author Type: Physician Inspector Machine Cut Glass Type: Progress Notes Filed: 08/24/2020 6:57 AM [...] lung - Ischemic Heart Disease Paternal Uncle [place] PAST MEDICAL HISTORY Diagnosis Date - Alcohol dependence (HCC) - BPPV (benign paroxysmal positional vertigo) 2012 - Carotid stenosis - COPD (chronic obstructive pulmonary disease) ([facility]) - Current smoker - GERD (gastroesophageal reflux disease) - Hyperlipidemia - Hypertension - Migraine headache - MELODY (obstructive sleep apnea) [facility] PAST SURGICAL HISTORY Procedure Laterality Date - [...] Essential Smoker Copd (Chronic Obstructive Pulmonary Disease) ([facility]) Routine Physical Examination Alcohol Abuse Overweight [...] daily before meals. 90 tablet 1 - Rowlett-3 Fatty Acids-Vitamin E (FISH OIL) 1,000 mg [...] stop Augmentin, Educated (more content not included)... [facility] 08-20-2020 Note HNO ID: [id number] Author: Ced Flores APRN.PARTNER CCO Service: ? Author Type: Nurse Practitioner Type: [...] headache - MELODY (obstructive sleep apnea) [facility] PAST SURGICAL HISTORY Procedure Laterality Date - COLONOSCOPY 06-15-06 normal-Dr. Gamble-repeat in - EGD 03/20/14 esophagitis - INSERT CATH,ART,PERCUT,SHORTTERM 12-28-11 - LAPAROSCOPY, SURGICAL, APPENDECTOMY 12-06-10 ruptured appendix - PAST SURGICAL HISTORY OF Left eye surgery. pterygium removed - THROMBOENDARTECTMY NECK,NECK INCIS 12-28-11 LEFT ALLERGIES Atorvastatin, Doxycycline, Dust, Delgado, Prednisone, and Lkrtgwi-Ydq-Gbt Reductase Inhibitors -This section reviewed with patient, [...] by mouth three times daily before meals. Rowlett-3 Fatty Acids-Vitamin E (FISH OIL) 1,000 mg [...] lung - Ischemic Heart Disease Paternal Uncle [place] Social History Tobacco Use - Smoking status: [...] motion and ne (more content not included)... [facility] documented as of this encounter (statuses as of 06/09/2021) [facility] History of Past illness Narrative* Problem Noted [...] of this encounter (statuses as of 06/24/2021) [facility] Elevated PSA- Primary Elevated prostate specific antigen (PSA) documented in this encounter [facility] Summary Purpose Family History No Family History Records FoundNo Family History Records Found Advance Directives No Advanced Directives Records FoundNo Advanced Directives Records Found Reason for Referral Specialty Diagnoses / Procedures Referred By Contaudra t Referred To Contact Urology Diagnoses Elevated PSA Procedures CONSULT TO UROLOGY OFFICE/OUTPATIENT NEW HIGH MDM 60-74 MINUTES Bob Bashir PA-C [address] [place] [address] Referral ID Status Reason Start Date Expiration Date Visits Requested Visits Authorized [id number] Pending Review PCP Requested Referral 06/24/2021 06/24/2022 1 1 Additional Source Comments Source Comments (unrecognize d section and content) In the event this informatio n is protected by the Federal Confidentiality of Alcohol and Drug Abuse Patient Records regulations: The Federal rules restrict any use of the information to criminally investigate or prosecute any alcohol or drug abuse patient.[facility] the event this information is protected by the Federal Confidentiality of Alcohol and Drug Abuse Patient Records regulations: The Federal rules restrict any use of the information to criminally investigate or prosecute any alcohol or drug abuse patient.[facility] Reason for Visit (unrecogniz ed section and content) Reason Comments Results Care Teams (unrecognized sec tion and content) Gyroscope Repairer Relationship Specialty Start Date End Date Bob Bashir PA-C [address] [place] [address] PCP - General Family Practice 03/27/16 (unrecognized sect ion and content) No Status Records FoundNo Status Records Found INFORMATION SOURCE (unrecogn ized section and content) DATE CREATED AUTHOR AUTHOR'S ORGANIZ ATION 06/28/2021 [facility] FOR RECORDS PERTAINING TO PATIENTS WHO ARE [...] BE BASED ON THE PRIMARY CLINICAL RECORDS. [facility] [employer] [facility]. provides no warranty or guarantee of the accuracy or completeness of information in this document.
[2023-05-10] MEDS: Lactated Ringers 1,000 ML 15 ML IV (06:22)
--- NOTE | 2023-05-10 06:29 | DCINST_ITS ---
Discharge Instructions Procedure General Surgery Diet Discharge Diet: Light diet - advance as tolerated (if you have questions about your diet instructions, please talk to you doctor.) Activity Discharge Activity: May Not Drive (for 3-5 days or while taking narcotic pain medicine.) May shower in (days): 1 Lifting Restrictions: 10 pounds Dressing / Incision Call your doctor if your incision/area has: Continuous Slow Oozing, Sudden Increased Bleeding, Increased Pain/ Swelling, Increased Redness and Foul Smelling Discharge Call your doctor if you observe: Fever of 101 or Higher Suture Line Care: Avoid Pulling/Pushing and Avoid Pinching/Bending Additional Dressing/Incision Instructions:: Change or remove dressing in 4 days. Leave steri-strips in place for 1 week. Follow Up Care Please Follow Up With: Blane Bronson MD When: Call [phone] to make an appointment to be seen in about 10 days. Test Results: Test results from this visit will be discussed in further detail at your follow- up appointment, if applicable. Discharge Plan Admission Attending Provider: Blane Bronson Primary Care Provider: Kenia Morrison Discharge Orders/Prescriptions Prescriptions: No Action multivitamin Tablet 1 tab PO DAILY ascorbic acid (vitamin C) 500 mg capsule 500 mg PO DAILY aspirin 81 mg tablet,delayed release (DR/EC) 81 mg PO DAILY Qty: 360 0RF Hold Instructions: Resume on 09/13/21. red yeast rice 600 mg capsule 1,200 mg PO BID Rx Instructions: give with meal/snack tamsulosin 0.4 mg capsule 0.4 mg PO QHS amlodipine 5 mg tablet 5 mg PO DAILY Qty: 90 3RF lisinopril 20 mg tablet 20 mg PO DAILY Qty: 90 3RF omega 0-akf-dry-fish oil [Fish Oil] 60-90-500 mg capsule 1 cap PO BID meclizine 25 mg tablet 12.5 mg PO BID PRN (Reason: dizziness) Qty: 14 0RF Referrals / Follow Up: Kenia Morrison MD [Primary Care Provider] - Disposition Disposition (needs filled in before D/C Order can be placed): Home, Self Care
--- NOTE | 2023-05-10 06:29 | PCM.HP.BLA ---
History and Physical Date of Admission: 05/10/23 Visit Reasons: ABNORMAL HIDA SCAN Chief Complaint: abnormal HIDA SCAN Laboratory Development Technician Required: No Is patient in pain?: No Allergies doxycycline Allergy (Verified 03/28/23 13:05) Rashprednisone Allergy (Verified 03/28/23 13:05) Rashatorvastatin Adverse Reaction (Verified 03/28/23 13:05) QgflhHuqjugx-EAT-FhG Reductase Inhibitor Adverse Reaction (Verified 03/28/23 13:05) Other Medications multivitamin 1 tab PO DAILY SUPPLEMENT 06/30/19 [History Confirmed 03/28/23] aspirin 81 mg tablet,delayed release 81 mg PO DAILY #360 tabs 08/30/21 [Rx Confirmed 03/28/23] ascorbic acid (vitamin C) 500 mg capsule mg PO 10/31/21 [History Confirmed 03/28/23] amlodipine 5 mg tablet 5 mg PO DAILY HTN #90 tabs 04/10/22 [Rx Confirmed 03/28/23] lisinopril 20 mg tablet 20 mg PO DAILY HTN #90 tabs 04/10/22 [Rx Confirmed 03/28/23] tamsulosin 0.4 mg capsule 0.4 mg PO DAILY #90 caps 04/10/22 [Rx Confirmed 03/28/23] red yeast rice extract PO 1XD 04/11/22 [History Confirmed 03/28/23] omega 6-aab-owc-fish oil 60 mg-90 mg-500 mg capsule (Fish Oil) 1 cap PO BID 04/11/22 [History Confirmed 03/28/23] meclizine 25 mg tablet 12.5 mg (1/2 x 25 mg) PO BID PRN dizziness #14 tabs 03/07/23 [Rx Confirmed 03/28/23] PFSH Medical History Acute sinusitis, unspecified Acute urinary retention Alcohol use Benign essential hypertension Bruises easily Bruising Carotid arterial disease Cervical radiculopathy Chest pain Difficulty with CPAP use Heartburn HLD (hyperlipidemia) Leg cramps Migraine headache Prostate disease Sleep apnea Smoker Strain of right trapezius muscle Tobacco use disorder Surgical History Carotid stenosis, left History of carotid endarterectomy Hx of esophagogastroduodenoscopy Hx of eye surgery S/P appendectomy S/P carotid endarterectomy (~08/2021) S/P colonoscopy Family History Father Lung cancerUncle Myocardial infarction Social History Smoking Status: Current every day smoker tobacco type: cigarettes second hand exposure: Yes alcohol intake: current substance use type: does not use caffeine: No what type of physical activity do you participate in: walking, running and weight training frequency: 3-4 times per week seatbelt use: always HPI HPI HPI: 62-year-old gentleman is being referred by Dr. Kenia Morrison for surgical consultation regarding abdominal problems and a written compromise surgical consult recommendations will return to him. Patient has ongoing problems with vertigo. He made comment however about upper abdominal bloating sensation and nausea but no emesis. As of March white blood cell count was 9.3 with a hemoglobin of 15.9 hematocrit 49.5 and a platelet count of 284,000. 67% neutrophils. BUN is 16 and creatinine 1.05. Liver function tests were normal. Triglycerides elevated to 221 and cholesterol elevated 235 and LDL elevated at 156 and VLDL elevated at 44 and HDL low at 35. PSA is elevated 8.13. On March 13, 2023 the patient had a abdominal ultrasound. I have personally reviewed these images. No gallstones pericholecystic fluid or gallbladder wall thickening identified. Gallbladder wall is 2 mm. Common bile duct is 5 mm. This was felt to be normal. On March 23, 2023 the patient had a hepatobiliary scan. I have reviewed these images. There is prompt filling of the gallbladder by 10 minutes. Small bowel seen by 15 minutes. Ejection fraction however is less than 5%. This is felt to be an abnormal study. The patient has known extracranial carotid artery occlusive disease. I have most recently seen him October 10, 2022. He has carotid artery disease and peripheral vascular disease at that point appear to be stable. He has had bilateral carotid enterectomy's. He has less than 50% stenosis of bilateral internal carotids. March 06, 2017 because of Hemoccult positive stool the patient had an upper and lower endoscopy. I have her hernia with some distal esophagitis identified. Scattered sigmoid diverticulosis. Internal and external hemorrhoids. The patient notes that he has feeling of nausea and epigastric bloating discomfort particularly after fatty food meal like Pa's. In the morning he will frequently after breakfast albeit just Cheerios and bananas have the same kind of feeling. He notes he has some shivers after eating is not clear what causes that and he has ongoing problems with dizzy spells not sure whether that is related. ROS General General: Yes fatigue; No weight change, appetite, colon cancer, breast cancer or weakness HEENT HEENT: Yes eye injury; No difficulty swallowing, eye surgery, swollen glands or hoarseness Endo Endocrine: No thyroid disease, diabetes mellitus, thyroid cancer, Hair loss, heat intolerance or cold intolerance Skin Skin: No rash or changing moles Breast Breast: No left breast lump, right breast lump, nipple discharge, breast pain, abnormal mammogram, abnormal US or breast enlargement Musc Musculoskeletal: Yes arthritis; No back problems, rheumatoid arthritis, gout or joint pain Cardio Cardiovascular: No murmur, pacemaker, heart disease, atrial fibrillation, high blood pressure, heart attack, heart stent, palpitations, shortness of breat with exertion or chest pain Psych Psychiatric: No depression, anxiety or hearing voices Resp Respiratory: No shortness of breath, No sleep apnea, No cough, No COPD, No asthma, No emphysema and No wheezing Gastro Gastrointestinal: No abdominal pain, No nausea or vomiting, No diarrhea, No constipation, No blood in stool, No acid reflux, No hemorrhoids, No ulcers, No gallbladder problem and No black,tarry stools Neo Hematologic: No blood thinners, No blood disorders, No bleeding, No anemia and No blood clots Neuro Neurologic: No system reviewed and no additional complaints, except as documented, No as per HPI, No abnormal gait, No abnormal hearing, No abnormal movements, No abnormal speech, No behavioral changes, No burning sensations, No confusion, No convulsions, No disequilibrium, No dizziness, No localized weakness, No frequent falls, No headache(s), No lack of coordination, No loss of vision, No memory loss, Yes numbness, No other visual disturbances, No radicular pain, No restless legs, No sensory deficit, No syncope, Yes tingling, No tremor(s), No weakness and No other Exam Const General: cooperative, comfortable and no acute distress HENTX Other: Well-healed bilateral carotid incisions Chest Other: Increased AP diameter Resp Effort & Inspection: normal respiratory effort Auscultation: clear to auscultation bilaterally Cardio Rate: regular rate Rhythm: regular rhythm GI Inspection: normal to inspection Palpation: soft and no hepatosplenomegaly Musc Cervical Spine: normal cervical lordosis Skin General: no rashes or lesions noted Neuro General: patient alert, patient awake and patient oriented x3 Extrem General: no calf tenderness Psych Appearance: grossly normal Assessment and Plan Assessment and Plan (1) Biliary dyskinesia: Status: Acute Plan: I recommended the patient a laparoscopic cholecystectomy was left angiograms with the diagnosis of biliary dyskinesia. The patient certainly seems to suffer particularly after fatty food meals. I described the technique, benefit, risk, alternatives. He has had an opportunity to ask and have questions answered. I have assisted him previously with a laparoscopic appendectomy as well as bilateral carotid endarterectomies. He has had an opportunity to ask and have questions answered. He prefers scheduling sometime in May. I appreciate the ongoing option of assisting with his surgical care. Copy: Dr. Kenia Bronson M.D., F.A.C.S I have examined the patient and the H&P has been reviewed. There are no clinical changes since date of exam. Blane Bronson M.D., F.A.C.S.
--- NOTE | 2023-05-10 06:30 | RAD_ITS ---
CLINICAL HISTORY: Male, 62 years old. Pain PROCEDURE: CHOLANGIOGRAM - intraoperative FLUOROSCOPY TIME (if supplied): (0/19.3) minutes/seconds TECHNIQUE: (2 Cine loops from intraoperative fluoroscopy) FINDINGS: There is contrast in cystic duct, common bile duct, and extending into the duodenum. RAD/Cholangiogram/ O R,Initial IMPRESSION: Intraoperative fluoroscopy. Electronically Signed: Robin Mason MD at 11:04 EST ,
[2023-05-10] MEDS: Cefazolin 2 GM in 0.9% Normal Saline (100mL Bag) 100 ML IV (07:26)
--- NOTE | 2023-05-10 07:30 | GALL_PTH ---
PATHOLOGY RESULTS PATIENT: EVANGELINA CALHOUN [place]: [facility] [place] U[place][id number] AGE/SX: 62/M ROOM: RE05/10/[address]: Dr. Blane Bronson MD : 1960 BED: DIS: 05/10/2023 SPEC #: [id number] RECD: 05/10/23 10:06 STATUS: ALEXSANDRA MCCLURE #: [id number] TIKI: 05/10/23 07:[address]: Blane Bronson DEPT: SURGICAL PATHOLOGY RECD BY: [address] ENTERED: 05/10/23 10:06 SP TYPE: CLARISA TREJO DR: Dr. Kenia Morrison MD Tissues: Gallbladder, NOS Procedures: Surgery Specimen Level III HEADER OPERATION: Laparoscopic cholecystectomy with IOC PRE-OP DIAGNOSIS: Biliary dyskinesia TISSUE SUBMITTED: Gallbladder MICROSCOPIC DIAGNOSIS Gallbladder, cholecystectomy: Cholesterolosis and chronic cholecystitis. Benign pericystic lymph node. AM:daren 05/11/2023 MICROSCOPIC DESCRIPTION Slides are reviewed. GROSS DESCRIPTION Received is one container labeled with the patient's name and designated gallbladder. The specimen consists of a gallbladder measuring 8.0 cm in length and up to 4.0 cm in diameter. The external surface is pink-wright, smooth and glistening for the most part. Focally it is granular, hemorrhagic and contains cautery artifact. The gallbladder contains green-yellow mucoid bile. No stones are identified in the container or in the gallbladder. The gallbladder also contains a few detached fragments of orangish small polypoid tissue consistent with cholesterolosis measuring in aggregate 0.5 x 0.5 x 0.1 cm. The mucosa also shows a few orangish polyps measuring <0.1 to 0.2 cm in greatest dimension. The gallbladder wall measures up to 0.2 cm in thickness. Pet Store Merchandiser sections from the gallbladder and the cystic duct are submitted in one cassette. / SJ:daren 05/10/2023 TC:3 CPT: 44783
[2023-05-10] MEDS: Bupivacaine Mpf 0.5% 30 ML VIAL (08:32)
--- NOTE | 2023-05-10 08:33 | PCM.OPRPT ---
Report of Operation Date of Procedure: 05/10/23 Pre-Operative Diagnosis: Biliary dyskinesia Post-Operative Diagnosis: Biliary dyskinesia Surgery/Procedure Performed:: Laparoscopic ostectomy with cholangiograms Description of Surgical Findings:: Timeout informed consent was obtained. 62-year-old gentleman status complex medical: General tracheal palpation esthesia lumbar sterilely prepped and draped 0.5% Marcaine was used as local acetic skin sites were Emerald size total of 30 cc was used a infraumbilical incision was created holding sutures of 0 Vicryl placed vaginal inserted saline drop test performed the abdomen was insufflated with CO2 to a pressure of 10 mmHg pressure. The 12 mm trocar inserted. 10 mm Scope inserted. No evidence of any trocar injuries. 5 mm ports were placed in the epigastric mid abdomen right lower quadrant. The gallbladder had multiple adhesions of omentum caked over top. These had to be sharply and bluntly dissected free. Hemostasis was obtained with hemoclips were indicated. Finally the infundibulum was identified and blunt dissection was used to get the critical view with the cystic duct and the cystic artery. The cystic artery was clipped proximally and distally prior to transecting it. Hemoclip was placed on the cystic duct stump incision in the cystic duct, interim catheter was inserted through a 14-gauge Angiocath and fluoroscopically controlled cholangiograms demonstrated normal filling of the common bile duct with normal evacuation in the small bowel. The cholangiogram catheter was removed. An additional Hemoclip was placed on the cystic duct stump prior to transecting it. The gallbladder was dissected from the liver bed. An additional Hemoclip was used to connect control a very small structure that could have been a duct of Marysol or small vessel. Gallbladder was released hemostasis was intact electrocautery then fibrillar was placed to assist with complete hemostasis. Gallbladder was placed in a retrieval bag. The right upper quadrant was here inspected and was completely hemostatic. The gallbladder is exited the umbilicus. Deflated CO2. The Fascia at the Umbilicus Proximal Interrupted 0 Vicryl Figure 8 Suture. Skin Edges Approximated with 4 Monocryl Subdermal Sutures. Steri-Strips Telfa OpSite Dressings Applied. Sponge and Instrument and Needle Counts Were Reported the Surgeon to Be Correct. Specimens Gallbladder. Drains None. Blood Loss Minimal. The Patient Was Taken to the Recovery Room in Satisfactory This without Complication Blane Bronson M.D., F.A.C.S. Surgeon: Blane Bronson Type of Anesthesia: General and Local Anesthesiologist: Nahed Little
== END 2023-05-10 14:32 | disposition home or self-care (01) ==
LOC: SDC 05:41 → AC 05:42
PROVIDERS: PCP Internal Medicine; Referring Provider Surgery; Visit Provider Surgery
PROC: (CPT 47610; principal; 2023-05-10 07:10)
DX: K81.1 Chronic cholecystitis (principal); E78.5 Hyperlipidemia, unspecified; I10 Essential (primary) hypertension; F17.210 Nicotine dependence, cigarettes, uncomplicated; Z79.899 Other long term (current) drug therapy; Z79.82 Long term (current) use of aspirin
CPT/HCPCS: 47563; 00790; 36415; 74300; 76000; 80048; 85025; 88304; 93005; J7120; J2405

== ENCOUNTER → 2023-08-20 | Outpatient (CLI) | payer MEDICARE, OTHER, SELFPAY ==
[2023-08-20 09:33] LABS: PSA,Total- Diagnostic 9.11 ng/mL (0.0-4.0)
== END | disposition home or self-care (01) ==
LOC: LAB 08:39
PROVIDERS: PCP Internal Medicine; Visit Provider Urology
DX: R97.20 Elevated prostate specific antigen [PSA] (principal)
CPT/HCPCS: 36415; 84153

== ENCOUNTER → 2023-09-10 | Outpatient (CLI) | payer MEDICARE, OTHER, SELFPAY ==
--- NOTE | 2023-09-10 11:00 | MRI_ITS ---
EXAMINATION: MR Pelvis WO/W Contrast COMPARISON: None CLINICAL HISTORY: 63-year-old man with elevated PSA TECHNIQUE: Standard prostate MR protocol was used before and after administration of 16 cc of IV Clariscan. FINDINGS: Prostate volume: 77 cc Length of membranous urethra: 20 mm Post-biopsy hemorrhage: None Multiparametric MR evaluation: Heterogeneous appearance of the central gland is consistent with benign prostatic hyperplasia. No suspicious T2 hypointense or diffusion restricting lesions. Capsular margin and neurovascular bundle: Normal Seminal vesicles: Normal Lymph nodes: Prominent bilateral 1 cm external iliac lymph nodes. Bones: No suspicious lesions in the field of view. MRI/Pelvis W/WO Contrast IMPRESSION: PI-RADS 2: Benign prostatic hyperplasia. - No suspicious T2 hypointense or diffusion restricting lesions. - Prominent bilateral 1 cm external iliac lymph nodes but otherwise no lymphadenopathy. - No suspicious bone lesions. Electronically Signed: Kemla Miner MD at 3:20 EDT ,
[2023-09-10 11:34] LABS: CREATININE FINGERSTICK < 1.0 mg/dL (0.70-1.30); EGFR FINGERSTICK > 60.0000 mL/min (>60)
== END | disposition home or self-care (01) ==
LOC: MRI 10:33
PROVIDERS: PCP Internal Medicine; Referring Provider Urology; Visit Provider Urology
DX: R97.20 Elevated prostate specific antigen [PSA] (principal)
CPT/HCPCS: 72197; A9575

== ENCOUNTER → 2024-01-30 | Outpatient (CLI) | payer MEDICARE, OTHER, SELFPAY ==
[2024-01-30 15:29] LABS: Absolute Lymphocyte Count 1.98 X10^3/uL (0.83-4.51); Absolute Neutrophil Count 6.5 X10^3/uL (2.0-7.7); Basophil# 0.22 X10^3/uL; Basophil% 2.2 % (0-1); Eosinophil# 0.62 X10^3/uL; Eosinophils% 6.3 % (0-5); Hematocrit 49.6 % (40-54); Lymphocyte # 1.98 X10^3/ul (0.83-4.51); Lymphocyte % 20.1 % (19-41); Mean Corp Hgb Conc 32.3 g/dL (32-36); Mean Corpuscular Hgb 28.8 pg (27.0-32.0); Mean Corpuscular Volume 89.2 fL (80-94); Mean Platelet Vol. 9.3 fl (6.2-12.0); Monocyte# 0.46 X10^3/uL; Monocyte% 4.7 % (0-10); NRBC Flagged by Analyzer 0 % (0-5); Neutrophil # 6.54 X10^3/uL (2.7-7.7); Neutrophil % 66.5 % (47-70); Platelet Count 264 K/mm3 (150-450); RBC Distribution Width CV 13.4 % (11.6-14.6); RBC Distribution Width SD 44.3 fl (35.1-43.9); Red Blood Count 5.56 M/mm3 (4.6-6.2); White Blood Count 9.8 K/mm3 (4.4-11.0)
[2024-01-30 15:41] LABS: Prothrombin Time (Protime)PT. 13.5 SECONDS (11.7-14.9)
[2024-01-30 16:09] LABS: Anion Gap 2 (5-15); BUN 16 mg/dL (7-18); BUN/Creat Ratio 15.8 RATIO (10-20); Calcium,Total 8.8 mg/dL (8.5-10.1); Chloride 110 mmol/L (98-107); Creatinine, Serum 1.01 mg/dL (0.70-1.30); EST Glomerular Filtration Rate 79 mL/min (>60); Est Glom Filt Rate - Afr Amer 95 mL/min (>60); Glucose 91 mg/dL (74-106); Potassium 4.6 mmol/L (3.5-5.1); Sodium Level 138 mmol/L (136-145)
== END | disposition home or self-care (01) ==
PROVIDERS: PCP Internal Medicine; Referring Provider Nurse Practitioner Family; Visit Provider Nurse Practitioner Family
DX: Z01.818 Encounter for other preprocedural examination (principal); R07.9 Chest pain, unspecified
CPT/HCPCS: 36415; 71046; 80048; 85025; 85610

== ENCOUNTER 2024-02-11 07:05 | Day surgery (SDC) | payer MEDICARE, OTHER, SELFPAY ==
[2024-02-08 09:46] VITALS: BMI 28.5
--- NOTE | 2024-02-11 08:59 | CL.D_ITS ---
Patient Name: EVANGELINA CALHOUN Study Date: 02/11/2024 Performing: Edson Can MD Ht: 67 inches 170.18 cm : 1960 Wt: 181.99 lbs 82.55 kg Age: 63 Gender: male BSA: 1.94 PROCEDURE(S) PERFORMED DC01-(54183)LHC/COR/LV CLINICAL PROFILE AND INDICATIONS Indications: Suspected CAD Heart Failure: None Stress/Imaging Stress/Image Study Performed: No CAD Presentations: Symptom unlikely to be ischemic. CONCLUSIONS Non obstructive coronary arteries RECOMMENDATIONS Medical therapy DESCRIPTION OF PROCEDURE The patient arrived to the procedure lab. The risks and benefits of the procedure as well as a full description of our services here and current unavailability of surgical backup were fully explained to the patient and/or their significant other prior to the catheterization. The Timeout was completed, verifying the correct patient and procedure. The patient's procedural site was prepped and draped in the usual fashion. Local anesthetic was given subcutaneously to right radial region with Lidocaine 2%. Local anesthetic was given subcutaneously to right radial region with Lidocaine 2%. Using a modified Seldinger technique, arterial access was obtained via the right radial artery, a 6Fr sheath was inserted. Left Coronary Artery selective angiography was performed in multiple views using a 5 Fr. 4.0 Ursa catheter. Right Coronary Artery selective angiography was then performed in multiple views using a 5 Fr. 4.0 Ursa catheter. Left Ventriculography was performed in NICHOLAS projection using a 5 Fr. Pigtail catheter. LV to AO pullback pressures were then recorded.The arterial sheath was pulled and a TR Band was applied for hemostasis 8 ml of air CORONARY ANGIOGRAPHY DOMINANCE: Right Dominant LEFT HEART ASSESSMENT Left Ventricular Ejection Fraction: by LV Gram 70 % Normal LV wall motion Normal Left Ventricular systolic function LEFT MAIN: Mild calcification, Angiographically normal LEFT ANTERIOR DESCENDING ARTERY: Moderate luminal irregularities up to 50% CIRCUMFLEX ARTERY: Moderate luminal irregularities up to 50% RIGHT CORONARY ARTERY: Mild luminal irregularities less than 30% COMPLICATIONS No Complications PROCEDURE MEDICATIONS Fentanyl 50 mcg IV Versed 1 mg IV Versed 1 mg IV Oxygen: 2 L/min via nasal cannula Baby Aspirin (81mg) 1 Tabs PO @ 02/11/2024 07:43:09 Heparin given IA 02/11/2024 08:44:07 Verapamil 2.5mg, Ntg 100mcgs, 3000 units of Heparin given IA 02/11/2024 08:44:07 SUMMARY OF HEMODYNAMIC DATA Time AIR REST ECG 07:37:55 AO 73/46 (57) SA 08:45:28 LV 81/0, 1 08:50:55 LV 81/1, 13 08:51:01 LV 81/-5, 2 08:51:31 LV 81/0, 2 08:51:37 LVp 85/-2, 5 08:51:45 AOp 84/39 (63) 08:51:50 Signed By Edson Can MD On 02/11/2024 08:58:41 Edson Can MD
== END 2024-02-11 11:00 | disposition home or self-care (01) ==
PROVIDERS: PCP Internal Medicine; Referring Provider Internal Medicine Cardiovascular Disease; Visit Provider Internal Medicine Cardiovascular Disease
DX: I25.10 Atherosclerotic heart disease of native coronary artery without angina pectoris (principal); I73.9 Peripheral vascular disease, unspecified; Z95.820 Peripheral vascular angioplasty status with implants and grafts; Z91.148 Patient's other noncompliance with medication regimen for other reason; Z79.899 Other long term (current) drug therapy; I10 Essential (primary) hypertension; K21.9 Gastro-esophageal reflux disease without esophagitis; E78.2 Mixed hyperlipidemia; F17.210 Nicotine dependence, cigarettes, uncomplicated; R07.9 Chest pain, unspecified
CPT/HCPCS: 93458; 99152; 99153; Q9967; C1769; C1894

== ENCOUNTER → 2024-02-28 | Outpatient (CLI) | payer MEDICARE, OTHER, SELFPAY ==
--- NOTE | 2024-02-28 14:02 | CT_ITS ---
INDICATION: History lung nodules, [facility] (2021) EXAMINATION: CT CHEST WITHOUT CONTRAST - CT Chest W/O Contrast Injection TECHNIQUE: Helically acquired images were obtained of the chest. A radiation dose optimization technique was used for this scan. IV Contrast dosage and agent: None. COMPARISON: Chest x-ray 01/30/2024 FINDINGS: LUNGS, PLEURA AND LARGE AIRWAYS: No masses, consolidation, or edema. No pleural effusion or thickening. No pneumothorax. THYROID: No thyroid lesions. HEART AND PERICARDIUM: Heart size is normal. No pericardial effusion. CORONARY ARTERIES: Coronary artery calcification is seen. VESSELS: Thoracic aorta is not dilated. MEDIASTINUM AND ANSHU: No mediastinal or hilar adenopathy. Esophagus is unremarkable. No hiatal hernia. UPPER ABDOMEN: No acute pathology. BONES: No suspicious lytic or blastic abnormality. CT/Chest without Contrast IMPRESSION: Negative CT chest without contrast. Electronically Signed: Ignacio Flores MD at 14:43 EST ,
[2024-02-28 14:51] LABS: Absolute Lymphocyte Count 1.88 X10^3/uL (0.83-4.51); Absolute Neutrophil Count 7.3 X10^3/uL (2.0-7.7); Basophil% 1.9 % (0-1); Eosinophils% 5.7 % (0-5); Hemoglobin 15.1 g/dL (13.0-16.5); Lymphocyte # 1.88 X10^3/ul (0.83-4.51); Lymphocyte % 17.9 % (19-41); Mean Corp Hgb Conc 32.8 g/dL (32-36); Mean Corpuscular Hgb 28.5 pg (27.0-32.0); Mean Platelet Vol. 9.4 fl (6.2-12.0); Monocyte# 0.46 X10^3/uL; Monocyte% 4.4 % (0-10); NRBC Flagged by Analyzer 0 % (0-5); Neutrophil # 7.29 X10^3/uL (2.7-7.7); Neutrophil % 69.5 % (47-70); Platelet Count 330 K/mm3 (150-450); RBC Distribution Width CV 13.1 % (11.6-14.6); RBC Distribution Width SD 41.4 fl (35.1-43.9); Red Blood Count 5.29 M/mm3 (4.6-6.2); White Blood Count 10.5 K/mm3 (4.4-11.0)
[2024-02-28 15:18] LABS: Vitamin D,25 Hydroxy 24.3 ng/mL
[2024-02-28 15:25] LABS: ALB/GLOB Ratio 0.8 RATIO (0.9-2.4); AST(SGOT) 18 U/L (15-37); Alanine Aminotransfer ALT/SGPT 49 U/L (16-61); Albumin, Serum 3.3 g/dL (3.2-5.0); Alkaline Phosphatase 95 U/L (45-117); Anion Gap 7 (5-15); BUN 16 mg/dL (7-18); BUN/Creat Ratio 15.8 RATIO (10-20); Calcium,Total 8.7 mg/dL (8.5-10.1); Chloride 104 mmol/L (98-107); Cholesterol 151 mg/dL (200); Creatinine, Serum 1.01 mg/dL (0.70-1.30); EST Glomerular Filtration Rate 79 mL/min (>60); Est Glom Filt Rate - Afr Amer 95 mL/min (>60); Globulin 4.1 g/dL (2.2-4.2); Glucose 80 mg/dL (74-106); High Density Lipoprotein 36 mg/dL; Protein, Total 7.4 g/dL (6.4-8.2); Sodium Level 138 mmol/L (136-145); Triglycerides 198 mg/dL; Very Low Density Lipoprotein 40 mg/dL (5-40)
[2024-02-28 15:36] LABS: Hemoglobin A1c 5.7 % (3.8-5.6)
== END | disposition home or self-care (01) ==
PROVIDERS: PCP Internal Medicine; Referring Provider Internal Medicine; Visit Provider Internal Medicine
DX: R07.9 Chest pain, unspecified (principal); I10 Essential (primary) hypertension; I65.21 Occlusion and stenosis of right carotid artery; E55.9 Vitamin D deficiency, unspecified; E78.2 Mixed hyperlipidemia; R19.5 Other fecal abnormalities; R73.9 Hyperglycemia, unspecified; Z13.220 Encounter for screening for lipoid disorders; Z87.898 Personal history of other specified conditions
CPT/HCPCS: 36415; 71250; 80053; 80061; 82306; 83036; 84443; 85025

== ENCOUNTER 2024-06-11 21:17 | Emergency (ER) | payer MEDICARE, OTHER, SELFPAY ==
[2024-06-11 21:17] VITALS: BP 155/80; PULSE 86; RESP 18; TEMP 36.6; O2SAT 97; BMI 29.2
[2024-06-11] MEDS: Famotidine 20 MG Tablet 40 MG PO (21:34)
--- NOTE | 2024-06-11 21:35 | EDS_ITS ---
HPI <LILIBETH Gonzalez - Last Filed: 06/11/24 21:59> History of Present Illness Chief Complaint: Rash Narrative Narrative: Patient was in with an itchy rash to his bilateral arms and trunk that started this afternoon. He denies any new soaps, detergents, medications, body products, or exposure to known allergens. He reports that he did have itchiness to his hands yesterday that went away. He reports that he was exposed to raw chicken on Sunday at work but did not have any rash at that time, he denies any history of chicken allergy. He has had no chest pain, shortness of breath, nausea, vomiting, or angioedema. [facility] <LILIBETH Gonzalez - Last Filed: 06/11/24 21:59> [facility] Medical History Chest pain Wears glasses Arthritis Prostate disease Back pain Benign positional vertigo Gastric reflux CPAP (continuous positive airway pressure) dependence History of pain when walking Hypertension History of echocardiogram History of stress test Cardiology follow-up encounter Strain of right trapezius muscle Cervical radiculopathy Acute sinusitis, unspecified Acute urinary retention Alcohol use Migraine headache Smoker Tobacco use disorder Carotid arterial disease HLD (hyperlipidemia) Benign essential hypertension Home Medications ?Medication ?Instructions ?Recorded ?Last Taken ?Type aspirin 81 mg tablet,delayed 81 mg PO DAILY #360 tabs 08/30/21 02/11/24 Rx release omega 3-ctf-lex-fish oil 60 mg-90 1 cap PO BID 3 Unknown History mg-500 mg capsule (Fish Oil) meclizine 25 mg tablet 12.5 mg (1/2 x 25 mg) PO BID PRN 03/07/23 Unknown Rx dizziness #14 tabs red yeast rice 600 mg capsule 1,200 mg PO BID 04/23/23 Unknown History finasteride 5 mg tablet 5 mg PO QDAY 01/21/24 Unknow n History ezetimibe 10 mg tablet (Zetia) 10 mg PO DAILY #90 tabs 01/30/24 02/11/24 Rx escitalopram oxalate 5 mg tablet 5 mg PO QDAY #90 tabs 03/14/24 Unknown Rx (Lexapro) amlodipine 5 mg tablet 5 mg PO DAILY HTN #90 tabs 0 05/22/24 Unknown Rx lisinopril 20 mg tablet 20 mg PO DAILY HTN #90 tabs 05/22/24 Unknown Rx tamsulosin 0.4 mg capsule 0.4 mg PO QHS #90 caps 05/22 Unknown Rx cholecalciferol (vitamin D3) 25 25 mcg PO DAILY Unknown History mcg (1,000 unit) chewable tablet (VitaJoy Daily D) Allergy/AdvReac Type Severity Reaction Status Date / Time doxycycline Allergy Rash Verified 06/11/24 21:17 prednisone Allergy Rash Verified 06/11/24 21:17 atorvastatin AdvReac Other Verified 06/11/24 21:17 [place]-EPF-ZsW Reductase AdvReac Other Verified 06/11/24 21:17 Inhibitor Family History Father Lung cancer Uncle Myocardial infarction Surgical History H/O right heart catheterization History of laparoscopic cholecystectomy (05/10/23) Hx of vascular surgery History of evacuation of hematoma S/P carotid endarterectomy (~08/2021) History of carotid endarterectomy Hx of eye surgery Carotid stenosis, left S/P colonoscopy Hx of esophagogastroduodenoscopy S/P appendectomy Social History Smoking Status: Current every day smoker tobacco type: cigarettes second hand exposure: Yes alcohol intake: current alcohol intake frequency: a few times a week substance use type: does not use caffeine: No what type of physical activity do you participate in: walking, running and weight training frequency: 3-4 times per week seatbelt use: always ROS <LILIBETH Gonzalez - Last Filed: 06/11/24 21:59> ROS ED Constitutional Constitutional ED: Denies chills or fever(s) Cardiovascular Cardiovascular: Denies chest pain Respiratory/Chest Respiratory/Chest: Denies dyspnea Gastrointestinal Gastrointestinal: Denies abdominal pain, nausea or vomiting Musculoskeletal Musculoskeletal: Denies arthralgias or myalgias Integumentary Reports rash Neurologic Neurologic: Denies weakness Allergic/Immunologic Allergic/Immunologic ED: Reports urticaria; Denies lip swelling or mouth swelling EXAM <LILIBETH Gonzalez - Last Filed: 06/11/24 21:59> Physical Exam Const Vital Signs: 06/11/24 21:17 Temperature 97.8 F Temperature Source Temporal Pulse Rate 86 Respiratory Rate 18 Blood Pressure 155/80 H Blood Pressure Mean 105 Pulse Ox 97 Oxygen Delivery Method Room Air Positive well nourished, well developed and no apparent distress General Appearance ED: well developed HEENT Reports normocephalic and head/scalp atraumatic HEENT Narrative: No angioedema Mouth ED: Yes moist mucous membranes normal Eyes PERRL and EOMs intact bilaterally Neck full ROM and supple Chest Wall inspection of chest normal Resp normal respiratory effort and clear to auscultation bilaterally Cardio regular rate and regular rhythm GI soft to palpation, non-tender, non-distended and no masses Back/Spine normal ROM and normal to inspection Extremity normal to inspection and full ROM Neuro oriented x3, CN's II-XII intact bilaterally, moves all extremities, no focal motor deficits and no sensory deficits noted Sensorium / Orientation: awake and alert Psych mental status grossly normal and thought process normal Skin Skin Narrative: Urticarial rash to the bilateral arms and trunk with slight involvement to the bilateral lower anterior legs <Dr. Ramez Fitzgerald, - Last Filed: 06/11/24 22:15> Physical Exam Const Vital Signs: 06/11/24 21:17 Temperature 97.8 F Temperature Source Temporal Pulse Rate 86 Respiratory Rate 18 Blood Pressure 155/80 H Blood Pressure Mean 105 Pulse Ox 97 Oxygen Delivery Method Room Air [facility] <LILIBETH Gonzalez - Last Filed: 06/11/24 21:59> [facility] Narrative Medical decision making narrative: Patient presenting today with a diffuse urticarial rash to his trunk, arms, and some involvement of the anterior lower legs. He has had no known exposure to any known allergens, no new soaps/detergents/body products. He has no angioedema on exam. No symptoms of anaphylaxis. His vitals are unremarkable and he is otherwise nontoxic-appearing. He did take Benadryl prior to arrival. He was given Pepcid here. I did plan on placing him on a course of prednisone but he is allergic to this. We will try Decadron. He may continue Benadryl and Pepcid at home. Recommended he follow-up with his PCP and he will be discharged in stable condition <Dr. Ramez Fitzgerald, - Last Filed: 06/11/24 22:15> [facility] Treatment and Re-Evaluation :: I have personally performed a face to face assessment of the patient and have reviewed the GLORIA Note. I performed a substantive portion of the visit including all aspects of the following. My gonzalez findings include: History: Patient presents with rash that began today. Patient states the rash started on his hands and has spread to his face and trunk. Patient states he works at [employer] and was exposed to liquid from raw chickens. Patient states he was wearing gloves at the time. Patient denies any new soaps, laundry detergents, fabric softeners, shampoos, or foods. Patient denies any difficulty breathing or difficulty swallowing. Patient denies any chest pain. Patient states he took Benadryl at home with no improvement. Exam: Vital signs are stable except for mildly elevated blood pressure 155/80. Patient is afebrile. Patient is in no acute distress. Oral mucosa is pink and moist. Oropharynx is clear. Airway is patent. Neck is supple. Trachea is midline. There is no JVD. Heart was regular rate and rhythm. Lungs are clear and equal bilaterally. Abdomen is soft. Bowel sounds are normal. There is no tenderness. Skin is warm and dry. There is patchy erythematous urticarial rash noted over the upper extremities, face, and trunk. There are no vesicles or pustules noted. There is no discharge or drainage. There is no involvement of the palms or soles. There is no involvement of the mucous membranes. There are no petechia noted. Cranial nerves II through XII are intact. There are no focal motor or sensory deficits noted. Medical Decision Making: Patient was advised that this does appear to be an allergic urticarial reaction. It is unclear what precipitated this rash. Patient has a history of an allergic reaction to prednisone. Patient is unsure when he was prescribed prednisone. Patient states he did break it into a rash after a surgery. Patient is unsure if the rash was from an antibiotic or the prednisone. Patient was given a dose of Pepcid. Patient was given a prescription for Decadron. Patient was instructed to follow-up with his primary care physician in 5 to 7 days for further evaluation. Patient was instructed to use Benadryl or Claritin as needed for any itching. Patient understood and was agreeable with the plan. All questions were answered. Discharge Plan Triage Chief Complaint: Rash ED Midlevel Provider: Qian Estrada ED Provider: Ramez Fitzgerald Dx/Rx/DC Orders Clinical Impression: Allergic reaction, Urticaria Instructions: ED Hives (Adult) Prescriptions: No Action finasteride 5 mg tablet 5 mg PO QDAY ezetimibe [Zetia] 10 mg tablet 10 mg PO DAILY Qty: 90 3RF aspirin 81 mg tablet,delayed release (DR/EC) 81 mg PO DAILY Qty: 360 0RF red yeast rice 600 mg capsule 1,200 mg PO BID Rx Instructions: give with meal/snack cholecalciferol (vitamin D3) [VitaJoy Daily D] 25 mcg (1,000 unit) tablet,chewable 25 mcg PO DAILY omega 9-dpn-xig-fish oil [Fish Oil] 60-90-500 mg capsule 1 cap PO BID meclizine 25 mg tablet 12.5 mg PO BID PRN (Reason: dizziness) Qty: 14 0RF escitalopram oxalate [Lexapro] 5 mg tablet 5 mg PO QDAY Qty: 90 1RF lisinopril 20 mg tablet 20 mg PO DAILY Qty: 90 3RF amlodipine 5 mg tablet 5 mg PO DAILY Qty: 90 3RF tamsulosin 0.4 mg capsule 0.4 mg PO QHS Qty: 90 3RF Rx Instructions: Take at bedtime Primary Care Provider: Kenia Morrison Referrals: Kenia Morrison MD [Primary Care Provider] - 5-7 Days Activity Restrictions/Additional Instructions: Follow-up with your PCP and return for any worsening symptoms. You can continue to take 25 to 50 mg Benadryl every 4-6 hours as needed. You can also take 20 mg Pepcid (famotidine) which you can buy [id number] twice daily for the next 5 days or until your rash subsides. Print Language: Samoan Disposition Disposition: Home, Self Care
[2024-06-11] MEDS: dexAMETHasone 4 MG Tablet 10 MG PO (22:22)
[2024-06-11 22:26] VITALS: BP 145/60; PULSE 74; RESP 18; TEMP 36.7; O2SAT 97
== END 2024-06-11 22:27 | disposition home or self-care (01) ==
PROVIDERS: Emergency Provider Emergency Medicine; PCP Internal Medicine; Visit Provider Emergency Medicine
DX: L50.0 Allergic urticaria (principal); I10 Essential (primary) hypertension; E78.5 Hyperlipidemia, unspecified; F17.210 Nicotine dependence, cigarettes, uncomplicated; Z79.82 Long term (current) use of aspirin; Z79.899 Other long term (current) drug therapy
CPT/HCPCS: 99283

== ENCOUNTER → 2024-09-10 | Outpatient (CLI) | payer MEDICARE, OTHER, SELFPAY ==
--- NOTE | 2024-09-10 14:40 | CDU_ITS ---
Reason For Study Reason For Study: HX Bilateral ICA Endarterectomy Rt. Velocities/BP Lt. Velocities/BP Prox CCA 109.5/15.1 cm/sec. Prox CCA 123.5/24.8 cm/sec. Mid CCA 117.7/25.5 cm/sec. Mid CCA 101.4/20.4 cm/sec. Dist CCA 102.3/18.9 cm/sec. Dist CCA 113.3/29.9 cm/sec. Prox ICA 88.9/21.7 cm/sec. Lt ICA Prox/BULB - 212.1/40.7 cm/s. Mid ICA 126.2/34.0 cm/sec. Prox ICA 80.9/24.8 cm/sec. Dist ICA 123.6/29.2 cm/sec. Mid ICA 79.7/28.9 cm/sec. Rt. ICA/CCA = 1.1. Dist ICA 77.6/25.9 cm/sec. Prox ECA 182.9/16.0 cm/sec. Lt. ICA/CCA = 2.1. Rt. Vert. 54.8/13.1 cm/sec. Prox ECA 188.0/17.3 cm/sec. Lt. Vert. 45.9/14.7 cm/sec. Right Extracranial There is heterogeneous, irregular atherosclerotic plaque noted in the right common carotid artery. There is heterogeneous, irregular atherosclerotic plaque noted in the right internal carotid artery. HX CEA. There is heterogeneous, irregular atherosclerotic plaque noted in the right external carotid artery. Antegrade flow is noted in the right vertebral artery. There is heterogeneous, irregular atherosclerotic plaque noted in the right bulb. Left Extracranial There is heterogeneous, irregular atherosclerotic plaque noted in the left common carotid artery. There is heterogeneous, irregular atherosclerotic plaque noted in the left internal carotid artery. The atherosclerotic plaque causes acoustic shadowing. HX CEA. There is heterogeneous, irregular atherosclerotic plaque noted in the left external carotid artery. Antegrade flow is noted in the left vertebral artery. There is heterogeneous, irregular atherosclerotic plaque noted in the left bulb. Procedure Carotid Duplex 92215. This is a Carotid Duplex examination using B-mode, color flow and specral Doppler. The exam was diagnostic. Exam performed in department. VL/Carotid Duplex Ultrasound Interpretation Summary Moderate (50-69%) stenosis right extracranial internal carotid. Moderate (50-69%) stenosis left extracranial internal carotid. Limited dure to calcific shadowing, alternative imaging may be beneficial. Patent and antegrade vertebrals bilaterally. Ordering Physician: Jacklyn Pace Referring Physician: Kenia Morrison M.D. Performed By: Gilberto Isaac RVT
== END | disposition home or self-care (01) ==
LOC: CVS 14:39
PROVIDERS: PCP Internal Medicine; Referring Provider Nurse Practitioner Gerontology; Visit Provider Nurse Practitioner Gerontology
DX: I65.23 Occlusion and stenosis of bilateral carotid arteries (principal); R42 Dizziness and giddiness
CPT/HCPCS: 93880

== ENCOUNTER → 2024-09-18 | Outpatient (CLI) | payer MEDICARE, OTHER, SELFPAY ==
[2024-09-18 09:58] LABS: PSA,Total- Diagnostic 3.47 ng/mL (0.00-4.00)
== END | disposition home or self-care (01) ==
LOC: LAB 08:35
PROVIDERS: PCP Internal Medicine; Referring Provider Nurse Practitioner; Visit Provider Nurse Practitioner
DX: R97.20 Elevated prostate specific antigen [PSA] (principal)
CPT/HCPCS: 36415; 84153